=== PATIENT | male | born 1945 | race Caucasian/White ===

== ENCOUNTER 2019-10-21 12:58 | Inpatient (IN) ==
[2019-10-21] MEDS ORDERED: DIPH,PERTUSS(ACELL),TET VAC/PF 0.5 ML SYRINGE IM ONE (13:05)
--- NOTE | 2019-10-21 14:42 | Emergency Department Note ---
HPI General Chief complaint: Fall Stated complaint: R hip pain, Ground level fall Time Seen by Provider: 10/21/19 13:03 Source: patient Mode of arrival: EMS Limitations: no limitations History of Present Illness HPI Narrative: Narrative: Patient presents emergency department for evaluation of right hip and thigh pain after fall. He was standing on a tailgate of a pickup truck tailgate gave way and he slipped and fell to the ground injuring his right hip. He sustained abrasions and skin slip to the elbows. He is not certain his last tetanus immunization was. No other complaints. No other injury. Related Data Home Medications Medication Instructions Recorded Confirmed amlodipine 10 mg PO DAILY 03/14/15 10/21/19 carvedilol 12.5 mg PO ONCE 03/14/15 10/21/19 lisinopril 20 mg PO DAILY 03/14/15 10/21/19 Allergies Allergy/AdvReac Type Severity Reaction Status Date / Time No Known Drug Allergies Allergy Verified 09/18/18 10:25 Review of Systems ROS ROS Narrative: Narrative: As above, all other systems reviewed and negative. [facility] Narrative Patient History Narrative: Narrative: Reviewed Medical/Surgical/Family History All Active Problems (Updated 10/21/19 @ 16:12 by Jerald Edge MD) Cervical disc disease (Chronic) Closed fracture of proximal end of femur (Acute) Medical History Cervical disc disease (Chronic) Social History Smoking Status: Current every day smoker Alcohol Intake Frequency: 2+ drinks per day Substance Use: does not use Exam Narrative Narrative: Narrative: Vital signs reviewed, please see nursing documentation. General Limitations: no limitations General appearance: alert Head Head: atraumatic, normocephalic and normal inspection Eye Eye: Present normal appearance, PERRL and EOMI ENT ENT: Present normal exam Neck Neck: Present normal inspection Respiratory Respiratory: Absent respiratory distress Extremities Extremities: Present other (Right lower extremity with tenderness to palpation over the hip.) Neurological Neurological: Present alert, oriented X3 and CN II-XII intact; Absent motor sensory deficit Psychiatric Psychiatric: Present normal affect Skin Skin: Present warm and dry Course Vital Signs Vital signs: Vital Signs Temperature 98.2 F 10/21/19 13:00 Pulse Rate 54 L 10/21/19 13:00 Respiratory Rate 18 10/21/19 13:00 Blood Pressure 124/112 10/21/19 13:00 Pulse Oximetry (%) 99 10/21/19 13:00 Temperature 98.2 F 10/21/19 13:00 Pulse Rate 60 10/21/19 16:03 Respiratory Rate 15 10/21/19 16:03 Blood Pressure 168/97 10/21/19 15:32 Pulse Oximetry (%) 99 10/21/19 16:03 MDM MDM Narrative Medical decision making narrative: Narrative: Patient medicated with morphine. I spoke with Dr. Fong the patient's orthopedic surgeon and Dr. Gregorio on-call orthopedic surgeon. Case reviewed in detail over the phone. Dr. Gregorio requested the hospitalist service admit the patient and requested a CT of the hip. I spoke with Dr. Ndiaye on-call hospitalist. Case reviewed in detail over the phone. Patient will be admitted to the hospitalist service. Lab Data Result diagrams: 10/21/19 15:40 10/21/19 15:40 Discharge Plan Patient/Caregiver Discharge Instructions Pt seen by PROCESS MECHANIC/PA only: No Clinical Impression: Closed fracture of proximal end of femur Patient Disposition: Xfer As Inpt ([facility]) Follow up with: Dillan Jimenez MD [Primary Care Provider] - Prescriptions: No Action carvedilol 12.5 MG tablet 12.5 mg PO ONCE RF: 0 amlodipine 5 MG tablet 10 mg PO DAILY RF: 0 lisinopril 20 MG tablet 20 mg PO DAILY RF: 0
--- NOTE | 2019-10-21 15:04 | XRay Report ---
CLINICAL INFORMATION: pre op COMPARISON: None. FINDINGS: The heart is mildly enlarged. Mediastinum and pulmonary vessels are normal. Few small calcified granulomas in the perihilar regions noted. No infiltrates or effusions. IMPRESSION: Mild cardiomegaly - no acute disease Interpreted and Authenticated by: Kalyan Jacobs 10/21/19
--- NOTE | 2019-10-21 15:07 | XRay Report ---
CLINICAL INFORMATION: s/p fall COMPARISON: None. FINDINGS: Right total hip prostheses in anatomic alignment. There is an oblique minimally displaced fracture through the intertrochanteric region of the proximal right femur. Moderate degenerative change seen in the left hip and both SI joints. Heavy atherosclerotic calcification seen in the iliac and femoral arteries IMPRESSION: Oblique minimally displaced fracture through the intertrochanteric region of the right femur Interpreted and Authenticated by: Kalyan Jacobs 10/21/19
--- NOTE | 2019-10-21 15:08 | XRay Report ---
CLINICAL INFORMATION: s/p fall COMPARISON: None. FINDINGS: An acute oblique minimally displaced fracture through the intertrochanteric right femur extending through the greater trochanteric base. Right total hip prostheses is anatomically aligned. Atherosclerotic plaque present in the femoral arteries. Mild degenerative change seen in the patellofemoral tibiofemoral joints. IMPRESSION: Oblique minimally displaced intertrochanteric fracture Interpreted and Authenticated by: Kalyan Jacobs 10/21/19
[2019-10-21 16:29] LABS: Basophils # (Auto) 0.06 K/mcL (0.00-0.30); Basophils % (Auto) 0.5 % (0.0-2.0); Eosinophils # (Auto) 0.08 K/mcL (0.00-0.70); Eosinophils % (Auto) 0.6 % (0.0-7.0); Hematocrit 41.4 % (40.1-51.0); Lymphocytes % (Auto) 13.5 % (15.5-49.0); Mean Cell Volume 94.3 fL (80.0-100.0); Mean Corpuscular HGB Conc 36.2 g/dL (31.0-36.0); Mean Platelet Volume 9.6 fL (7.4-10.4); Monocytes # (Auto) 0.93 K/mcL (0.10-0.90); Monocytes % (Auto) 7.4 % (1.0-12.0); Platelet Count 187 K/mcL (140-440); RBC 4.39 M/mcL (4.63-6.08); Red Cell Distribution Width 11.5 % (11.5-14.5); WBC 12.6 K/mcL (4.50-11.00)
[2019-10-21 16:38] LABS: Prothrombin Time 13.9 sec (11.9-14.5)
[2019-10-21 16:45] LABS: Blood Urea Nitrogen 7 mg/dl (8-23); Calcium 8.7 mg/dl (8.6-10.4); Carbon Dioxide 21 mmol/L (22-30); Glomerular Filtration Rate 89; Glucose 105 mg/dL (70-105)
[2019-10-21 16:48] LABS: Chloride 93 mmol/L (96-108)
--- NOTE | 2019-10-21 17:06 | Cat Scan Report ---
CLINICAL INFORMATION: Trauma COMPARISON: None. TECHNIQUE: 0.625 mm helical slices were obtained from the mid L4 through the subtrochanteric regions. Following reconstruction, 2.5 mm sagittal, coronal and axial reformations were processed. The exam was reviewed in bone and soft tissue windows. The exam was performed using radiation dose optimization techniques including, but not limited to, automated exposure control, adjustment of mA and/or kV according to patient size and use of iterative reconstruction technique. FINDINGS: Right total hip prostheses is anatomically aligned. An obliquely oriented, mildly comminuted fracture through the lateral subtrochanteric region is appreciated. Fragments are displaced 1 cm anteriorly and laterally. Within fractures region, there is a 7 cm area of bone loss. The possibility of pathologic fracture from infection or, less likely, tumor should be entertained. No other osseous abnormality. Mild degenerative changes noted in the SI and left hip joints. Prostate, seminal vesicles and urinary bladder are normal. Scattered sigmoid diverticuli appreciated, but no evidence of diverticulitis. The remaining visualized large bowel and small bowel are normal. Only the distal abdominal aorta is visualized: there is a dissection and a 3.5 cm diameter infrarenal aneurysm. Bilateral L5-S1 spondylolysis with grade 1 spondylolisthesis results in severe bilateral IV foraminal narrowing and impingement of the the exiting L5 nerve roots IMPRESSION: 1. Mildly comminuted, obliquely oriented fracture through the lateral subtrochanteric region of the right hip. The fracture line extends adjacent to the femoral stem of the hip prostheses. There is moderate bone loss at the fracture site and thus the possibility of a pathologic fracture from infection or less likely tumor should be entertained. 2. Only the distal infrarenal abdominal aorta is visualized. There is an aneurysm 3.5 cm or greater with associated dissection. Suggest abdominal aortic ultrasound. 3. Chronic bilateral L5-S1 spondylolysis with grade 1 spondylolisthesis resulting in severe IV foraminal narrowing and impingement of the exiting L5 nerve roots. 4. Sigmoid diverticulosis but no evidence of diverticulitis. 5. Moderate distention of the urinary bladder. Consider Ballard catheter placement Interpreted and Authenticated by: Kalyan Jacobs 10/21/19
[2019-10-21 17:53] LABS: Appearance,Urine CLEAR; Bacteria,Urine 0 /hpf (0); Bilirubin,Urine NEG (NEG); Color,Urine STRAW; Culture Indicated,Urine NO; Glucose,Urine (UA) NEGATIVE (NEG); Ketones,Urine NEG (NEG); Leukocyte Esterase,Urine NEG /uL (NEG); Nitrate,Urine NEG (NEG); Protein,Urine 30 mg/dL (NEG); Specific Gravity,Urine 1.006 (1.000-1.035); Urine Blood NEG mg/dL (<0.03); Urine RBC 0 /hpf (0-1); Urine Squamous Epithelial Cell < 1 /hpf (0-4); Urine Transitional Epi Cells < 1 /hpf (0-2); Urine WBC 0 /hpf (0-4); Urobilinogen,Urine NEG (NEG)
--- NOTE | 2019-10-21 18:31 | Internal Med History&Physical ---
HPI History of Present Illness Patient information: Note initiated : 10/21/19 at 6:31 pm Service Date, if different from initiated Date: [] Patient: Pedrito Escudero a 74 y/o M admitted on for R hip pain, Ground level fall. Chief Complaint: Fall/hip fracture History of present illness: Mr. Escudero is a 74 year old M with a history of hypertension presents to the ER following a fall on his right hip. Patient was carrying a load on his pickup truck when the tailgate gave way and slammed his arm was in him to slip and fall on the ground. Patient was brought to the ER. Initial work-up was consistent with subtrochanteric right hip fracture. Orthopedics was consulted and recommended follow-up on Friday for operative intervention. However due to significant pain patient request admission. 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 Case was discussed by ER physician with interventional radiology who recommended outpatient follow-up for evaluation and subsequently hospitalist service was consulted for pain management. Patient received his usual dose of medication including amlodipine lisinopril due to elevated blood pressure around 160s. At the time of my evaluation patient is alert and oriented. History as above. Denies lightheaded dizziness chest pain or palpitation or shortness of breath. Denies lower back pain but endorses to significant right hip and groin pain. Review of systems 10 point review system was performed and is negative except for ones discussed above [facility] Medical History Cervical disc disease (Chronic) Social History (Updated 09/18/18 @ 11:36 by Makayla Myles PA-C) smoking status: Current every day smoker alcohol intake frequency: 2+ drinks per day substance use type: does not use MEDS/ALLERGIES Home Medications and Allergies Home Medications Medication Instructions Recorded Confirmed Type amlodipine 10 mg PO DAILY 03/14/15 10/21/19 History carvedilol 12.5 mg PO ONCE 03/14/15 10/21/19 History lisinopril 20 mg PO DAILY 03/14/15 10/21/19 History hydrocodone-acetaminophen [[place]] 1 - 2 tab PO Q6H PRN #20 tab 10/21/19 Rx Allergies Allergy/AdvReac Type Severity Reaction Status Date / Time No Known Drug Allergies Allergy Verified 09/18/18 10:25 EXAM Constitutional Vitals: Temp Pulse Resp BP Pulse Ox 98.2 F 46 L 15 159/83 97 10/21/19 13:00 10/21/19 18:15 10/21/19 17:49 10/21/19 17:47 10/21/19 18:15 Alert oriented but anxious Head normocephalic Oral cavity moist No ear nose discharge Eye movement symmetrical Neck supple no lymphadenopathy S1-S2 regular Nonlabored breathing Nondistended nontender abdomen Right lower extremity no shortening however significant pain to passive motion Skin no suspicious lesion Psych-cooperative no hallucination delusion Neuro normal higher function DATA Data Completed and Pending Labs on day of discharge: Labs from last 24 hours 10/21/19 10/21/19 10/21/19 17:56 17:05 15:40 WBC RBC Hgb Hct MCV MCH MCHC RDW Plt Count MPV Gran % Lymph % (Auto) [place] % (Auto) Eos % (Auto) Baso % (Auto) Gran # Lymph # (Auto) [place] # (Auto) Eos # (Auto) Baso # (Auto) PT INR APTT Sodium 127 L Potassium 4.5 Chloride 93 L Carbon Dioxide 21 L Anion Gap 13.0 BUN 7 L Creatinine 0.8 GFR Calculation 89 Glucose 105 Calcium 8.7 Urine Color Straw Urine Appearance Clear Urine pH 7.0 Ur Specific [place] 1.006 Urine Protein 30 A Urine Glucose (UA) Negative Urine Ketones Neg Urine Occult Blood Neg Urine Nitrate Neg Urine Bilirubin Neg Urine Urobilinogen Neg Ur Leukocyte Esterase Neg Urine RBC 0 Urine WBC 0 Ur Squamous Epith Cells < 1 Ur Transition Epith Cell < 1 Urine Bacteria 0 Ur Culture Indicated? No COVID-19 PCR Pending 10/21/19 10/21/19 15:40 15:40 WBC 12.6 H RBC 4.39 L Hgb 15.0 Hct 41.4 MCV 94.3 MCH 34.2 H MCHC 36.2 H RDW 11.5 Plt Count 187 MPV 9.6 Gran % 78.0 Lymph % (Auto) 13.5 L [place] % (Auto) 7.4 Eos % (Auto) 0.6 Baso % (Auto) 0.5 Gran # 9.80 H Lymph # (Auto) 1.70 [place] # (Auto) 0.93 H Eos # (Auto) 0.08 Baso # (Auto) 0.06 PT 13.9 INR 1.0 APTT 34 Sodium Potassium Chloride Carbon Dioxide Anion Gap BUN Creatinine GFR Calculation Glucose Calcium Urine Color Urine Appearance Urine pH Ur Specific [place] Urine Protein Urine Glucose (UA) Urine Ketones Urine Occult Blood Urine Nitrate Urine Bilirubin Urine Urobilinogen Ur Leukocyte Esterase Urine RBC Urine WBC Ur Squamous Epith Cells Ur Transition Epith Cell Urine Bacteria Ur Culture Indicated? COVID-19 PCR A/P Narrative A/P Narrative: * Right hip fracture-orthopedics recommends surgery on Friday. However we will continue pain management. Admit as observation. * Infrarenal abdominal type B uncomplicated aortic dissection. Target blood pressure control with systolics less than 140. Interventional radiology consulted and recommends outpatient follow-up for evaluation for endograft repair. Size 3.5 cm without evidence of malperfusion. Abdominal ultrasound * history of hypertension continue BRONSON inhibitor/beta-tri/calcium channel tri and as needed hydralazine * Pain management continue opioids * Full code * Prophylaxis heparin Plan * Observation admit * Pain management * Blood pressure control * Orthopedic consult Time Spent With Patient Time: Total time spent is greater than 50% in coordination of care (as documented) at patient's floor/unit and/or counseling patient:
[2019-10-21] MEDS ORDERED: amLODIPine 10 MG TABLET PO ONE (18:52)
[2019-10-21] MEDS ORDERED: LISINOPRIL 20 MG TABLET PO ONE (18:53)
--- NOTE | 2019-10-21 19:53 | Consultation ---
DATE OF CONSULTATION: 10/21/2019 REASON FOR CONSULTATION: Right periprosthetic femur fracture. PHYSICIAN CONSULTING: Dr. Jerald Edge, ER provider, [facility]. HISTORY OF PRESENT ILLNESS: The patient is a 74-year-old male who earlier this afternoon was unloading a truck that was all plywood when he unlashed the tailgate and it fell down on to him resulting in a fall to the ground. He had immediate pain and inability to ambulate, thus he was brought to the emergency department for further evaluation and treatment. On presentation, he was evaluated and found to have fracture of the right proximal femur, which was periprosthetic in nature. Orthopedics was consulted. On presentation, his primary complaint is right hip pain, but also complains of some discomfort in his right shoulder and also the bottom of the feet bilaterally are kind of cold. PAST MEDICAL HISTORY: Significant for cardiac bigeminy, which he does not have any intervention for in the past and has been stable. He has hypertension. Additional medical problem is celiac disease. PAST SURGICAL HISTORY: Right total hip [place]plasty [place] [address] Hguh Fong. ALLERGIES: NO KNOWN DRUG ALLERGIES. MEDICATIONS: Carvedilol 12.5 mg tablets, amlodipine 5 mg, and lisinopril 20 mg. SOCIAL HISTORY: He does use tobacco on a daily basis. He is and lives with his spouse. He is relatively active, gardening and working around the house. REVIEW OF SYSTEMS: Twelve-point review of systems otherwise negative as mentioned in HPI. PHYSICAL EXAMINATION: VITAL SIGNS: He is afebrile. His blood pressure is 150/90, respiratory rate is 15. His heart rates in the 50s, satting in the 90s on room air. GENERAL: He is alert, oriented, in not acute distress. He is appropriate. HEENT: Head appears atraumatic. EXTREMITIES: Bilateral shoulders reveal that he has an abrasion to his right shoulder, although he has full active range of motion, some discomfort, but not significant and no crepitus with motion. Bilateral elbows, he has abrasions with superficial wounds to his skin; however, he has full active range of motion with no pain, no crepitus with motion. He has full supination and pronation of his forearm. He can make composite fist with flat hand. His pelvis is stable to compression. Bilateral lower extremities, the leg lengths are essentially equal. His right leg is slightly shorter, but this is his baseline. No pain with log roll of the left hip. No tenderness about the knee, the foot, or the ankle. No obvious deformity noted. The right lower extremity does have significant pain with any motion of the hip joint itself, was mostly deferred. No significant knee joint effusion. He does have a bit of atrophy of his quads bilaterally. He has no tenderness about the leg, the foot, or the ankle. His foot is warm and well perfused. Gross sensation to light touch is intact includes sensation of the plantar surface of his foot; however, he reports that it is slightly numb secondary to being cold, is what he believes. IMAGING DATA: He has plain films of the right femur and pelvis demonstrate a well-positioned right total hip arthroplasty in place, it is stable when I compared to radiographs from 2013 based on clinical radiographs with some subsidence compared to the initial postoperative radiographs; however, had been stable since then. He does have what appears to be greater trochanteric femur fracture and question whether this extends medially as it appears to be all laterally based. He has a CT scan that does demonstrate a periprosthetic femur fracture; however, there appears to be a small portion of that involves the medial and proximal portion of the calcars or the femoral neck as well. The implant is in reduced position. He does have some significant atherosclerosis of the femoral arteries, which are also apparent on the radiographs. Labs are pending. EKG is pending. ASSESSMENT AND PLAN: This is a 74-year-old male with a right periprosthetic greater trochanteric femur fracture. I discussed the diagnosis with him at length along with treatment options. I do think that the operative treatment will be beneficial for him. The question is whether the stem is loose or fixed. This is a proximally coated implant, which has proximal fixation. Given the nature of the fracture, there is a risk that the stem is loose. I think if planning for surgery, we had to plan for revision of the stem component. In discussing this with him as well as the implant company, the stem is not available today and has to be ordered. I discussed with the patient as well as with Dr. Hugh Fong. Given the circumstances, plan will be for ordering the stem and will do this on an outpatient basis. Plan for operative fixation of the right periprosthetic proximal femur fracture and potential stem revision on Friday. We will fix the greater trochanter with a [employer] plate. The patient does understand this. He will be discharged with pain medications and he has a walker and crutches already. He can be foot flat weightbearing, nonweightbearing as tolerated. ADRIANNE:stacie Job ID: [id number] Doc ID: [id number] Raji Gregorio MD
[2019-10-21] MEDS ORDERED: BISACODYL 10 MG SUPP.RECT PR PRN (20:14)
[2019-10-21] MEDS ORDERED: hydrALAZINE 20 MG/ML VIAL IV PRN ×2 (20:14→21:46)
[2019-10-21] MEDS ORDERED: MAGNESIUM SULFATE 2 GM/50 ML BAG IV PRN (20:14)
[2019-10-21] MEDS ORDERED: ONDANSETRON 4 MG ODT TABLET SL PRN (20:14)
[2019-10-21] MEDS ORDERED: POTASSIUM CHLORIDE 20 MEQ PACKET PO PRN (20:14)
[2019-10-21] MEDS ORDERED: POLYETHYLENE GLYCOL 3350 17 GM PACKET PO PRN (20:14)
[2019-10-21] MEDS ORDERED: ACETAMINOPHEN 325 MG TABLET PO PRN (20:14)
[2019-10-21] MEDS ORDERED: CARVEDILOL 12.5 MG TABLET PO SCH (20:14)
[2019-10-21] MEDS ORDERED: ACETAMINOPHEN 650 MG/65 ML BOTTLE IV PRN (20:14)
[2019-10-21] MEDS: SENNOSIDES/DOCUSATE SODIUM 1 TAB TABLET PO SCH (21:28)
[2019-10-21] MEDS: HYDROcodone/APAP 5/325MG TABLET PO PRN (21:28)
[2019-10-21] MEDS: DOCUSATE SODIUM 100 MG CAPSULE PO SCH (21:28)
[2019-10-21] MEDS: 0.9 % SODIUM CHLORIDE 10 ML SYRINGE IV SCH (22:36)
[2019-10-21] MEDS ORDERED: CARVEDILOL 6.25 MG TABLET ONE (22:37)
--- NOTE | 2019-10-22 02:33 | Ultrasound Report ---
CLINICAL INFORMATION: aortic disscetion COMPARISON: Pelvic CT 10/21/2019 FINDINGS: Fusiform infrarenal abdominal aortic aneurysm with maximal diameter 4 cm in length and 6.8 cm appreciated. Dissection is seen within the infrarenal segment, but this cannot be followed to the proximal termination due to patient body habitus. No periaortic hemorrhage. Both common iliac arteries are normal in diameter - ETT is 1 cm. There is a critical stenosis in the right common iliac artery with minimal blood flow arterial Doppler. Left common iliac artery is patent. IMPRESSION: Fusiform infrarenal abdominal aortic aneurysm 4 cm diameter and 6.8 cm in length. Dissection flap is seen within the aneurysm but cannot be followed more proximally due to patient body habitus. 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 Suggest: CT abdominal aortogram with run off. If the patient cannot tolerate iodinated contrast, then MR abdominal aortogram with runoff would be an adequate substitute exam. Interpreted and Authenticated by: Kalyan Jacobs 10/22/19
[2019-10-22] MEDS ORDERED: hydrALAZINE 20 MG/ML VIAL ONE (02:37)
[2019-10-22] MEDS: HYDROcodone/APAP 5/325MG TABLET PO PRN ×3 (03:09→13:10)
[2019-10-22] MEDS: HYDROmorphone 0.5 MG/0.5 ML SYRINGE IV PRN ×2 (04:03→19:26)
[2019-10-22] MEDS: 0.9 % SODIUM CHLORIDE 10 ML SYRINGE IV SCH ×3 (04:04→21:11)
[2019-10-22] MEDS: ONDANSETRON 4 MG/2 ML VIAL IV PRN ×3 (04:47→16:11)
[2019-10-22 07:10] LABS: Hematocrit 39.9 % (40.1-51.0); Hemoglobin 13.6 g/dL (13.7-17.5); Mean Corpuscular HGB Conc 34.1 g/dL (31.0-36.0); Mean Platelet Volume 9.4 fL (7.4-10.4); Platelet Count 180 K/mcL (140-440); RBC 4.07 M/mcL (4.63-6.08); Red Cell Distribution Width 11.8 % (11.5-14.5); WBC 11.3 K/mcL (4.50-11.00)
[2019-10-22 07:38] LABS: Chloride 97 mmol/L (96-108)
[2019-10-22 07:39] LABS: ALT/SGPT 13 U/l (0-40); AST/SGOT 21 U/l (0-37); Albumin 3.6 gm/dL (3.2-5.2); Albumin/Globulin Ratio 1.6 (1.0-2.3); Alkaline Phosphatase 45 U/L (39-117); Bilirubin,Direct 0.3 mg/dL (0.0-0.3); Bilirubin,Total 1.1 mg/dL (0.0-1.0); Blood Urea Nitrogen 10 mg/dl (8-23); Calcium 8.5 mg/dl (8.6-10.4); Carbon Dioxide 17 mmol/L (22-30); Globulin 2.2 gm/dL (2.2-3.7); Glomerular Filtration Rate 89; Glucose 116 mg/dL (70-105); Lactate Dehydrogenase 182 U/L (94-250); Triglycerides 123 mg/dl (<150); Uric Acid 6.7 mg/dL (2.5-8.0)
[2019-10-22] MEDS: DOCUSATE SODIUM 100 MG CAPSULE PO SCH ×2 (08:55→21:10)
[2019-10-22] MEDS: CARVEDILOL 12.5 MG TABLET PO SCH (08:56)
[2019-10-22] MEDS: LISINOPRIL 20 MG TABLET PO SCH (08:56)
[2019-10-22 09:00] LABS: Eosinophils % (Manual) 1 % (0-7); Lymphocytes % 10 % (15-49); Monocytes % (Manual) 11 % (1-12); Platelet Estimate NORMAL (NORMAL); RBC Morphology NORMAL (NORMAL); Segmented Neutrophils % 78 % (38-78)
[2019-10-22] MEDS ORDERED: amLODIPine 5 MG TABLET PO SCH (09:00)
--- NOTE | 2019-10-22 10:07 | Internal Med Progress Note ---
SUBJECTIVE Subjective Patient information: Note initiated : 10/22/19 at 10:04 am Service Date, if different from initiated Date: [] Patient: Pedrito Escudero a 74 y/o M admitted on 10/21/19 for R hip pain, Ground level fall. Chief Complaint: [] History of present illness: Mr. Escudero is a 74 year old M with a history of hypertension presents to the ER following a fall on his right hip. Patient was carrying a load on his pickup truck when the tailgate gave way and slammed his arm was in him to slip and fall on the ground. Patient was brought to the ER. Initial work-up was consistent with subtroc hanteric right hip fracture. Orthopedics was consulted and recommended follow- up on Friday for operative intervention. However due to significant pain patient request admission. 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 Case was discussed by ER physician with interventional radiology who recommended outpatient follow-up for evaluation and subsequently hospitalist service was consulted for pain management. Patient received his usual dose of medication including amlodipine lisinopril due to elevated blood pressure around 160s. At the time of my evaluation patient is alert and oriented. History as above. Denies lightheaded dizziness chest pain or palpitation or shortness of breath. Denies lower back pain but endorses to significant right hip and groin pain. 10/21-patient doing a lot better. However overnight remains in pain. On antihypertensives. Blood pressure around 150 this morning. Per Ortho recommendations patient can be weightbearing as tolerated. Physical therapy ongoing. White count 11.3. Constitutional Vitals: Vital Signs Temp Pulse Resp BP Pulse Ox 98.4 F 48 L 16 128/68 98 10/22/19 07:23 10/22/19 07:23 10/22/19 07:23 10/22/19 07:23 10/22/19 07:23 Period Temp Pulse Resp BP Sys/Castro Pulse Ox Last 24 Hr 97.2 F-99.5 F 30-60 10-20 124-195/68-164 96-100 Intake and Output 10/21/19 10/22/19 10/22/19 21:59 05:59 13:59 Intake Total 700 240 Output Total 500 600 Balance -500 100 240 Weight 85.899 kg Alert oriented nonlabored breathing Anxious due to pain Resting in bed Intake & Output: Intake & Output 10/21/19 10/22/19 10/22/19 21:59 05:59 13:59 Intake Total 700 240 Output Total 500 600 Balance -500 100 240 Weight 85.899 kg Intake: Oral 700 240 Output: Void Amount 500 600 Other: Meal Breakfast Percent of Meal Consumed 75% Feeding Ability Independent Urine Appearance Clear OBJ DATA Labs CBC & Chem 7: 10/22/19 05:40 10/22/19 05:40 Labs: Abnormal Lab Results 10/22/19 10/22/19 10/21/19 05:40 05:40 17:05 WBC 11.3 H RBC 4.07 L Hgb 13.6 L Hct 39.9 L MCH MCHC Lymph % (Auto) Gran # [place] # (Auto) Lymphocytes % 10 L Sodium 128 L Chloride Carbon Dioxide 17 L BUN Glucose 116 H Calcium 8.5 L Total Bilirubin 1.1 H GGT 65 H Total Protein 5.8 L Urine Protein 30 A 10/21/19 10/21/19 15:40 15:40 WBC 12.6 H RBC 4.39 L Hgb Hct MCH 34.2 H MCHC 36.2 H Lymph % (Auto) 13.5 L Gran # 9.80 H [place] # (Auto) 0.93 H Lymphocytes % Sodium 127 L Chloride 93 L Carbon Dioxide 21 L BUN 7 L Glucose Calcium Total Bilirubin GGT Total Protein Urine Protein Meds: Medications Acetaminophen (Tylenol) 650 mg PO Q4-6HP PRN; Protocol PRN Reason: Per Pain Protocol/Fever > 101 Hydrocodone Bitart/Acetaminophen ([place] 5/325mg) 0 tab PO Q4HP PRN; Protocol PRN Reason: Per Pain Protocol Last Admin: 10/22/19 08:54 Dose: 2 tab Documented by: Amlodipine Besylate (Norvasc) 10 mg PO [facility] Bisacodyl (Dulcolax) 10 mg [place] Q2-3DAYS PRN PRN Reason: Constipation [facility]il[facility] ([facility]) [facility] Last Admin: 10/22/19 08:56 Dose: Not Given Documented by: Docusate Sodium (Colace) 100 mg PO BID [facility] Last Admin: 10/22/19 08:55 Dose: 100 mg Documented by: Heparin Sodium (Porcine) (Heparin) 5,000 unit SQ Q12 [facility] Hydralazine HCl (Apresoline) 20 mg IV Q4-6HP PRN PRN Reason: hypertension over 150 Hydromorphone HCl (Dilaudid) 0 mg IV Q4HP PRN; Protocol PRN Reason: Per Pain Protocol Last Admin: 10/22/19 04:03 Dose: 0.5 mg Documented by: Acetaminophen (Ofirmev) 650 mg in 65 mls @ 130 mls/hr IV Q6HP PRN; Protocol PRN Reason: Per Pain Protocol/Fever > 101 Magnesium Sulfate (Magnesium Sulfate) 2 gm in 50 mls @ 50 mls/hr IV UD PRN PRN Reason: MG = or < 1.7 Lisinopril (Zestril) 20 mg PO DAILY [facility] Last Admin: 10/22/19 08:56 Dose: 20 mg Documented by: Melatonin (Melatonin 3mg Tablet) 3 mg PO HSP PRN PRN Reason: Insomnia Nicotine (Nicoderm) 21 mg TOPICAL DAILY@1000 SELMA Ondansetron HCl (Zofran Odt) 4 mg SL Q4-6HP PRN; Protocol PRN Reason: Nausea And Vomiting Ondansetron HCl (Zofran) 4 mg IV Q4-6HP PRN; Protocol PRN Reason: Nausea And Vomiting Last Admin: 10/22/19 04:47 Dose: 4 mg Documented by: Polyethylene Glycol (Miralax) 17 gm PO DAILYP PRN PRN Reason: Constipation Potassium Chloride (Klor-Con) 40 meq PO DAILYP PRN PRN Reason: K+ < 3.5 Senna/Docusate Sodium (Senna Plus Tablet) 1 tab PO HS [facility] Last Admin: 10/21/19 21:28 Dose: 1 tab Documented by: Sodium Chloride (Saline Flush) 10 ml IV Q8 [facility] Last Admin: 10/22/19 04:04 Dose: 10 ml Documented by: A/P Narrative A/P Narrative: * Right hip fracture-orthopedics recommends surgery on Friday. However pain inadequately controlled. Patient will transition to inpatient status * Infrarenal abdominal type B uncomplicated aortic dissection. Target blood pressure control with systolics less than 140. Interventional radiology consulted and recommends outpatient follow-up for evaluation for endograft repair. Size 3.5 cm without evidence of malperfusion. CT abdomen with contrast * history of hypertension continue BRONSON inhibitor/beta-tri/calcium channel tri and as needed hydralazine. Target systolics less than 150 * Pain management continue opioids * Full code * Prophylaxis heparin Plan * Continue pain management * Likely Friday * DVT prophylaxis * CT angiogram chest * Blood pressure control Time Spent With Patient Time: Total time spent is greater than 50% in coordination of care (as documented) at patient's floor/unit and/or counseling patient: QUALITY VTE Deep Vein Thrombosis/Pulmonary Embolism Present on Admission: No
[2019-10-22] MEDS: NICOTINE 21 MG PATCH TOPICAL SCH (10:46)
[2019-10-22] MEDS: HEPARIN 5,000 UNIT/ML VIAL SQ SCH ×2 (10:47→21:10)
[2019-10-22] MEDS: METHOCARBAMOL 750 MG TABLET PO PRN (12:00)
[2019-10-22] MEDS: PROMETHAZINE 25 MG/ML VIAL IV PRN (20:50)
[2019-10-22] MEDS: amLODIPine 10 MG TABLET PO SCH (21:10)
[2019-10-22] MEDS: SENNOSIDES/DOCUSATE SODIUM 1 TAB TABLET PO SCH (21:10)
[2019-10-22] MEDS: LORazepam 2 MG/ML VIAL IV PRN ×2 (21:11→22:26)
[2019-10-23] MEDS: HYDROmorphone 0.5 MG/0.5 ML SYRINGE IV PRN ×2 (01:21→16:04)
[2019-10-23] MEDS: LORazepam 2 MG/ML VIAL IV PRN ×3 (01:22→18:04)
[2019-10-23] MEDS: 0.9 % SODIUM CHLORIDE 10 ML SYRINGE IV SCH ×3 (06:06→20:33)
[2019-10-23] MEDS: HYDROcodone/APAP 5/325MG TABLET PO PRN ×4 (06:06→22:09)
[2019-10-23] MEDS ORDERED: 0.9 % SODIUM CHLORIDE 1,000 ML IV ONE (06:22)
[2019-10-23] MEDS ORDERED: cloNIDine TTS 2 1 PATCH PATCH TD ONE (06:23)
[2019-10-23] MEDS ORDERED: GABAPENTIN 300 MG CAPSULE PO ONE (06:26)
[2019-10-23] MEDS: HEPARIN 5,000 UNIT/ML VIAL SQ SCH ×2 (07:58→20:33)
[2019-10-23] MEDS: LISINOPRIL 20 MG TABLET PO SCH (07:59)
[2019-10-23] MEDS: DOCUSATE SODIUM 100 MG CAPSULE PO SCH ×2 (07:59→20:33)
[2019-10-23] MEDS: CARVEDILOL 12.5 MG TABLET PO SCH (08:00)
[2019-10-23] MEDS: 0.9 % SODIUM CHLORIDE 1,000 ML IV SCH ×5 (08:54→22:18)
[2019-10-23 09:16] LABS: Hematocrit 31.5 % (40.1-51.0); Hemoglobin 11.3 g/dL (13.7-17.5); Mean Cell Volume 95.2 fL (80.0-100.0); Mean Corpuscular HGB Conc 35.9 g/dL (31.0-36.0); Mean Platelet Volume 9.9 fL (7.4-10.4); Platelet Count 160 K/mcL (140-440); RBC 3.31 M/mcL (4.63-6.08); Red Cell Distribution Width 11.5 % (11.5-14.5); WBC 9.8 K/mcL (4.50-11.00)
[2019-10-23] MEDS: NICOTINE 21 MG PATCH TOPICAL SCH (10:04)
--- NOTE | 2019-10-23 10:10 | Cat Scan Report ---
CLINICAL INFORMATION: Abdominal aortic dissection COMPARISON: None. TECHNIQUE: 120 cc of Isovue-370 were injected intravenously and, using SmartPrep to maximize arterial opacification, 0.625 mm helical slices were obtained from the diaphragm through the feet following reconstruction, 2.5 mm sagittal, coronal and axial reformatted images were processed and reviewed at bone and soft tissue windows. 3-D volume rendered and selective CPR images were constructed on an independent workstation.The exam was performed using radiation dose optimization techniques including, but not limited to, automated exposure control, adjustment of the mA and/or kV according to patient size and use of iterative reconstruction technique. FINDINGS: A short segment dissection of the infrarenal abdominal aorta spans 4.5 cm in length and 3.4 cm diameter . The false lumen is completely thrombosed. The suprarenal abdominal aorta is normal diameter 2 cm. Celiac artery is widely patent. The SMA is occluded proximally with collateral reconstitution 2 cm from the origin. There is stenosis greater than 50% in both renal artery orifices. The SIDNEY is patent. Right leg runoff: Complete occlusion of the right common/ external iliac, common femoral and superficial femoral arteries with collateral reconstitution of the proximal popliteal artery. Three vessel trifurcation runoff is patent to ankle level. Left leg runoff: The common iliac is widely patent. There are 2-3 50% stenoses in the external iliac artery. Common femoral and superficial femoral arteries are occluded with collateral reconstitution of the mid popliteal artery. There is faint three-vessel trifurcation runoff to the ankle. Axial images show moderate dilatation of the common bile duct 10 mm due to a 3 cm periampullary diverticulum extrinsically compressing the intrapancreatic common bile duct. 2.4 cm well-circumscribed slightly dense lesion in the superior pole the right kidney likely hyperdense cyst, but suggest ultrasound to confirm. Moderate-sized left scrotal hydrocele noted.. Chronic bilateral L5-S1 spondylolysis with grade 1 spondylolisthesis appreciated IMPRESSION: 1. Short segment dissection of the infrarenal abdominal aorta: 4.5 cm in length and 3.4 cm diameter. The false lumen is completely thrombosed. 2. Proximal SMA occlusion with collateral reconstitution. The celiac and SIDNEY arteries are widely patent. 3. Greater than 50% stenosis of both renal artery origins. 4. Right leg runoff: Complete occlusion of the right iliac, external iliac, common femoral and superficial femoral arteries with collateral reconstitution of the proximal popliteal artery. Three vessel trifurcation runoff is patent to the ankle level. 5.Left leg runoff: The common iliac is widely patent. There are 50% stenoses in the external iliac artery. Common femoral and superficial femoral arteries are occluded with collateral reconstitution of the mid popliteal artery. There is faint three-vessel trifurcation runoff to the ankle. 6. 2.4 cm dense lesion in the superior pole the right kidney. This is likely a hyperdense cyst. Suggest renal ultrasound confirmed. 7. 3 cm periampullary diverticulum extrinsically compressing the intrapancreatic common bile duct resulting in moderate common bile duct dilatation: 10 mm 8. Moderate left scrotal hydrocele Suggest: referral to interventional radiology for standard contrast abdominal aortogram and runoff to confirm the findings of this exam. The patient will likely eventually require surgical bypass grafts in the lower extremity arterial vasculature Interpreted and Authenticated by: Kalyan Jacobs 10/23/19
[2019-10-23 10:44] LABS: ALT/SGPT 11 U/l (0-40); AST/SGOT 18 U/l (0-37); Albumin 3.3 gm/dL (3.2-5.2); Albumin/Globulin Ratio 1.5 (1.0-2.3); Alkaline Phosphatase 45 U/L (39-117); Bilirubin,Direct 0.3 mg/dL (0.0-0.3); Blood Urea Nitrogen 12 mg/dl (8-23); Calcium 8.5 mg/dl (8.6-10.4); Globulin 2.2 gm/dL (2.2-3.7); Glomerular Filtration Rate 89; Glucose 94 mg/dL (70-105); Lactate Dehydrogenase 171 U/L (94-250); Phosphorous 3.3 mg/dL (2.7-4.5); Triglycerides 111 mg/dl (<150)
[2019-10-23 10:45] LABS: Carbon Dioxide 22 mmol/L (22-30); Chloride 89 mmol/L (96-108)
[2019-10-23 11:05] LABS: Band Neutrophils % 3 % (0-10); Eosinophils % (Manual) 1 % (0-7); Lymphocytes % 12 % (15-49); Monocytes % (Manual) 8 % (1-12); Platelet Estimate NORMAL (NORMAL); RBC Morphology NORMAL (NORMAL); Reactive Lymphocytes 1 % (0-2); Segmented Neutrophils % 75 % (38-78)
--- NOTE | 2019-10-23 11:46 | Discharge Summary ---
Discharge Provider Provider Patient information: Note initiated : 10/23/19 at 11:40 am Service Date, if different from initiated Date: [] Patient: Pedrito Escudero a 74 y/o M admitted on 10/21/19 for R hip pain, Ground level fall. Chief Complaint: Discharge diagnosis * Right hip fracture-orthopedics recommends surgery on Friday. Pain adequately controlled. Requesting discharge. Patient will return for operative intervention today * Infrarenal abdominal type B uncomplicated aortic dissection. Systolics at goal around 130s. Interventional radiology consulted and recommends outpatient follow-up for evaluation for endograft repair. Size 3.5 cm without evidence of malperfusion. ( CT abdomen with contrast reveals 4.5 cm x 3.5 cm diameter infrarenal abdominal aortic dissection with complete thrombosis of false lumen. Suggested referral for interventional radiology for standard contrast abdominal aortogram and runoff to confirm the findings. Patient will likely eventually require surgical bypass graft in the lower extremity arterial vasculature) * history of hypertension well-controlled on BRONSON inhibitor/beta-tri/calcium channel tri and as needed hydralazine. Target systolics less than 150 * Pain management well controlled on opioids Brief hospital course istory of present illness: Mr. Escudero is a 74 year old M with a history of hypertension presents to the ER following a fall on his right hip. Patient was carrying a load on his pickup truck when the tailgate gave way and slammed his arm was in him to slip and fall on the ground. Patient was brought to the ER. Initial work-up was consistent with subtrochanteric right hip fracture. Orthopedics was consulted and recommended follow-up on Friday for operative intervention. However due to significant pain patient request admission. 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 Case was discussed by ER physician with interventional radiology who recommended outpatient follow-up for evaluation and subsequently hospitalist service was consulted for pain management. Patient received his usual dose of medication including amlodipine lisinopril due to elevated blood pressure around 160s. At the time of my evaluation patient is alert and oriented. History as above. Denies lightheaded dizziness chest pain or palpitation or shortness of breath. Denies lower back pain but endorses to significant right hip and groin pain. 10/21-patient doing a lot better. However overnight remains in pain. On antihypertensives. Blood pressure around 150 this morning. Per Ortho recommendations patient can be weightbearing as tolerated. Physical therapy ongoing. White count 11.3. 8/8-patient doing a lot better. Feels at baseline. Requesting discharge. Will return for operative intervention on Friday. Will be weightbearing as tolerated as per Ortho with recommendations and use of walker. Date of admission: 10/21/19 19:15 Primary care physician: Dillan Jimenez Consults: 10/21/19 Consult to Physician [CONS] Stat Comment: Consulting Provider: Anatoliy Gaitan Reason For Exam: Physician to Consult Consult to Physician [CONS] Stat Comment: Consulting Provider: Raji Gregorio Reason For Exam: Physician to Consult Discharge Meds Discharge Medications Home Medications amlodipine 10 mg PO DAILY 03/14/15 [History Confirmed 10/21/19 Last Taken 10/21/19] carvedilol 12.5 mg PO DAILY 03/14/15 [History Confirmed 10/21/19 Last Taken 10/21/19 07:00] lisinopril 20 mg PO DAILY 03/14/15 [History Confirmed 10/21/19 Last Taken 10/21/19] hydrocodone-acetaminophen 1 tab PO Q4HP PRN #14 tab 10/23/19 [Rx Last Taken Unknown] methocarbamol 750 mg PO BIDP PRN #10 tab 10/23/19 [Rx Last Taken Unknown] COURSE Time Spent with Patient Time attestation: Total time spent providing and/or coordinating discharge services: EXAM Constitutional Vitals: Temp Pulse Resp BP Pulse Ox 97.7 F 55 L 18 134/69 97 10/23/19 09:00 10/23/19 09:00 10/23/19 09:00 10/23/19 09:00 10/23/19 09:00 Discharge Data Data Completed and Pending Labs on day of discharge: Labs from last 24 hours 10/23/19 10/23/19 07:12 07:12 WBC 9.8 RBC 3.31 L Hgb 11.3 L Hct 31.5 L MCV 95.2 MCH 34.1 H MCHC 35.9 RDW 11.5 Plt Count 160 MPV 9.9 Total Counted 100 Seg Neutrophils % 75 Band Neutrophils % 3 Lymphocytes % 12 L Monocytes % (Manual) 8 Eosinophils % (Manual) 1 Reactive Lymphocytes 1 Platelet Estimate Normal RBC Morphology Normal Sodium 122 L Potassium 4.3 Chloride 89 L Carbon Dioxide 22 Anion Gap 11.0 BUN 12 Creatinine 0.8 GFR Calculation 89 Glucose 94 Uric Acid 6.0 Calcium 8.5 L Phosphorus 3.3 Magnesium 1.8 Total Bilirubin 1.0 Direct Bilirubin 0.3 GGT 52 AST 18 ALT 11 Alkaline Phosphatase 45 Lactate Dehydrogenase 171 Total Protein 5.5 L Albumin 3.3 Globulin 2.2 Albumin/Globulin Ratio 1.5 Triglycerides 111 Discharge Plan Patient/Caregiver Discharge Instructions Activity: ambulate only with your walker Diet: Regular Diet Instructions: Leg Fracture (ED) Activity Restrictions/Additional Instructions: Follow up with orthopedic surgery as instructed. [place] rx: no alcohol, driving, or tylenol with this med. Prescriptions: New hydrocodone-acetaminophen 5-325 mg Tablet 1 tab PO Q4HP PRN (Reason: Per Pain Protocol) Qty: 14 RF: 0 methocarbamol 750 mg Tablet 750 mg PO BIDP PRN (Reason: Muscle Spasm) Qty: 10 RF: 0 Continued carvedilol 12.5 MG tablet 12.5 mg PO DAILY RF: 0 amlodipine 5 MG tablet 10 mg PO DAILY RF: 0 lisinopril 20 MG tablet 20 mg PO DAILY RF: 0 Follow Up Plan Follow up with: Dillan Jimenez MD [Primary Care Provider] - Patient Disposition: Home, Self-Care Prognosis: Fair Rehab Potential: Good I certify that the patient requires SNF services: No Overall status at discharge: patient is progressing back to baseline Interventions Interventions: IV at Discharge Last Done: 10/21/19 19:24 QUALITY VTE Deep Vein Thrombosis/Pulmonary Embolism Present on Admission: No
[2019-10-23] MEDS: METHOCARBAMOL 750 MG TABLET PO PRN (14:31)
--- NOTE | 2019-10-23 15:01 | Internal Med Progress Note ---
SUBJECTIVE Subjective Patient information: Note initiated : 10/23/19 at 2:55 pm Service Date, if different from initiated Date: [] Patient: Pedrito Escudero a 74 y/o M admitted on 10/21/19 for R hip pain, Ground level fall. Chief Complaint: History of present illness: Mr. Escudero is a 74 year old M with a history of hypertension presents to the ER following a fall on his right hip. Patient was carrying a load on his pickup truck when the tailgate gave way and slammed his arm was in him to slip and fall on the ground. Patient was brought to the ER. Initial work-up was consistent with subtrocha nteric right hip fracture. Orthopedics was consulted and recommended follow-up on Friday for operative intervention. However due to significant pain patient request admission. 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 Case was discussed by ER physician with interventional radiology who recommended outpatient follow-up for evaluation and subsequently hospitalist service was consulted for pain management. Patient received his usual dose of medication including amlodipine lisinopril due to elevated blood pressure around 160s. At the time of my evaluation patient is alert and oriented. History as above. Denies lightheaded dizziness chest pain or palpitation or shortness of breath. Denies lower back pain but endorses to significant right hip and groin pain. 10/21-patient doing a lot better. However overnight remains in pain. On antihypertensives. Blood pressure around 150 this morning. Per Ortho recommendations patient can be weightbearing as tolerated. Physical therapy ongoing. White count 11.3. 10/22-patient continues to experience pain in very concerned about gait instability. Spouse at bedside. We will continue pain management/PT OT until patient undergoes surgery. Tolerating diet. No signs of alcohol withdrawal this morning. Lucid alert. On twice a day oral alcohol. Blood pressures at goal. No abdominal pain Constitutional Vitals: Vital Signs Temp Pulse Resp BP Pulse Ox 99.4 F H 53 L 18 109/63 93 10/23/19 13:00 10/23/19 13:00 10/23/19 13:00 10/23/19 13:00 10/23/19 13:00 Period Temp Pulse Resp BP Sys/Castro Pulse Ox Last 24 Hr 97.5 F-99.4 F 43-66 16-20 81-157/61-87 92-98 Intake and Output 10/23/19 10/23/19 10/23/19 05:59 13:59 21:59 Intake Total 300 1927 Output Total 250 350 Balance 50 1577 Weight 86.183 kg Patient Weight 10/24/19 05:59 W eight 86.183 kg alert oriented Nonlabored breathing Right lower extremity tenderness hip/passive range of motion No lymphedema Intake & Output: Intake & Output 10/23/19 10/23/19 10/23/19 05:59 13:59 21:59 Intake Total 300 1927 Output Total 250 350 Balance 50 1577 Weight 86.183 kg Intake: IV 887 Sodium Chloride 0.9% 1,000 ml @ 887 100 mls/hr IV .Q10H [facility] Rx#: [id number] Oral 300 1040 Output: Void Amount 250 350 Other: Meal Lunch Percent of Meal Consumed 100% Urine Appearance Clear Urine Color Dark Yellow OBJ DATA Labs CBC & Chem 7: 10/23/19 07:12 10/23/19 07:12 Labs: Abnormal Lab Results 10/23/19 10/23/19 10/22/19 07:12 07:12 05:40 WBC RBC 3.31 L Hgb 11.3 L Hct 31.5 L MCH 34.1 H MCHC Lymph % (Auto) Gran # [place] # (Auto) Lymphocytes % 12 L Sodium 122 L 128 L Chloride 89 L Carbon Dioxide 17 L BUN Glucose 116 H Calcium 8.5 L 8.5 L Total Bilirubin 1.1 H GGT 65 H Total Protein 5.5 L 5.8 L Urine Protein 10/22/19 10/21/19 10/21/19 05:40 17:05 15:40 WBC 11.3 H RBC 4.07 L Hgb 13.6 L Hct 39.9 L MCH MCHC Lymph % (Auto) Gran # [place] # (Auto) Lymphocytes % 10 L Sodium 127 L Chloride 93 L Carbon Dioxide 21 L BUN 7 L Glucose Calcium Total Bilirubin GGT Total Protein Urine Protein 30 A 10/21/19 15:40 WBC 12.6 H RBC 4.39 L Hgb Hct MCH 34.2 H MCHC 36.2 H Lymph % (Auto) 13.5 L Gran # 9.80 H [place] # (Auto) 0.93 H Lymphocytes % Sodium Chloride Carbon Dioxide BUN Glucose Calcium Total Bilirubin GGT Total Protein Urine Protein Meds: Medications Acetaminophen (Tylenol) 650 mg PO Q4-6HP PRN; Protocol PRN Reason: Per Pain Protocol/Fever > 101 Hydrocodone Bitart/Acetaminophen ([place] 5/325mg) 0 tab PO Q4HP PRN; Protocol PRN Reason: Per Pain Protocol Last Admin: 10/23/19 13:34 Dose: 2 tab Documented by: Amlodipine Besylate (Norvasc) 10 mg PO HS [facility] Last Admin: 10/22/19 21:10 Dose: 10 mg Documented by: Bisacodyl (Dulcolax) 10 mg [place] Q2-3DAYS PRN PRN Reason: Constipation [facility] ([facility]) [facility] Last Admin: 10/23/19 08:00 Dose: 12.5 mg Documented by: Docusate Sodium (Colace) 100 mg PO BID [facility] Last Admin: 10/23/19 07:59 Dose: 100 mg Documented by: Heparin Sodium (Porcine) (Heparin) 5,000 unit SQ Q12 [facility] Last Admin: 10/23/19 07:58 Dose: 5,000 unit Documented by: Hydralazine HCl (Apresoline) 20 mg IV Q4-6HP PRN PRN Reason: hypertension over 150 Hydromorphone HCl (Dilaudid) 0 mg IV Q4HP PRN; Protocol PRN Reason: Per Pain Protocol Last Admin: 10/23/19 01:21 Dose: 0.5 mg Documented by: Acetaminophen (Ofirmev) 650 mg in 65 mls @ 130 mls/hr IV Q6HP PRN; Protocol PRN Reason: Per Pain Protocol/Fever > 101 Magnesium Sulfate (Magnesium Sulfate) 2 gm in 50 mls @ 50 mls/hr IV UD PRN PRN Reason: MG = or < 1.7 Sodium Chloride (Sodium Chloride 0.9%) 1,000 mls @ 100 mls/hr IV .Q10H [facility] Last Admin: 10/23/19 12:48 Dose: 100 mls/hr Documented by: Lisinopril (Zestril) 20 mg PO DAILY [facility] Last Admin: 10/23/19 07:59 Dose: 20 mg Documented by: Lorazepam (Ativan) 1 mg IV Q2HP PRN; Protocol PRN Reason: Alcohol Withdrawal Last Admin: 10/23/19 01:41 Dose: 1 mg Documented by: Melatonin (Melatonin 3mg Tablet) 3 mg PO HSP PRN PRN Reason: Insomnia Methocarbamol (Robaxin) 750 mg PO TIDP PRN PRN Reason: Muscle Spasm Last Admin: 10/23/19 14:31 Dose: 750 mg Documented by: Nicotine (Nicoderm) 21 mg TOPICAL DAILY@1000 SELMA Last Admin: 10/23/19 10:04 Dose: 21 mg Documented by: Ondansetron HCl (Zofran Odt) 4 mg SL Q4-6HP PRN; Protocol PRN Reason: Nausea And Vomiting Ondansetron HCl (Zofran) 4 mg IV Q4-6HP PRN; Protocol PRN Reason: Nausea And Vomiting Last Admin: 10/22/19 16:11 Dose: 4 mg Documented by: Polyethylene Glycol (Miralax) 17 gm PO DAILYP PRN PRN Reason: Constipation Potassium Chloride (Klor-Con) 40 meq PO DAILYP PRN PRN Reason: K+ < 3.5 Promethazine HCl (Phenergan) 6.25 mg IV Q4HP PRN PRN Reason: Nausea And Vomiting Last Admin: 10/22/19 20:50 Dose: 6.25 mg Documented by: Senna/Docusate Sodium (Senna Plus Tablet) 1 tab PO HS [facility] Last Admin: 10/22/19 21:10 Dose: 1 tab Documented by: Sodium Chloride (Saline Flush) 10 ml IV Q8 [facility] Last Admin: 10/23/19 13:54 Dose: Not Given Documented by: A/P Narrative A/P Narrative: * Right hip fracture-managed by orthopedics. Continue pain management. Await operative intervention likely on Friday * Infrarenal abdominal type B uncomplicated aortic dissection. Interventional radiology consulted and recommends outpatient follow-up for evaluation for endograft repair. Size 3.5 cm without evidence of malperfusion. ( CT abdomen with contrast reveals 4.5 cm x 3.5 cm diameter infrarenal abdominal aortic dissection with complete thrombosis of false lumen. Suggested referral for interventional radiology for standard contrast abdominal aortogram and runoff to confirm the findings. Patient will likely eventually require surgical bypass graft in the lower extremity arterial vasculature) * history of hypertension well-controlled on BRONSON inhibitor/beta-tri/calcium channel tri and as needed hydralazine. Target systolics less than 150 * Pain management well controlled on opioids CT abdomen with contrast * Full code * Prophylaxis heparin Plan * Continue pain management * Await further orthopedic intervention * Continue DVT prophylaxis * Blood pressure control Time Spent With Patient Time: Total time spent is greater than 50% in coordination of care (as documented) at patient's floor/unit and/or counseling patient: QUALITY VTE Deep Vein Thrombosis/Pulmonary Embolism Present on Admission: No
[2019-10-23] MEDS ORDERED: IOPAMIDOL 150 ML BOTTLE IV ONE (17:34)
[2019-10-23] MEDS: MELATONIN 3 MG TABLET PO PRN (20:33)
[2019-10-23] MEDS: SENNOSIDES/DOCUSATE SODIUM 1 TAB TABLET PO SCH (20:33)
[2019-10-23] MEDS: amLODIPine 10 MG TABLET PO SCH (20:33)
[2019-10-24] MEDS: PROMETHAZINE 25 MG/ML VIAL IV PRN (01:19)
[2019-10-24] MEDS: HYDROcodone/APAP 5/325MG TABLET PO PRN ×5 (02:07→21:17)
[2019-10-24] MEDS: 0.9 % SODIUM CHLORIDE 1,000 ML IV SCH ×2 (03:41→09:08)
[2019-10-24] MEDS: 0.9 % SODIUM CHLORIDE 10 ML SYRINGE IV SCH ×3 (06:06→22:05)
[2019-10-24 08:34] LABS: Hematocrit 30.6 % (40.1-51.0); Hemoglobin 10.6 g/dL (13.7-17.5); Mean Cell Volume 97.8 fL (80.0-100.0); Mean Corpuscular HGB Conc 34.6 g/dL (31.0-36.0); Platelet Count 164 K/mcL (140-440); RBC 3.13 M/mcL (4.63-6.08); Red Cell Distribution Width 11.8 % (11.5-14.5); WBC 10.4 K/mcL (4.50-11.00)
[2019-10-24] MEDS: HEPARIN 5,000 UNIT/ML VIAL SQ SCH ×2 (08:43→21:16)
[2019-10-24] MEDS: DOCUSATE SODIUM 100 MG CAPSULE PO SCH ×2 (08:43→21:16)
[2019-10-24] MEDS: CARVEDILOL 12.5 MG TABLET PO SCH (08:44)
[2019-10-24] MEDS: LISINOPRIL 20 MG TABLET PO SCH (08:44)
[2019-10-24 09:14] LABS: ALT/SGPT 11 U/l (0-40); AST/SGOT 22 U/l (0-37); Albumin 3.3 gm/dL (3.2-5.2); Albumin/Globulin Ratio 1.4 (1.0-2.3); Alkaline Phosphatase 41 U/L (39-117); Bilirubin,Direct 0.3 mg/dL (0.0-0.3); Blood Urea Nitrogen 8 mg/dl (8-23); Calcium 8.1 mg/dl (8.6-10.4); Carbon Dioxide 20 mmol/L (22-30); Chloride 87 mmol/L (96-108); Globulin 2.3 gm/dL (2.2-3.7); Glomerular Filtration Rate 100; Glucose 85 mg/dL (70-105); Lactate Dehydrogenase 201 U/L (94-250); Phosphorous 2.9 mg/dL (2.7-4.5); Triglycerides 107 mg/dl (<150); Uric Acid 4.6 mg/dL (2.5-8.0)
[2019-10-24] MEDS ORDERED: TAMSULOSIN 0.4 MG CAPSULE PO ONE (09:21)
[2019-10-24] MEDS: NICOTINE 21 MG PATCH TOPICAL SCH (09:26)
[2019-10-24 09:49] LABS: Basophils % (Manual) 1 % (0-2); Eosinophils % (Manual) 1 % (0-7); Lymphocytes % 18 % (15-49); Monocytes % (Manual) 7 % (1-12); Platelet Estimate NORMAL (NORMAL); RBC Morphology NORMAL (NORMAL); Segmented Neutrophils % 73 % (38-78)
--- NOTE | 2019-10-24 11:06 | Internal Med Progress Note ---
SUBJECTIVE Subjective Patient information: Note initiated : 10/24/19 at 11:04 am Service Date, if different from initiated Date: [] Patient: Pedrito Escudero a 74 y/o M admitted on 10/21/19 for R hip pain, Ground level fall. Chief Complaint: [] History of present illness: Mr. Escudero is a 74 year old M with a history of hypertension presents to the ER following a fall on his right hip. Patient was carrying a load on his pickup truck when the tailgate gave way and slammed his arm was in him to slip and fall on the ground. Patient was brought to the ER. Initial work-up was consistent with subtroc hanteric right hip fracture. Orthopedics was consulted and recommended follow- up on Friday for operative intervention. However due to significant pain patient request admission. 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 Case was discussed by ER physician with interventional radiology who recommended outpatient follow-up for evaluation and subsequently hospitalist service was consulted for pain management. Patient received his usual dose of medication including amlodipine lisinopril due to elevated blood pressure around 160s. At the time of my evaluation patient is alert and oriented. History as above. Denies lightheaded dizziness chest pain or palpitation or shortness of breath. Denies lower back pain but endorses to significant right hip and groin pain. 10/21-patient doing a lot better. However overnight remains in pain. On antihypertensives. Blood pressure around 150 this morning. Per Ortho recommendations patient can be weightbearing as tolerated. Physical therapy ongoing. White count 11.3. 10/22-patient continues to experience pain in very concerned about gait instability. Spouse at bedside. We will continue pain management/PT OT until patient undergoes surgery. Tolerating diet. No signs of alcohol withdrawal this morning. Lucid alert. On twice a day oral alcohol. Blood pressures at goal. No abdominal pain 10/23-patient doing well. Pain well controlled. Continuing home medications. Stable labs and hemodynamics. Sodium down to 120. Check urine and serum osmolarity. Continue salt tabs/free water restriction. 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 Every 4 sodium checks. Constitutional Vitals: Vital Signs Temp Pulse Resp BP Pulse Ox 98.4 F 91 H 18 105/72 97 10/24/19 03:15 10/24/19 08:00 10/24/19 08:00 10/24/19 08:00 10/24/19 08:00 Period Temp Pulse Resp BP Sys/Castro Pulse Ox Last 24 Hr 98.3 F-99.4 F 53-91 16-20 105-162/63-77 91-97 Intake and Output 10/23/19 10/24/19 10/24/19 21:59 05:59 13:59 Intake Total 800 1650 1200 Output Total 675 626 750 Balance 125 1024 450 Weight 82.735 kg Intake & Output: Intake & Output 10/23/19 10/24/19 10/24/19 21:59 05:59 13:59 Intake Total 800 1650 1200 Output Total 675 626 750 Balance 125 1024 450 Weight 82.735 kg Intake: IV 950 1000 Sodium Chloride 0.9% 1,000 ml @ 950 1000 100 mls/hr IV .Q10H [facility] Rx#: [id number] Oral 800 700 200 Output: Void Amount 675 625 750 # of times incontinent of urine 1 Other: Meal Breakfast Percent of Meal Consumed 50% Feeding Ability Independent Urine Appearance Clear Clear Clear Urine Color Bright Yellow Bright Yellow Dark Yellow Urine Odor Strong OBJ DATA Labs CBC & Chem 7: 10/24/19 05:35 10/24/19 05:35 Labs: Abnormal Lab Results 10/24/19 10/24/19 10/23/19 05:35 05:35 07:12 WBC RBC 3.13 L Hgb 10.6 L Hct 30.6 L MCH MCHC Lymph % (Auto) Gran # Dixon # (Auto) Lymphocytes % Sodium 120 L 122 L Chloride 87 L 89 L Carbon Dioxide 20 L BUN Creatinine 0.6 L Glucose Calcium 8.1 L 8.5 L Total Bilirubin GGT Total Protein 5.6 L 5.5 L Urine Protein 10/23/19 10/22/19 10/22/19 07:12 05:40 05:40 WBC 11.3 H RBC 3.31 L 4.07 L Hgb 11.3 L 13.6 L Hct 31.5 L 39.9 L MCH 34.1 H MCHC Lymph % (Auto) Gran # Dixon # (Auto) Lymphocytes % 12 L 10 L Sodium 128 L Chloride Carbon Dioxide 17 L BUN Creatinine Glucose 116 H Calcium 8.5 L Total Bilirubin 1.1 H GGT 65 H Total Protein 5.8 L Urine Protein 0810/21/19 10/21/19 17:05 15:40 15:40 WBC 12.6 H RBC 4.39 L Hgb Hct MCH 34.2 H MCHC 36.2 H Lymph % (Auto) 13.5 L Gran # 9.80 H Dixon # (Auto) 0.93 H Lymphocytes % Sodium 127 L Chloride 93 L Carbon Dioxide 21 L BUN 7 L Creatinine Glucose Calcium Total Bilirubin GGT Total Protein Urine Protein 30 A Meds: Medications Acetaminophen (Tylenol) 650 mg PO Q4-6HP PRN; Protocol PRN Reason: Per Pain Protocol/Fever > 101 Hydrocodone Bitart/Acetaminophen ([place] 5/325mg) 0 tab PO Q4HP PRN; Protocol PRN Reason: Per Pain Protocol Last Admin: 10/24/19 10:43 Dose: 2 tab Documented by: Amlodipine Besylate (Norvasc) 10 mg PO [facility] Last Admin: 10/23/19 20:33 Dose: 10 mg Documented by: Bisacodyl (Dulcolax) 10 mg [place] Q2-3DAYS PRN PRN Reason: Constipation Carvedilol (Coreg) 12.5 mg PO [facility] Last Admin: 10/24/19 08:44 Dose: 12.5 mg Documented by: Docusate Sodium (Colace) 100 mg PO BID [facility] Last Admin: 10/24/19 08:43 Dose: 100 mg Documented by: Heparin Sodium (Porcine) (Heparin) 5,000 unit SQ Q12 [facility] Last Admin: 10/24/19 08:43 Dose: 5,000 unit Documented by: Hydralazine HCl (Apresoline) 20 mg IV Q4-6HP PRN PRN Reason: hypertension over 150 Hydromorphone HCl (Dilaudid) 0 mg IV Q4HP PRN; Protocol PRN Reason: Per Pain Protocol Last Admin: 10/23/19 16:04 Dose: 0.25 mg Documented by: Acetaminophen (Ofirmev) 650 mg in 65 mls @ 130 mls/hr IV Q6HP PRN; Protocol PRN Reason: Per Pain Protocol/Fever > 101 Magnesium Sulfate (Magnesium Sulfate) 2 gm in 50 mls @ 50 mls/hr IV UD PRN PRN Reason: MG = or < 1.7 Sodium Chloride (Sodium Chloride 0.9%) 1,000 mls @ 50 mls/hr IV .Q20H [facility] Stop: 10/26/19 08:00 Last Admin: 10/24/19 09:08 Dose: 50 mls/hr Documented by: Lisinopril (Zestril) 20 mg PO DAILY [facility] Last Admin: 10/24/19 08:44 Dose: 20 mg Documented by: Lorazepam (Ativan) 1 mg IV Q2HP PRN; Protocol PRN Reason: Alcohol Withdrawal Last Admin: 10/23/19 18:04 Dose: 1 mg Documented by: Melatonin (Melatonin 3mg Tablet) 3 mg PO HSP PRN PRN Reason: Insomnia Last Admin: 10/23/19 20:33 Dose: 3 mg Documented by: Methocarbamol (Robaxin) 750 mg PO TIDP PRN PRN Reason: Muscle Spasm Last Admin: 10/23/19 14:31 Dose: 750 mg Documented by: Nicotine (Nicoderm) 21 mg TOPICAL DAILY@1000 [facility] Last Admin: 10/24/19 09:26 Dose: 21 mg Documented by: Ondansetron HCl (Zofran Odt) 4 mg SL Q4-6HP PRN; Protocol PRN Reason: Nausea And Vomiting Ondansetron HCl (Zofran) 4 mg IV Q4-6HP PRN; Protocol PRN Reason: Nausea And Vomiting Last Admin: 10/22/19 16:11 Dose: 4 mg Documented by: Polyethylene Glycol (Miralax) 17 gm PO DAILYP PRN PRN Reason: Constipation Potassium Chloride (Klor-Con) 40 meq PO DAILYP PRN PRN Reason: K+ < 3.5 Promethazine HCl (Phenergan) 6.25 mg IV Q4HP PRN PRN Reason: Nausea And Vomiting Last Admin: 10/24/19 01:19 Dose: 6.25 mg Documented by: Senna/Docusate Sodium (Senna Plus Tablet) 1 tab PO HS [facility] Last Admin: 10/23/19 20:33 Dose: 1 tab Documented by: Sodium Chloride (Saline Flush) 10 ml IV Q8 [facility] Last Admin: 10/24/19 06:06 Dose: Not Given Documented by: Tamsulosin HCl (Flomax) 0.4 mg PO [facility] A/P Narrative A/P Narrative: * Right hip fracture-managed by orthopedics. Continue pain management. Await operative intervention likely on Friday * Infrarenal abdominal type B uncomplicated aortic dissection. Interventional radiology consulted and recommends outpatient follow-up for evaluation for endograft repair. Size 3.5 cm without evidence of malperfusion. ( CT abdomen with contrast reveals 4.5 cm x 3.5 cm diameter infrarenal abdominal aortic dissection with complete thrombosis of false lumen. Suggested referral for interventional radiology for standard contrast abdominal aortogram and runoff to confirm the findings. Patient will likely eventually require surgical bypass graft in the lower extremity arterial vasculature) * Euvolemic hyponatremia-sodium 120. Check urine and serum osmolality. 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 Free water restriction/salt tabs * history of hypertension well-controlled on BRONSON inhibitor/beta-tri/calcium channel tri and as needed hydralazine. Target systolics less than 150 * Pain management well controlled on opioids * Full code * Prophylaxis heparin Plan * Continue pain management * Urine serum osmolarity, * Salt tabs/free water restriction * Likely surgical intervention in 24 hours * Continue DVT prophylaxis * Blood pressure control Time Spent With Patient Time: Total time spent is greater than 50% in coordination of care (as documented) at patient's floor/unit and/or counseling patient: QUALITY VTE Deep Vein Thrombosis/Pulmonary Embolism Present on Admission: No
[2019-10-24] MEDS: METHOCARBAMOL 750 MG TABLET PO PRN ×2 (13:39→21:21)
[2019-10-24] MEDS: SODIUM CHLORIDE 1 GM TABLET PO SCH ×2 (15:41→21:16)
[2019-10-24] MEDS: SENNOSIDES/DOCUSATE SODIUM 1 TAB TABLET PO SCH (21:16)
[2019-10-24] MEDS: amLODIPine 10 MG TABLET PO SCH (21:16)
[2019-10-24] MEDS: TAMSULOSIN 0.4 MG CAPSULE PO SCH (21:17)
[2019-10-24] MEDS: MELATONIN 3 MG TABLET PO PRN (21:21)
[2019-10-24] MEDS ORDERED: FUROSEMIDE 20 MG/2 ML VIAL IV ONE ×2 (21:49→22:06)
[2019-10-25] MEDS: HYDROcodone/APAP 5/325MG TABLET PO PRN (02:14)
[2019-10-25] MEDS: 0.9 % SODIUM CHLORIDE 10 ML SYRINGE IV SCH ×3 (04:25→22:05)
[2019-10-25 05:17] LABS: ALT/SGPT 11 U/l (0-40); AST/SGOT 21 U/l (0-37); Albumin/Globulin Ratio 1.4 (1.0-2.3); Alkaline Phosphatase 38 U/L (39-117); Bilirubin,Direct 0.3 mg/dL (0.0-0.3); Blood Urea Nitrogen 7 mg/dl (8-23); Calcium 7.8 mg/dl (8.6-10.4); Carbon Dioxide 19 mmol/L (22-30); Globulin 2.1 gm/dL (2.2-3.7); Glomerular Filtration Rate 100; Glucose 93 mg/dL (70-105); Hematocrit 27.6 % (40.1-51.0); Hemoglobin 9.9 g/dL (13.7-17.5); Lactate Dehydrogenase 175 U/L (94-250); Mean Cell Volume 96.5 fL (80.0-100.0); Mean Corpuscular HGB Conc 35.9 g/dL (31.0-36.0); Mean Platelet Volume 9.9 fL (7.4-10.4); Phosphorous 2.9 mg/dL (2.7-4.5); Platelet Count 144 K/mcL (140-440); RBC 2.86 M/mcL (4.63-6.08); Red Cell Distribution Width 11.5 % (11.5-14.5); Triglycerides 85 mg/dl (<150); Uric Acid 4.5 mg/dL (2.5-8.0); WBC 7.9 K/mcL (4.50-11.00)
[2019-10-25 05:18] LABS: Chloride 92 mmol/L (96-108)
[2019-10-25] MEDS: 0.9 % SODIUM CHLORIDE 1,000 ML IV SCH ×2 (05:55→21:49)
[2019-10-25 06:25] LABS: Eosinophils % (Manual) 1 % (0-7); Lymphocytes % 19 % (15-49); Monocytes % (Manual) 11 % (1-12); Platelet Estimate NORMAL (NORMAL); RBC Morphology NORMAL (NORMAL); Segmented Neutrophils % 69 % (38-78)
[2019-10-25] MEDS: HEPARIN 5,000 UNIT/ML VIAL SQ SCH (09:06)
[2019-10-25] MEDS: LISINOPRIL 20 MG TABLET PO SCH (09:06)
[2019-10-25] MEDS: CARVEDILOL 12.5 MG TABLET PO SCH (09:07)
[2019-10-25] MEDS: DOCUSATE SODIUM 100 MG CAPSULE PO SCH ×2 (09:07→21:53)
[2019-10-25] MEDS: SODIUM CHLORIDE 1 GM TABLET PO SCH ×3 (09:07→21:53)
--- NOTE | 2019-10-25 10:18 | Internal Med Progress Note ---
SUBJECTIVE Subjective Patient information: Note initiated : 10/25/19 at 10:13 am Service Date, if different from initiated Date: [] Patient: Pedrito Escudero a 74 y/o M admitted on 10/21/19 for R hip pain, Ground level fall. Chief Complaint: History of present illness: Mr. Escudero is a 74 year old M with a history of hypertension presents to the ER following a fall on his right hip. Patient was carrying a load on his pickup truck when the tailgate gave way and slammed his arm was in him to slip and fall on the ground. Patient was brought to the ER. Initial work-up was consistent with subtrocha nteric right hip fracture. Orthopedics was consulted and recommended follow-up on Friday for operative intervention. However due to significant pain patient request admission. 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 Case was discussed by ER physician with interventional radiology who recommended outpatient follow-up for evaluation and subsequently hospitalist service was consulted for pain management. Patient received his usual dose of medication including amlodipine lisinopril due to elevated blood pressure around 160s. At the time of my evaluation patient is alert and oriented. History as above. Denies lightheaded dizziness chest pain or palpitation or shortness of breath. Denies lower back pain but endorses to significant right hip and groin pain. 10/21-patient doing a lot better. However overnight remains in pain. On antihypertensives. Blood pressure around 150 this morning. Per Ortho recommendations patient can be weightbearing as tolerated. Physical therapy ongoing. White count 11.3. 10/22-patient continues to experience pain in very concerned about gait instability. Spouse at bedside. We will continue pain management/PT OT until patient undergoes surgery. Tolerating diet. No signs of alcohol withdrawal this morning. Lucid alert. On twice a day oral alcohol. Blood pressures at goal. No abdominal pain 10/23-patient doing well. Pain well controlled. Continuing home medications. Stable labs and hemodynamics. Sodium down to 120. Check urine and serum osmolarity. Continue salt tabs/free water restriction. 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 Every 4 sodium checks. 10/24-patient will undergo right hip surgical repair this afternoon. Sodium improved to 126 from a low of 117. Secondary to pain induced ADH release consis tent with a urine osmolality 349. Continue free water restriction/salt tabs. Will review postoperatively. Pain in good control. Constitutional Vitals: Vital Signs Temp Pulse Resp BP Pulse Ox 98.3 F 62 20 125/75 96 10/25/19 08:00 10/25/19 08:00 10/25/19 08:00 10/25/19 08:00 10/25/19 08:00 Period Temp Pulse Resp BP Sys/Castro Pulse Ox Last 24 Hr 98.2 F-98.8 F 50-86 18-20 88-142/58-75 90-97 Intake and Output 10/24/19 10/25/19 10/25/19 21:59 05:59 13:59 Intake Total 100 1300 Output Total 400 1150 125 Balance -300 150 -125 Weight 84.776 kg alert and oriented tenderness right hip on passive motion No anxiety Intake & Output: Intake & Output 10/24/19 10/25/19 10/25/19 21:59 05:59 13:59 Intake Total 100 1300 Output Total 400 1150 125 Balance -300 150 -125 Weight 84.776 kg Intake: IV 50 1000 Sodium Chloride 0.9% 1,000 ml @ 1000 50 mls/hr IV .Q20H [facility] Rx#: [id number] Oral 50 300 Output: Void Amount 400 1150 125 Other: Feeding Ability Independent Urine Appearance Clear Urine Color Dark Yellow Dark Yellow Urine Odor Normal Normal OBJ DATA Labs CBC & Chem 7: 10/25/19 04:15 10/25/19 08:09 Labs: Abnormal Lab Results 10/25/19 10/25/19 10/25/19 08:09 04:15 04:15 RBC 2.86 L Hgb 9.9 L Hct 27.6 L MCH 34.6 H Lymphocytes % Sodium 126 L 123 L Chloride 92 L Carbon Dioxide 19 L BUN 7 L Creatinine 0.6 L Osmolality Calcium 7.8 L Alkaline Phosphatase 38 L Total Protein 5.1 L Albumin 3.0 L Globulin 2.1 L 10/25/19 10/24/19 10/24/19 00:05 20:15 16:50 RBC Hgb Hct MCH Lymphocytes % Sodium 120 L 117 L* 122 L Chloride Carbon Dioxide BUN Creatinine Osmolality Calcium Alkaline Phosphatase Total Protein Albumin Globulin 10/24/19 10/24/19 10/24/19 12:00 12:00 05:35 RBC Hgb Hct MCH Lymphocytes % Sodium 120 L 120 L Chloride 87 L Carbon Dioxide 20 L BUN Creatinine 0.6 L Osmolality 253 L Calcium 8.1 L Alkaline Phosphatase Total Protein 5.6 L Albumin Globulin 10/24/19 10/23/19 10/23/19 05:35 07:12 07:12 RBC 3.13 L 3.31 L Hgb 10.6 L 11.3 L Hct 30.6 L 31.5 L MCH 34.1 H Lymphocytes % 12 L Sodium 122 L Chloride 89 L Carbon Dioxide BUN Creatinine Osmolality Calcium 8.5 L Alkaline Phosphatase Total Protein 5.5 L Albumin Globulin Meds: Medications Acetaminophen (Tylenol) 650 mg PO Q4-6HP PRN; Protocol PRN Reason: Per Pain Protocol/Fever > 101 Hydrocodone Bitart/Acetaminophen ([place] 5/325mg) 0 tab PO Q4HP PRN; Protocol PRN Reason: Per Pain Protocol Last Admin: 10/25/19 02:14 Dose: 2 tab Documented by: Amlodipine Besylate (Norvasc) 10 mg PO [facility] Last Admin: 10/24/19 21:16 Dose: 10 mg Documented by: Bisacodyl (Dulcolax) 10 mg [place] Q2-3DAYS PRN PRN Reason: Constipation Carvedilol (Coreg) 12.5 mg PO [facility] Last Admin: 10/25/19 09:07 Dose: 12.5 mg Documented by: Docusate Sodium (Colace) 100 mg PO BID [facility] Last Admin: 10/25/19 09:07 Dose: Not Given Documented by: Heparin Sodium (Porcine) (Heparin) 5,000 unit SQ Q12 [facility] Last Admin: 10/25/19 09:06 Dose: Not Given Documented by: Hydralazine HCl (Apresoline) 20 mg IV Q4-6HP PRN PRN Reason: hypertension over 150 Hydromorphone HCl (Dilaudid) 0 mg IV Q4HP PRN; Protocol PRN Reason: Per Pain Protocol Last Admin: 10/23/19 16:04 Dose: 0.25 mg Documented by: Acetaminophen (Ofirmev) 650 mg in 65 mls @ 130 mls/hr IV Q6HP PRN; Protocol PRN Reason: Per Pain Protocol/Fever > 101 Magnesium Sulfate (Magnesium Sulfate) 2 gm in 50 mls @ 50 mls/hr IV UD PRN PRN Reason: MG = or < 1.7 Last Infusion: 10/24/19 15:20 Dose: Infused Documented by: Lisinopril (Zestril) 20 mg PO DAILY [facility] Last Admin: 10/25/19 09:06 Dose: 20 mg Documented by: Lorazepam (Ativan) 1 mg IV Q2HP PRN; Protocol PRN Reason: Alcohol Withdrawal Last Admin: 10/23/19 18:04 Dose: 1 mg Documented by: Melatonin (Melatonin 3mg Tablet) 3 mg PO HSP PRN PRN Reason: Insomnia Last Admin: 10/24/19 21:21 Dose: 3 mg Documented by: Methocarbamol (Robaxin) 750 mg PO TIDP PRN PRN Reason: Muscle Spasm Last Admin: 10/24/19 21:21 Dose: 750 mg Documented by: Nicotine (Nicoderm) 21 mg TOPICAL DAILY@1000 [facility] Last Admin: 10/24/19 09:26 Dose: 21 mg Documented by: Ondansetron HCl (Zofran Odt) 4 mg SL Q4-6HP PRN; Protocol PRN Reason: Nausea And Vomiting Last Admin: 10/24/19 16:35 Dose: 4 mg Documented by: Ondansetron HCl (Zofran) 4 mg IV Q4-6HP PRN; Protocol PRN Reason: Nausea And Vomiting Last Admin: 10/22/19 16:11 Dose: 4 mg Documented by: Polyethylene Glycol (Miralax) 17 gm PO DAILYP PRN PRN Reason: Constipation Potassium Chloride (Klor-Con) 40 meq PO DAILYP PRN PRN Reason: K+ < 3.5 Promethazine HCl (Phenergan) 6.25 mg IV Q4HP PRN PRN Reason: Nausea And Vomiting Last Admin: 10/24/19 01:19 Dose: 6.25 mg Documented by: Senna/Docusate Sodium (Senna Plus Tablet) 1 tab PO [facility] Last Admin: 10/24/19 21:16 Dose: 1 tab Documented by: Sodium Chloride (Saline Flush) 10 ml IV Q8 [facility] Last Admin: 10/25/19 04:25 Dose: Not Given Documented by: Sodium Chloride (Sodium Chloride) 2 gm PO TID [facility] Last Admin: 10/25/19 09:07 Dose: 2 gm Documented by: Tamsulosin HCl (Flomax) 0.4 mg PO [facility] Last Admin: 10/24/19 21:17 Dose: 0.4 mg Documented by: A/P Narrative A/P Narrative: * Right hip fracture-will undergo operative intervention today. Review postop. * Preoperative risk evaluation-based on [employer] risk stratification patient is a high risk overall candidate for immediate postoperative and intraoperative morbidity/mortality/ACS/CVA based on surgery specific risk. Patient is aware of the risks of going to surgery. However surgery and anesthesia specific risks will be discussed by individual care provider. No modifiable risk factors at this time * Infrarenal abdominal type B uncomplicated aortic dissection. Interventional radiology consulted and recommends outpatient follow-up for evaluation for endograft repair. Size 3.5 cm without evidence of malperfusion. ( CT abdomen with contrast reveals 4.5 cm x 3.5 cm diameter infrarenal abdominal aortic dissection with complete thrombosis of false lumen. Suggested referral for interventional radiology for standard contrast abdominal aortogram and runoff to confirm the findings. Patient will likely eventually require surgical bypass graft in the lower extremity arterial vasculature) * Euvolemic hyponatremia-sodium 120. Check urine and serum osmolality. 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 Free water restriction/salt tabs * history of hypertension well-controlled on BRONSON inhibitor/beta-tri/calcium channel tri and as needed hydralazine. Target systolics less than 150 * Pain management well controlled on opioids * Full code * Prophylaxis heparin(held for surgery_ Plan * Review postop * Continue free water restriction/salt tabs * Sodium checks * Pain management * Outpatient interventional radiology follow-up referral for aortic dissection * Blood pressure management * Continue DVT prophylaxis postoperatively. Time Spent With Patient Time: Total time spent is greater than 50% in coordination of care (as documented) at patient's floor/unit and/or counseling patient: QUALITY VTE Deep Vein Thrombosis/Pulmonary Embolism Present on Admission: No
--- NOTE | 2019-10-25 13:58 | Internal Med Progress Note ---
SUBJECTIVE Subjective Patient information: Note initiated : 10/25/19 at 1:50 pm Service Date, if different from initiated Date: [] Patient: Pedrito Escudero a 74 y/o M admitted on 10/21/19 for R hip pain, Ground level fall. Chief Complaint: [] Interval history: History of present illness: Mr. Escudero is a 74 year old M with a history of hypertension presents to the ER following a fall on his right hip. Patient was carrying a load on his pickup truck when the tailgate gave way and slammed his arm was in him to slip and fall on the ground. Patient was brought to the ER. Initial work-up was consistent with subtrochanteric right hip fracture. Orthopedics was consulted and recommended follow-up on Friday for operative intervention. However due to significant pain patient request admission. 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 Case was discussed by ER physician with interventional radiology who recommended outpatient follow-up for evaluation and subsequently hospitalist service was consulted for pain management. Patient received his usual dose of medication including amlodipine lisinopril due to elevated blood pressure around 160s. At the time of my evaluation patient is alert and oriented. History as above. Denies lightheaded dizziness chest pain or palpitation or shortness of breath. Denies lower back pain but endorses to significant right hip and groin pain. 10/21-patient doing a lot better. However overnight remains in pain. On antihypertensives. Blood pressure around 150 this morning. Per Ortho recommendations patient can be weightbearing as tolerated. Physical therapy ongoing. White count 11.3. 10/22-patient continues to experience pain in very concerned about gait instabilit y. Spouse at bedside. We will continue pain management/PT OT until patient undergoes surgery. Tolerating diet. No signs of alcohol withdrawal this morning. Lucid alert. On twice a day oral alcohol. Blood pressures at goal. No abdominal pain 10/23-patient doing well. Pain well controlled. Continuing home medications. Stable labs and hemodynamics. Sodium down to 120. Check urine and serum osmolarity. Continue salt tabs/free water restriction. 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 Every 4 sodium checks. 10/24-patient will undergo right hip surgical repair this afternoon. Sodium improved to 126 from a low of 117. Secondary to pain induced ADH release consistent with a urine osmolality 349. Continue free water restriction/salt tabs. Will review postoperatively. Pain in good control. 10/25 Constitutional Vitals: Vital Signs Temp Pulse Resp BP Pulse Ox 99.4 F H 47 L 20 131/70 96 10/25/19 12:00 10/25/19 12:00 10/25/19 12:00 10/25/19 12:00 10/25/19 12:00 Period Temp Pulse Resp BP Sys/Castro Pulse Ox Last 24 Hr 98.2 F-99.4 F 47-86 - 88-142/58-75 90-97 Intake and Output 10/24/19 10/25/19 10/25/19 21:59 05:59 13:59 Intake Total 100 1300 Output Total 400 1150 125 Balance -300 150 -125 Weight 84.776 kg Intake & Output: Intake & Output 10/24/19 10/25/19 10/25/19 21:59 05:59 13:59 Intake Total 100 1300 Output Total 400 1150 125 Balance -300 150 -125 Weight 84.776 kg Intake: IV 50 1000 Sodium Chloride 0.9% 1,000 ml @ 1000 50 mls/hr IV .Q20H [facility] Rx#: [id number] Oral 50 300 Output: Void Amount 400 1150 125 Other: Feeding Ability Independent Urine Appearance Clear Urine Color Dark Yellow Dark Yellow Urine Odor Normal Normal Exam: General: Alert, Awake, No acute Distress Eyes/N/T: EOMI, Head/Neck: neck supple, CV: RRR, No murmurs, Pulm: Clear b/l, no wheezing/rhonchi/rales Abd: soft, nontender, +BS x4 Ext: no clubbing/cyanosis/edema, right hip in dressings Neuro: Alert, no focal deficits, moves all extremities, Skin: warm/dry OBJ DATA Labs CBC & Chem 7: 10/25/19 04:15 10/25/19 08:09 Labs: Abnormal Lab Results 10/25/19 10/25/19 10/25/19 08:09 04:15 04:15 RBC 2.86 L Hgb 9.9 L Hct 27.6 L MCH 34.6 H Lymphocytes % Sodium 126 L 123 L Chloride 92 L Carbon Dioxide 19 L BUN 7 L Creatinine 0.6 L Osmolality Calcium 7.8 L Alkaline Phosphatase 38 L Total Protein 5.1 L Albumin 3.0 L Globulin 2.1 L 10/25/19 10/24/19 10/24/19 00:05 20:15 16:50 RBC Hgb Hct MCH Lymphocytes % Sodium 120 L 117 L* 122 L Chloride Carbon Dioxide BUN Creatinine Osmolality Calcium Alkaline Phosphatase Total Protein Albumin Globulin 10/24/19 10/24/19 10/24/19 12:00 12:00 05:35 RBC Hgb Hct MCH Lymphocytes % Sodium 120 L 120 L Chloride 87 L Carbon Dioxide 20 L BUN Creatinine 0.6 L Osmolality 253 L Calcium 8.1 L Alkaline Phosphatase Total Protein 5.6 L Albumin Globulin 10/24/19 10/23/19 10/23/19 05:35 07:12 07:12 RBC 3.13 L 3.31 L Hgb 10.6 L 11.3 L Hct 30.6 L 31.5 L MCH 34.1 H Lymphocytes % 12 L Sodium 122 L Chloride 89 L Carbon Dioxide BUN Creatinine Osmolality Calcium 8.5 L Alkaline Phosphatase Total Protein 5.5 L Albumin Globulin Meds: Medications Acetaminophen (Tylenol) 650 mg PO Q4-6HP PRN; Protocol PRN Reason: Per Pain Protocol/Fever > 101 Hydrocodone Bitart/Acetaminophen ([place]co 5/325mg) 0 tab PO Q4HP PRN; Protocol PRN Reason: Per Pain Protocol Last Admin: 10/25/19 02:14 Dose: 2 tab Documented by: Amlodipine Besylate (Norvasc) [address] [facility] Last Admin: 10/24/19 21:16 Dose: 10 mg Documented by: Bisacodyl (Dulcolax) 10 mg [place] Q2-3DAYS PRN PRN Reason: Constipation [facility] ([facility]) [facility] Last Admin: 10/25/19 09:07 Dose: 12.5 mg Documented by: Docusate Sodium (Colace) 100 mg PO BID [facility] Last Admin: 10/25/19 09:07 Dose: Not Given Documented by: Heparin Sodium (Porcine) (Heparin) 5,000 unit SQ Q12 [facility] Last Admin: 10/25/19 09:06 Dose: Not Given Documented by: Hydralazine HCl (Apresoline) 20 mg IV Q4-6HP PRN PRN Reason: hypertension over 150 Hydromorphone HCl (Dilaudid) 0 mg IV Q4HP PRN; Protocol PRN Reason: Per Pain Protocol Last Admin: 10/23/19 16:04 Dose: 0.25 mg Documented by: Acetaminophen (Ofirmev) 650 mg in 65 mls @ 130 mls/hr IV Q6HP PRN; Protocol PRN Reason: Per Pain Protocol/Fever > 101 Magnesium Sulfate (Magnesium Sulfate) 2 gm in 50 mls @ 50 mls/hr IV UD PRN PRN Reason: MG = or < 1.7 Last Infusion: 10/24/19 15:20 Dose: Infused Documented by: Lisinopril (Zestril) 20 mg PO DAILY [facility] Last Admin: 10/25/19 09:06 Dose: 20 mg Documented by: Lorazepam (Ativan) 1 mg IV Q2HP PRN; Protocol PRN Reason: Alcohol Withdrawal Last Admin: 10/23/19 18:04 Dose: 1 mg Documented by: Melatonin (Melatonin 3mg Tablet) 3 mg PO HSP PRN PRN Reason: Insomnia Last Admin: 10/24/19 21:21 Dose: 3 mg Documented by: Methocarbamol (Robaxin) 750 mg PO TIDP PRN PRN Reason: Muscle Spasm Last Admin: 10/24/19 21:21 Dose: 750 mg Documented by: Nicotine (Nicoderm) 21 mg TOPICAL DAILY@1000 [facility] Last Admin: 10/24/19 09:26 Dose: 21 mg Documented by: Ondansetron HCl (Zofran Odt) 4 mg SL Q4-6HP PRN; Protocol PRN Reason: Nausea And Vomiting Last Admin: 10/24/19 16:35 Dose: 4 mg Documented by: Ondansetron HCl (Zofran) 4 mg IV Q4-6HP PRN; Protocol PRN Reason: Nausea And Vomiting Last Admin: 10/22/19 16:11 Dose: 4 mg Documented by: Polyethylene Glycol (Miralax) 17 gm PO DAILYP PRN PRN Reason: Constipation Potassium Chloride (Klor-Con) 40 meq PO DAILYP PRN PRN Reason: K+ < 3.5 Promethazine HCl (Phenergan) 6.25 mg IV Q4HP PRN PRN Reason: Nausea And Vomiting Last Admin: 10/24/19 01:19 Dose: 6.25 mg Documented by: Senna/Docusate Sodium (Senna Plus Tablet) 1 tab PO HS [facility] Last Admin: 10/24/19 21:16 Dose: 1 tab Documented by: Sodium Chloride (Saline Flush) 10 ml IV Q8 [facility] Last Admin: 10/25/19 04:25 Dose: Not Given Documented by: Sodium Chloride (Sodium Chloride) 2 gm PO TID [facility] Last Admin: 10/25/19 09:07 Dose: 2 gm Documented by: Tamsulosin HCl (Flomax) 0.4 mg PO HS [facility] Last Admin: 10/24/19 21:17 Dose: 0.4 mg Documented by: A/P Narrative A/P Narrative: A: *Right hip fracture: s/p ORIF (10/24) -Preoperative risk evaluation-based on RCRI [place] [employer] risk stratification patient is a high risk overall candidate for immediate postoperative and intraoperative morbidity/mortality/ACS/CVA based on surgery specific risk. -Patient is aware of the risks of going to surgery. However surgery and anesthesia specific risks will be discussed by individual care provider. No modifiable risk factors at this time *Infrarenal abdominal type B uncomplicated aortic dissection: IR consulted and recommends outpt f/u for evaluation for endograft repair. Size 3.5 cm without evidence of malperfusion. -CT abdomen with contrast reveals 4.5 cm x 3.5 cm diameter infrarenal abdominal aortic dissection with complete thrombosis of false lumen. 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 *HTN: cont home ACEI/BB/CCB as needed hydralazine. Target systolics less than 150 Plan: -Hip per Ortho -Continue free water restriction/salt tabs -Sodium checks -Pain management -Outpatient interventional radiology follow-up referral for aortic dissection -cont bp meds --ppx: heparin full code Time Spent With Patient Time: Total time spent is greater than 50% in coordination of care (as documented) at patient's floor/unit and/or counseling patient: QUALITY VTE Deep Vein Thrombosis/Pulmonary Embolism Present on Admission: No
[2019-10-25] MEDS ORDERED: 0.9 % SODIUM CHLORIDE 250 ML IV SCH ×2 (15:45→21:10)
[2019-10-25] MEDS ORDERED: ceFAZolin 2 GM in DEXTROSE 5% IN WATER 50 ML IV SCH ×2 (15:45→19:30)
[2019-10-25] MEDS ORDERED: KETAMINE 100 MG/ML ML IV ONE (16:33)
[2019-10-25] MEDS ORDERED: HETASTARCH 6% 500 ML BAG IV ONE (16:33)
[2019-10-25] MEDS ORDERED: ONDANSETRON 4 MG/2 ML VIAL IV ONE (16:33)
[2019-10-25] MEDS ORDERED: ePHEDrine 50 MG/ML AMPUL IV ONE (16:33)
[2019-10-25] MEDS ORDERED: PROPOFOL 200 MG/20 ML VIAL IV ONE (16:33)
[2019-10-25] MEDS ORDERED: LIDOCAINE HCL/PF 100 MG/5 ML SYRINGE IV ONE (16:33)
[2019-10-25] MEDS ORDERED: PHENYLEPHRINE 10 MG/ML VIAL IV ONE (16:33)
[2019-10-25] MEDS ORDERED: fentaNYL 250 MCG/5 ML VIAL IV ONE (16:33)
[2019-10-25] MEDS ORDERED: TRANEXAMIC ACID 1,000 MG/10 ML VIAL IV ONE (16:33)
[2019-10-25] MEDS ORDERED: HYDROmorphone 1 MG/ML SYRINGE IV ONE (16:33)
[2019-10-25] MEDS ORDERED: FUROSEMIDE 20 MG/2 ML VIAL IV ONE (16:33)
[2019-10-25] MEDS ORDERED: VANCOMYCIN 1 GM VIAL TOPICAL SCH (18:15)
[2019-10-25] MEDS ORDERED: diphenhydrAMINE 50 MG/ML VIAL IV PRN (18:53)
[2019-10-25] MEDS ORDERED: MEPERIDINE 25 MG/ML SYRINGE IV PRN (18:53)
[2019-10-25] MEDS ORDERED: NALOXONE HCL 0.4 MG/ML VIAL IV PRN (18:53)
[2019-10-25] MEDS ORDERED: ACETAMINOPHEN 1,000 MG/100 ML BOTTLE IV ONE ×2 (18:53→21:10)
[2019-10-25] MEDS ORDERED: ONDANSETRON 4 MG/2 ML VIAL IV PRN ×2 (18:53→21:10)
[2019-10-25] MEDS ORDERED: IPRATROPIUM/ALBUTEROL 3 ML AMPUL.NEB NEB PRN ×2 (18:53→20:48)
[2019-10-25] MEDS ORDERED: PROMETHAZINE 25 MG/ML VIAL IV PRN ×2 (18:53→21:10)
[2019-10-25] MEDS ORDERED: fentaNYL 100 MCG/2 ML VIAL IV PRN (18:53)
[2019-10-25] MEDS: NICOTINE 21 MG PATCH TOPICAL SCH (18:54)
--- NOTE | 2019-10-25 19:13 | Brief Operative Note ---
Brief Operative Note Date of procedure: 10/25/19 Pre-op diagnosis: right greater trochanteric periprosthesis fracture Post-op diagnosis: same Procedure: ORIF greater trochanteric perprosthetic fracture Grafts/Implants: Yes Anesthesia: GETA Findings: stable stem Complications: none Surgeon: Raji Gregorio Director Public Policy: Kalyan Fong Estimated blood loss (cc): 150 Tourniquet Time (Minutes): 0 Specimens Removed/Pathology: none sent Condition: stable Disposition: PACU
[2019-10-25] MEDS ORDERED: FLEETS ADULT ENEMA PR PRN ×2 (19:14→21:10)
[2019-10-25] MEDS ORDERED: BENZOCAINE/MENTHOL 1 LOZENGE PO PRN ×2 (19:14→21:10)
[2019-10-25] MEDS ORDERED: 0.9 % SODIUM CHLORIDE 1,000 ML IV SCH (19:15)
[2019-10-25] MEDS ORDERED: METHOCARBAMOL 1,000 MG/10 ML VIAL IV PRN (19:19)
[2019-10-25] MEDS ORDERED: oxyCODONE HCL 5 MG TABLET PO PRN (19:19)
[2019-10-25] MEDS ORDERED: fentaNYL 100 MCG/2 ML VIAL IV ONE ×2 (19:54→20:26)
[2019-10-25] MEDS ORDERED: IPRATROPIUM/ALBUTEROL 3 ML AMPUL.NEB NEB ONE (19:57)
[2019-10-25] MEDS ORDERED: SENNOSIDES 1 TABLET PO SCH (21:00)
[2019-10-25] MEDS ORDERED: MELATONIN 3 MG TABLET PO PRN (21:10)
[2019-10-25] MEDS ORDERED: LABETALOL 5 MG/ML ML IV PRN (21:10)
[2019-10-25] MEDS ORDERED: IOPAMIDOL 150 ML BOTTLE IV ONE (21:10)
[2019-10-25] MEDS ORDERED: ACETAMINOPHEN 650 MG/65 ML BOTTLE IV PRN (21:10)
[2019-10-25] MEDS ORDERED: MAGNESIUM SULFATE 2 GM/50 ML BAG IV PRN (21:10)
[2019-10-25] MEDS ORDERED: hydrALAZINE 20 MG/ML VIAL IV PRN (21:10)
[2019-10-25] MEDS ORDERED: POLYETHYLENE GLYCOL 3350 17 GM PACKET PO PRN (21:10)
[2019-10-25] MEDS ORDERED: ONDANSETRON 4 MG ODT TABLET SL PRN (21:10)
[2019-10-25] MEDS ORDERED: BISACODYL 10 MG SUPP.RECT PR PRN (21:10)
[2019-10-25] MEDS: TAMSULOSIN 0.4 MG CAPSULE PO SCH (21:53)
[2019-10-25] MEDS: SENNOSIDES/DOCUSATE SODIUM 1 TAB TABLET PO SCH (21:53)
[2019-10-25] MEDS: amLODIPine 10 MG TABLET PO SCH (21:53)
[2019-10-25] MEDS ORDERED: 0.9 % SODIUM CHLORIDE 10 ML SYRINGE IV SCH (22:00)
[2019-10-25] MEDS ORDERED: ACETAMINOPHEN 325 MG TABLET PO SCH (22:00)
[2019-10-25] MEDS ORDERED: ceFAZolin 1 GM VIAL IV SCH (22:00)
[2019-10-25] MEDS: ACETAMINOPHEN 325 MG TABLET PO SCH (22:04)
[2019-10-25] MEDS: ceFAZolin 1 GM VIAL IV SCH (22:05)
[2019-10-26] MEDS: oxyCODONE HCL 5 MG TABLET PO PRN ×5 (00:40→20:46)
[2019-10-26] MEDS: ACETAMINOPHEN 325 MG TABLET PO SCH (05:23)
[2019-10-26] MEDS: ceFAZolin 1 GM VIAL IV SCH (05:39)
[2019-10-26] MEDS: 0.9 % SODIUM CHLORIDE 10 ML SYRINGE IV SCH ×3 (05:42→22:25)
[2019-10-26 06:45] LABS: Hematocrit 27.4 % (40.1-51.0); Hemoglobin 9.8 g/dL (13.7-17.5); Mean Cell Volume 94.2 fL (80.0-100.0); Mean Corpuscular HGB Conc 35.8 g/dL (31.0-36.0); Mean Platelet Volume 9.9 fL (7.4-10.4); Platelet Count 160 K/mcL (140-440); RBC 2.91 M/mcL (4.63-6.08); Red Cell Distribution Width 12.5 % (11.5-14.5); WBC 9.8 K/mcL (4.50-11.00)
[2019-10-26 07:17] LABS: ALT/SGPT 11 U/l (0-40); AST/SGOT 27 U/l (0-37); Albumin/Globulin Ratio 1.5 (1.0-2.3); Alkaline Phosphatase 46 U/L (39-117); Bilirubin,Total 0.9 mg/dL (0.0-1.0); Blood Urea Nitrogen 8 mg/dl (8-23); Calcium 7.7 mg/dl (8.6-10.4); Carbon Dioxide 18 mmol/L (22-30); Glomerular Filtration Rate 100; Glucose 132 mg/dL (70-105); Lactate Dehydrogenase 205 U/L (94-250); Phosphorous 3.6 mg/dL (2.7-4.5); Triglycerides 55 mg/dl (<150); Uric Acid 5.3 mg/dL (2.5-8.0)
[2019-10-26 07:19] LABS: Bilirubin,Direct 0.4 mg/dL (0.0-0.3); Chloride 92 mmol/L (96-108)
--- NOTE | 2019-10-26 07:20 | Internal Med Progress Note ---
SUBJECTIVE Subjective Patient information: Note initiated : 10/26/19 at 7:15 am Service Date, if different from initiated Date: [] Patient: Pedrito Escudero a 74 y/o M admitted on 10/21/19 for R hip pain, Ground level fall. Chief Complaint: [] Interval history: History of present illness: Mr. Escudero is a 74 year old M with a history of hypertension presents to the ER following a fall on his right hip. Patient was carrying a load on his pickup truck when the tailgate gave way and slammed his arm was in him to slip and fall on the ground. Patient was brought to the ER. Initial work-up was consistent with subtrochanteric right hip fracture. Orthopedics was consulted and recommended follow-up on Friday for operative intervention. However due to significant pain patient request admission. 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 Case was discussed by ER physician with interventional radiology who recommended outpatient follow-up for evaluation and subsequently hospitalist service was consulted for pain management. Patient received his usual dose of medication including amlodipine lisinopril due to elevated blood pressure around 160s. At the time of my evaluation patient is alert and oriented. History as above. Denies lightheaded dizziness chest pain or palpitation or shortness of breath. Denies lower back pain but endorses to significant right hip and groin pain. 10/21-patient doing a lot better. However overnight remains in pain. On antihypertensives. Blood pressure around 150 this morning. Per Ortho recommendations patient can be weightbearing as tolerated. Physical therapy ongoing. White count 11.3. 10/22-patient continues to experience pain in very concerned about gait instabilit y. Spouse at bedside. We will continue pain management/PT OT until patient undergoes surgery. Tolerating diet. No signs of alcohol withdrawal this morning. Lucid alert. On twice a day oral alcohol. Blood pressures at goal. No abdominal pain 10/23-patient doing well. Pain well controlled. Continuing home medications. Stable labs and hemodynamics. Sodium down to 120. Check urine and serum osmolarity. Continue salt tabs/free water restriction. 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 Every 4 sodium checks. 10/24-patient will undergo right hip surgical repair this afternoon. Sodium improved to 126 from a low of 117. Secondary to pain induced ADH release consistent with a urine osmolality 349. Continue free water restriction/salt tabs. Will review postoperatively. Pain in good control. 10/25 Status post ORIF last evening and intraoperatively had episodes of mild hypotension and also was given blood transfusion. Slept well. No new complaints this morning has a little bit of cough she has had for a few days. Oxygenating better. Review of Systems: denies headache/fever/chills/nausea/vomiting/chest or abdominal pain/cough/dyspnea/diarrhea. Otherwise see above. Constitutional Vitals: Vital Signs Temp Pulse Resp BP Pulse Ox 98.5 F 42 L 21 145/68 97 10/26/19 00:04 10/26/19 06:02 10/26/19 07:01 10/26/19 07:01 10/26/19 07:01 Period Temp Pulse Resp BP Sys/Castro Pulse Ox Last 24 Hr 97.9 F-99.4 F 34-86 12-27 79-164/34-114 83-97 Intake and Output 10/25/19 10/26/19 10/26/19 21:59 05:59 13:59 Intake Total 3647 1240 Output Total 700 2900 Balance 2947 -1660 Weight 85.82 kg Intake & Output: Intake & Output 10/25/19 10/26/19 10/26/19 21:59 05:59 13:59 Intake Total 3647 1240 Output Total 700 2900 Balance 2947 -1660 Weight 85.82 kg Intake: IV 147 1000 Sodium Chloride 0.9% 1,000 ml @ 1000 50 mls/hr IV .Q20H [facility] Rx#: [id number] Ancef 2 gm In Dextrose 5% in 50 Water 50 ml @ 100 mls/hr IV PREOP [facility] Rx#:[id number] Oral 240 IV - Manual Only 3500 Output: Urine Catheter Amount 550 2900 Estimated Blood Loss 150 Other: Urine Appearance Clear Uretheral (Ballard) Clear Urine Color Dark Yellow Light Makayla Uretheral ([place]) Dark Yellow Exam: General: Alert, Awake, No acute Distress Eyes/N/T: EOMI, Head/Neck: neck supple, CV: reg with irregularity, No murmurs, Pulm: Clear b/l, no wheezing/rhonchi/rales Abd: soft, nontender, +BS x4 Ext: no clubbing/cyanosis/edema, right hip in dressings Neuro: Alert, no focal deficits, moves all extremities, Skin: warm/dry OBJ DATA Labs CBC & Chem 7: 10/26/19 04:02 10/26/19 04:02 Labs: Abnormal Lab Results 10/26/19 10/25/19 10/25/19 04:02 08:09 04:15 RBC 2.91 L Hgb 9.8 L Hct 27.4 L MCH Lymphocytes % Sodium 126 L 123 L Chloride 92 L Carbon Dioxide 19 L BUN 7 L Creatinine 0.6 L Osmolality Calcium 7.8 L Alkaline Phosphatase 38 L Total Protein 5.1 L Albumin 3.0 L Globulin 2.1 L 10/25/19 10/25/19 10/24/19 04:15 00:05 20:15 RBC 2.86 L Hgb 9.9 L Hct 27.6 L MCH 34.6 H Lymphocytes % Sodium 120 L 117 L* Chloride Carbon Dioxide BUN Creatinine Osmolality Calcium Alkaline Phosphatase Total Protein Albumin Globulin 10/24/19 10/24/19 10/24/19 16:50 12:00 12:00 RBC Hgb Hct MCH Lymphocytes % Sodium 122 L 120 L Chloride Carbon Dioxide BUN Creatinine Osmolality 253 L Calcium Alkaline Phosphatase Total Protein Albumin Globulin 10/24/19 10/24/19 10/23/19 05:35 05:35 07:12 RBC 3.13 L Hgb 10.6 L Hct 30.6 L MCH Lymphocytes % Sodium 120 L 122 L Chloride 87 L 89 L Carbon Dioxide 20 L BUN Creatinine 0.6 L Osmolality Calcium 8.1 L 8.5 L Alkaline Phosphatase Total Protein 5.6 L 5.5 L Albumin Globulin 10/23/19 07:12 RBC 3.31 L Hgb 11.3 L Hct 31.5 L MCH 34.1 H Lymphocytes % 12 L Sodium Chloride Carbon Dioxide BUN Creatinine Osmolality Calcium Alkaline Phosphatase Total Protein Albumin Globulin Meds: Medications Acetaminophen (Tylenol) 1,000 mg PO Q8 [facility]; Protocol Last Admin: 10/26/19 05:23 Dose: Not Given Documented by: Albuterol/Ipratropium (Duoneb) 3 ml NEB Q4HP PRN PRN Reason: Shortness Of Breath Apixaban (Eliquis) 2.5 mg PO BID [facility] Bisacodyl (Dulcolax) 10 mg [place] Q2-3DAYS PRN PRN Reason: Constipation [facility]vedil[facility] ([facility]g) [facility] Cefazolin Sodium (Ancef) 2 gm IV Q8H [facility] Stop: 10/26/19 08:00 Last Admin: 10/26/19 05:39 Dose: 2 gm Documented by: Docusate Sodium (Colace) 100 mg PO BID [facility] Hydralazine HCl (Apresoline) 20 mg IV Q4-6HP PRN PRN Reason: hypertension over 150 Hydromorphone HCl (Dilaudid) 0 mg IV Q4HP PRN; Protocol PRN Reason: Per Pain Protocol Sodium Chloride (Sodium Chloride 0.9%) 1,000 mls @ 75 mls/hr IV .[id number] [facility] Last Admin: 10/25/19 21:49 Dose: 75 mls/hr Documented by: Acetaminophen (Ofirmev) 650 mg in 65 mls @ 130 mls/hr IV Q6HP PRN; Protocol PRN Reason: Per Pain Protocol/Fever > 101 Magnesium Sulfate (Magnesium Sulfate) 2 gm in 50 mls @ 50 mls/hr IV UD PRN PRN Reason: MG = or < 1.7 Labetalol HCl (Trandate) 0 mg IV Q2HP PRN PRN Reason: Hypertension Lisinopril (Zestril) 20 mg PO DAILY [facility] Lorazepam (Ativan) 1 mg IV Q2HP PRN; Protocol PRN Reason: Alcohol Withdrawal Melatonin (Melatonin 3mg Tablet) 3 mg PO HSP PRN PRN Reason: Insomnia Methocarbamol (Robaxin) 750 mg PO TIDP PRN PRN Reason: Muscle Spasm Nicotine (Nicoderm) 21 mg TOPICAL DAILY@1000 [facility] Ondansetron HCl (Zofran Odt) 4 mg SL Q4-6HP PRN; Protocol PRN Reason: Nausea And Vomiting Ondansetron HCl (Zofran) 4 mg IV Q4-6HP PRN; Protocol PRN Reason: Nausea And Vomiting Oxycodone HCl (Roxicodone) 0 mg PO Q4HP PRN; Protocol PRN Reason: Per Pain Protocol Last Admin: 10/26/19 05:41 Dose: 5 mg Documented by: Polyethylene Glycol (Miralax) 17 gm PO DAILYP PRN PRN Reason: Constipation Potassium Chloride (Klor-Con) 40 meq PO DAILYP PRN PRN Reason: K+ < 3.5 Promethazine HCl (Phenergan) 6.25 mg IV Q4HP PRN PRN Reason: Nausea And Vomiting Senna (Senokot) 2 tab PO HS [facility] Sodium Biphosphate/Sodium Phosphate (Fleets Adult) 1 dose [place] Q3-4DAYS PRN PRN Reason: Constipation Sodium Chloride (Saline Flush) 10 ml IV Q8 [facility] Last Admin: 10/26/19 05:42 Dose: 10 ml Documented by: Sodium Chloride (Sodium Chloride) 2 gm PO TID [facility] Tamsulosin HCl (Flomax) 0.4 mg PO HS [facility] Throat Lozenges (Cepacol) 1 lozenge PO PRN PRN PRN Reason: Sore Throat A/P Narrative A/P Narrative: A: *Right hip fracture: s/p ORIF (10/24) -Preoperative risk evaluation-based on RCRI [place] [employer] risk stratification patient is a high risk overall candidate for immediate postoperative and intraoperative morbidity/mortality/ACS/CVA based on surgery specific risk. -Patient is aware of the risks of going to surgery. However surgery and anesthesia specific risks will be discussed by individual care provider. No modifiable risk factors at this time *Infrarenal abdominal type B uncomplicated aortic dissection: IR consulted and recommends outpt f/u for evaluation for endograft repair. Size 3.5 cm without evidence of malperfusion. -CT abdomen with contrast reveals 4.5 cm x 3.5 cm diameter infrarenal ab dominal aortic dissection with complete thrombosis of false lumen. 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 *HTN: cont home ACEI/BB/CCB as needed hydralazine. Target systolics less than 150 *?intraop aspiration vs fluid overload: left infiltrate, pt was left-lateral recumbant intraop -left infiltrate improved, Plan: -Hip per Ortho -Continue free water restriction/salt tabs -Sodium checks -Pain management -IS/Acapella, wean O2 -Outpatient interventional radiology follow-up referral for aortic dissection -cont bp meds -ppx: post-op ortho eliquis full code Time Spent With Patient Time: Total time spent is greater than 50% in coordination of care (as documented) at patient's floor/unit and/or counseling patient: QUALITY VTE Deep Vein Thrombosis/Pulmonary Embolism Present on Admission: No
[2019-10-26 07:36] LABS: Lymphocytes % 2 % (15-49); Monocytes % (Manual) 3 % (1-12); Platelet Estimate NORMAL (NORMAL); RBC Morphology NORMAL (NORMAL); Segmented Neutrophils % 95 % (38-78)
--- NOTE | 2019-10-26 08:02 | Operative Note ---
DATE OF OPERATION: 10/25/2019 PREOPERATIVE DIAGNOSIS: Right periprosthetic greater trochanteric femur fracture. POSTOPERATIVE DIAGNOSIS: Right periprosthetic greater trochanteric femur fracture. PROCEDURE PERFORMED: 1. Open reduction and internal fixation of right periprosthetic greater trochanteric femur fracture. 2. Exchange of the right femoral head. SURGEON: Raji Gregorio MD TELEPHONE LINES REPAIRER: Trang Fong MD. The second physician was needed as there was no qualified PA available to help throughout the case for safe and efficient completion of the case itself. The second physician helped with aid in reduction as well as hardware placement and general flow of the case. ANESTHESIA: General anesthesia. IV FLUIDS: 3 liters Hespan. IV ANTIBIOTICS: 2 grams Ancef. ESTIMATED BLOOD LOSS: 150 mL TOURNIQUET TIME: Not applicable. IMPLANTS: An 8-hole long [employer] periarticular greater trochanter hook plate; a ceramic head ball revision type. PATHOLOGY: None. INTRAOPERATIVE COMPLICATIONS: None. INDICATIONS: The patient is a 74-year-old male who sustained a fall onto his right hip, which resulted in fracture of his right greater trochanter which is surrounding his right hip prosthesis. He was brought to the Emergency Department for further evaluation and treatment. Upon presentation, I reviewed the injury with him along potential for the prosthetic and the femur to be loose with potential need for revision of this. Given the availability of implant as well as the surgeon availability, I elected to proceed with fracture fixation on a more elective basis. I discussed this with him, along with the risks and benefits of the surgery and expectations, and he wished to proceed in this fashion. OPERATIVE FINDINGS: After hip dislocation, the femoral head was removed. The stem was inspected and placed a femoral distractor with capturing.. The femoral stem was stable, thus did not require revision. Otherwise, there was a comminuted fracture of the greater trochanter which was reduced. DESCRIPTION OF PROCEDURE: The patient was taken to the preoperative holding area where site was verified and marked with the patient's input. He was taken back to the operating room where he underwent successful anesthesia. He was placed in the lateral decubitus position with the left side down. His left lower extremity was adequately padded with a gel pad and had a pubic symphysis pad as well as a bolster over the sacrum for positioning. His right lower extremity was then prepped and draped in the usual sterile fashion with ChloraPrep. Surgical timeout was performed to verify patient identity, correct procedure being performed, and correct extremity being operated on, and everybody was in agreement. I created the incision through the prior incision. Skin was sharply incised. Hemostasis was obtained down to the greater trochanter. At the center portion of this, the IT band distally as well as the tensor fascia kirk proximally was incised centrally. Proximally it was incised in line with the muscle fibers distally as with the IT band to expose the vastus lateralis distally. Proximally, the gluteus medius tendon were exposed. At this point, through the posterior approach, we created our capsulotomy to expose the prosthetic implant up to the acetabulum where the cup and ceramic head were visualized. Further exposure down to the lesser trochanter freeing the inferior capsule to allow for further exposure. At this point, the hip was disarticulated. The head ball was removed and the stem was inspected manually as well as with a backslap hammer that was attached to the stem. The stem did not move and was deemed stable. At this point, we placed the trial head back onto the femoral prosthesis. The joint was reduced. I did irrigate several times with IrriSept throughout the case as well. Once this was complete, the level of the fracture was exposed which was easily identified and the edges were sharply demarcated and freed. There was significant comminution laterally as well as posteriorly to the medial calcar region. There was a split posterior proximally that did allow for cortical read as well as anteriorly a large fragment that was able to provide a read for reduction. At this point, utilizing the templated plate sizers, we placed the plate and deemed that an 8 standard bend was the best implant device to fit the fracture. At this point, utilizing [id number] reduction clamps, the fracture was reduced in the best of reduction that we could obtain with the comminuted fragments all in place. The spikes were then impaled into the greater trochanter with making splits and gluteus medius tendon. Once these were impacted along with the handle, we placed three cerclage wires, one at the proximal portion of the greater trochanter, two distal to the fracture and subsequently one just at the base of the fracture around the anterior large spike which allows for read of the reduction. I initially tightened the most proximal one to gain fixation of the proximal fragment and then holding this in the reduced alignment with the [id number] clamps along with the handle attached to the plate tightened the cable around the inferior portion of the fracture itself to bring the anterior cortex down to the main shaft portion of the fracture. Subsequently, this lifted the plate off lateral cortex distally. The two cerclage wires here were then sequentially tightened. We placed one additional cable between the two proximal cables and one at the most distal aspect of the cable for three points of fixation distally and three proximally along with the hooks of the prongs in the greater trochanter. The fractures again appeared to be in good rotational alignment. However, comminution allowed for some defects along the lateral cortex. The wound was then copiously irrigated. The hip was disarticulated again. The trial femoral head was removed. We copiously irrigated the wound again, dried the trunnion of the stem and impacted the revision ceramic head of the same size into place. The joint was then reduced again and taken through a range of motion, was stable in 33 sideline position as well as stable to approximately 80 degrees of hip flexion with internal rotation of 40 degrees. At this point, all cables were again tested and retensioned and cut short. The capsule was closed with 0 Ethibond suture for a total of four, and again was stable. Overall leg length was not changed. We placed 1 gram of vancomycin powder deep in the wound. The IT band and the tensor fascia kirk was closed with Stratafix in running fashion, the subcutaneous tissue with 0 Vicryl, deep fat layer with 2-0 Vicryl, subcutaneous with 3-0 Vicryl and skin closed with oli. We placed a silver dressing along with abduction pillow. The patient awoke from anesthesia and was transferred to PACU in stable condition. POSTOPERATIVE PLAN: The patient will be 50% weightbearing with a walker for the next three to four weeks and then transitioned to full weightbearing as tolerated. He will be admitted back to the floor for postoperative recovery. DLChandrakant:can Job ID: [id number] Doc ID: [id number] Raji JACKSON
[2019-10-26] MEDS: HYDROmorphone 0.5 MG/0.5 ML SYRINGE IV PRN ×2 (08:14→14:30)
--- NOTE | 2019-10-26 09:20 | XRay Report ---
HISTORY: Postop open reduction internal fixation of fractured right greater trochanter FINDINGS: Patient has a well-positioned right total hip prosthesis. There is an obliquely oriented fracture through the bases greater trochanter. This is held in good alignment using a metal plate and cerclage wires secured to the lateral border of the shaft of the femur. No other fracture is present. 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 Severe atherosclerotic disease is present in the pelvis and upper thighs. IMPRESSION: Good alignment following surgical fixation of the fractured right greater trochanter Interpreted and Authenticated by: Wilder Gomes 10/26/19
--- NOTE | 2019-10-26 09:24 | XRay Report ---
HISTORY: Fluid overload, status post preceding right hip surgery. FINDINGS: There are large diffuse alveolar opacities throughout the left lung with milder involvement throughout the right lung. Lung volumes are normal. The heart is moderately enlarged. No pleural effusion is present. No fracture is seen. There are postoperative changes following prior fusion in the lower neck. Comparison with the prior exam done on 10/21/19 shows the alveolar opacities are new and the heart has increased in size. IMPRESSION: Congestive heart failure with asymmetric pulmonary edema Interpreted and Authenticated by: Wilder Gomes 10/26/19
[2019-10-26] MEDS ORDERED: FUROSEMIDE 20 MG/2 ML VIAL IV ONE (09:29)
[2019-10-26] MEDS ORDERED: ALBUMIN HUMAN 12.5 GM/50 ML BAG IV ONE (09:29)
[2019-10-26] MEDS ORDERED: APIXABAN 5 MG TABLET PO SCH (10:00)
[2019-10-26] MEDS: LISINOPRIL 20 MG TABLET PO SCH (11:06)
[2019-10-26] MEDS: CARVEDILOL 12.5 MG TABLET PO SCH (11:07)
[2019-10-26] MEDS: POTASSIUM CHLORIDE 20 MEQ PACKET PO PRN (11:07)
[2019-10-26] MEDS: DOCUSATE SODIUM 100 MG CAPSULE PO SCH ×2 (11:07→20:47)
[2019-10-26] MEDS: APIXABAN 5 MG TABLET PO SCH ×2 (11:08→20:45)
[2019-10-26] MEDS: SODIUM CHLORIDE 1 GM TABLET PO SCH ×3 (11:18→22:25)
[2019-10-26] MEDS: METHOCARBAMOL 750 MG TABLET PO PRN ×2 (12:38→20:45)
[2019-10-26] MEDS: NICOTINE 21 MG PATCH TOPICAL SCH (12:54)
[2019-10-26] MEDS: 0.9 % SODIUM CHLORIDE 1,000 ML IV SCH (13:08)
--- NOTE | 2019-10-26 13:42 | XRay Report ---
HISTORY: Follow-up pulmonary infiltrate which may be atelectasis or aspiration FINDINGS: There are mild generalized infiltrates throughout the left lung and mildly prominent increased interstitial lung markings throughout the right lung. There has been significant improvement, especially in the left side since the prior study done on 10/25/19. The heart remains moderately enlarged. There is no pleural effusion. IMPRESSION: improving bilateral infiltrates. The rapid improvement is more consistent with that of fluid overload rather than aspiration pneumonia. Interpreted and Authenticated by: Wilder Gomes 10/26/19
[2019-10-26 14:20] LABS: POC Blood Urea Nitrogen 9 mg/dl (8-23); POC CO2 19 mmol/L (22-30); POC Calcium, Ionized 1.11 mmol/L (1.16-1.32); POC Chloride 94 mmol/L (96-108); POC Creatinine 0.5 mg/dl (0.7-1.2); POC Glucose, Random 117 mg/dL (70-105); POC Potassium 3.7 mmol/L (3.3-5.1); POC Sodium 127 mmol/L (133-145)
[2019-10-26] MEDS: ACETAMINOPHEN 500 MG TABLET PO SCH ×2 (14:21→22:26)
--- NOTE | 2019-10-26 14:32 | Orthopedic Progress Note ---
SUBJECTIVE Subjective Patient information: Note initiated : 10/26/19 at 2:25 pm Service Date, if different from initiated Date: [] Patient: Pedrito Escudero 74 y/o M admitted on 10/21/19 for R hip pain, Ground level fall. He is POD#1 s/p ORIF right hip fracture. Admits to pain in the right hip though states the pain medications are working and his pain is managed. Admits to SOB, denies difficulty breathing, CP, N/V, abd pain, fevers/chills. Chief Complaint: right hip pain Constitutional Vitals: Vital Signs Temp Pulse Resp BP Pulse Ox 98.4 F 92 H 21 160/78 93 10/26/19 12:05 10/26/19 14:01 10/26/19 14:01 10/26/19 14:01 10/26/19 14:01 Period Temp Pulse Resp BP Sys/Castro Pulse Ox Last 24 Hr 97.6 F-98.5 F 34-92 12-27 79-164/34-114 83-98 Intake and Output 10/26/19 10/26/19 10/26/19 05:59 13:59 21:59 Intake Total 1240 50 50 Output Total 2900 525 Balance -1660 -475 50 Intake & Output: Intake & Output 10/26/19 10/26/19 10/26/19 05:59 13:59 21:59 Intake Total 1240 50 50 Output Total 2900 525 Balance -1660 -475 50 Intake: IV 1000 50 50 Sodium Chloride 0.9% 1,000 ml @ 1000 50 mls/hr IV .Q20H [facility] Rx#: [id number] Oral 240 Output: Urine Catheter Amount 2900 525 Other: Urine Appearance Clear Urine Color Light Makayla Light Makayla Blood Tinged Additional findings Additional findings: General: Alert, oriented, interactive and appropriate. In no acute distress. Right hip: mepolex silver dressing as well as medipore in place. It is clean and dry. ROM: Therapy working with patient on transfer upon exam. Able to lift the right leg and stand from seated position with one assist. Full ROM foot/ankles. Sensation is intact throughout Right lower extremity. Foot warm and well perfuse d. No pain with passive calf stretch bilaterally. OBJ DATA Labs CBC & Chem 7: 10/26/19 04:02 10/26/19 04:02 Labs: Abnormal Lab Results 10/26/19 10/26/19 10/26/19 14:13 04:02 04:02 RBC Hgb Hct POC Hct 28.0 L MCH Seg Neutrophils % Lymphocytes % POC Sodium 127 L Sodium 125 L POC Chloride 94 L Chloride 92 L Carbon Dioxide 18 L POC Total CO2 19 L BUN Creatinine 0.6 L POC Creatinine 0.5 L Glucose 132 H POC Glucose 117 H Osmolality 264 L Calcium 7.7 L POC WB Ioniz Calcium 1.11 L Magnesium 1.5 L Direct Bilirubin 0.4 H Alkaline Phosphatase Total Protein 5.0 L Albumin 3.0 L Globulin 2.0 L 10/26/19 10/25/19 10/25/19 04:02 08:09 04:15 RBC 2.91 L Hgb 9.8 L Hct 27.4 L POC Hct MCH Seg Neutrophils % 95 H Lymphocytes % 2 L POC Sodium Sodium 126 L 123 L POC Chloride Chloride 92 L Carbon Dioxide 19 L POC Total CO2 BUN 7 L Creatinine 0.6 L POC Creatinine Glucose POC Glucose Osmolality Calcium 7.8 L POC WB Ioniz Calcium Magnesium Direct Bilirubin Alkaline Phosphatase 38 L Total Protein 5.1 L Albumin 3.0 L Globulin 2.1 L 10/25/19 10/25/19 10/24/19 04:15 00:05 20:15 RBC 2.86 L Hgb 9.9 L Hct 27.6 L POC Hct MCH 34.6 H Seg Neutrophils % Lymphocytes % POC Sodium Sodium 120 L 117 L* POC Chloride Chloride Carbon Dioxide POC Total CO2 BUN Creatinine POC Creatinine Glucose POC Glucose Osmolality Calcium POC WB Ioniz Calcium Magnesium Direct Bilirubin Alkaline Phosphatase Total Protein Albumin Globulin 10/24/19 10/24/19 10/24/19 16:50 12:00 12:00 RBC Hgb Hct POC Hct MCH Seg Neutrophils % Lymphocytes % POC Sodium Sodium 122 L 120 L POC Chloride Chloride Carbon Dioxide POC Total CO2 BUN Creatinine POC Creatinine Glucose POC Glucose Osmolality 253 L Calcium POC WB Ioniz Calcium Magnesium Direct Bilirubin Alkaline Phosphatase Total Protein Albumin Globulin 10/24/19 10/24/19 05:35 05:35 RBC 3.13 L Hgb 10.6 L Hct 30.6 L POC Hct MCH Seg Neutrophils % Lymphocytes % POC Sodium Sodium 120 L POC Chloride Chloride 87 L Carbon Dioxide 20 L POC Total CO2 BUN Creatinine 0.6 L POC Creatinine Glucose POC Glucose Osmolality Calcium 8.1 L POC WB Ioniz Calcium Magnesium Direct Bilirubin Alkaline Phosphatase Total Protein 5.6 L Albumin Globulin Meds: Medications Acetaminophen (Tylenol) 1,000 mg PO Q8 [facility]; Protocol Last Admin: 10/26/19 14:21 Dose: 1,000 mg Documented by: Albuterol/Ipratropium (Duoneb) 3 ml NEB Q4HP PRN PRN Reason: Shortness Of Breath Apixaban (Eliquis) 2.5 mg PO BID [facility] Last Admin: 10/26/19 11:08 Dose: 2.5 mg Documented by: Bisacodyl (Dulcolax) 10 mg DE Q2-3DAYS PRN PRN Reason: Constipation Carvedilol (Coreg) 12.5 mg PO [facility] Last Admin: 10/26/19 11:07 Dose: 12.5 mg Documented by: Docusate Sodium (Colace) 100 mg PO BID [facility] Last Admin: 10/26/19 11:07 Dose: 100 mg Documented by: Hydralazine HCl (Apresoline) 20 mg IV Q4-6HP PRN PRN Reason: hypertension over 150 Last Admin: 10/26/19 14:20 Dose: 20 mg Documented by: Hydromorphone HCl (Dilaudid) 0 mg IV Q4HP PRN; Protocol PRN Reason: Per Pain Protocol Last Admin: 10/26/19 08:14 Dose: 0.5 mg Documented by: Acetaminophen (Ofirmev) 650 mg in 65 mls @ 130 mls/hr IV Q6HP PRN; Protocol PRN Reason: Per Pain Protocol/Fever > 101 Magnesium Sulfate (Magnesium Sulfate) 2 gm in 50 mls @ 50 mls/hr IV UD PRN PRN Reason: MG = or < 1.7 Last Infusion: 10/26/19 14:10 Dose: Infused Documented by: Labetalol HCl (Trandate) 0 mg IV Q2HP PRN PRN Reason: Hypertension Lisinopril (Zestril) 20 mg PO DAILY [facility] Last Admin: 10/26/19 11:06 Dose: 20 mg Documented by: Lorazepam (Ativan) 1 mg IV Q2HP PRN; Protocol PRN Reason: Alcohol Withdrawal Melatonin (Melatonin 3mg Tablet) 3 mg PO HSP PRN PRN Reason: Insomnia Methocarbamol (Robaxin) 750 mg PO TIDP PRN PRN Reason: Muscle Spasm Last Admin: 10/26/19 12:38 Dose: 750 mg Documented by: Nicotine (Nicoderm) 21 mg TOPICAL DAILY@1000 SELMA Last Admin: 10/26/19 12:54 Dose: Not Given Documented by: Ondansetron HCl (Zofran Odt) 4 mg SL Q4-6HP PRN; Protocol PRN Reason: Nausea And Vomiting Ondansetron HCl (Zofran) 4 mg IV Q4-6HP PRN; Protocol PRN Reason: Nausea And Vomiting Oxycodone HCl (Roxicodone) 0 mg PO Q4HP PRN; Protocol PRN Reason: Per Pain Protocol Last Admin: 10/26/19 11:39 Dose: 10 mg Documented by: Polyethylene Glycol (Miralax) 17 gm PO DAILYP PRN PRN Reason: Constipation Potassium Chloride (Klor-Con) 40 meq PO DAILYP PRN PRN Reason: K+ < 3.5 Last Admin: 10/26/19 11:07 Dose: 40 meq Documented by: Promethazine HCl (Phenergan) 6.25 mg IV Q4HP PRN PRN Reason: Nausea And Vomiting Senna (Senokot) 2 tab PO HS [facility] Sodium Biphosphate/Sodium Phosphate (Fleets Adult) 1 dose DE Q3-4DAYS PRN PRN Reason: Constipation Sodium Chloride (Saline Flush) 10 ml IV Q8 [facility] Last Admin: 10/26/19 14:22 Dose: 10 ml Documented by: Sodium Chloride (Sodium Chloride) 2 gm PO TID [facility] Last Admin: 10/26/19 11:18 Dose: 2 gm Documented by: Tamsulosin HCl (Flomax) 0.4 mg PO HS [facility] Throat Lozenges (Cepacol) 1 lozenge PO PRN PRN PRN Reason: Sore Throat A/P Assessment and plan (1) Closed fracture of proximal end of femur: Assessment and plan: Pt is a 74 yo male POD#1 s/p ORIF of right hip fracture with Dr. Gregorio. Pt was hypotensive received blood transfusion postoperatively. Vitals stable. --PT/OT: 50% WB with Right lower extremity. --continue pain medications --OK to change dressing if >75% saturated. --continue diet --prophy: Eliquis--began this AM, IS, SCDs. --dispo: will likely need skilled rehab. Status: Acute Time Spent With Patient Time: Total time spent is greater than 50% in coordination of care (as documented) at patient's floor/unit and/or counseling patient:
[2019-10-26] MEDS: LORazepam 2 MG/ML VIAL IV PRN ×2 (17:58→22:36)
[2019-10-26 20:23] LABS: Sodium, Urine Random 53 mmol/L
[2019-10-26 20:24] LABS: Osmolality,Urine 421 mOsm/kg (80-1000)
[2019-10-26] MEDS: SENNOSIDES 1 TABLET PO SCH (20:45)
[2019-10-26] MEDS: TAMSULOSIN 0.4 MG CAPSULE PO SCH (20:46)
[2019-10-26] MEDS ORDERED: SENNOSIDES/DOCUSATE SODIUM 1 TAB TABLET PO SCH (21:00)
[2019-10-27] MEDS: LORazepam 2 MG/ML VIAL IV PRN (02:47)
[2019-10-27] MEDS: ACETAMINOPHEN 500 MG TABLET PO SCH ×3 (05:43→22:01)
[2019-10-27] MEDS: 0.9 % SODIUM CHLORIDE 10 ML SYRINGE IV SCH ×3 (05:43→20:18)
[2019-10-27] MEDS ORDERED: OLANZapine 5 MG TABLET PO ONE (07:20)
--- NOTE | 2019-10-27 07:22 | Internal Med Progress Note ---
SUBJECTIVE Subjective Patient information: Note initiated : 10/27/19 at 7:15 am Service Date, if different from initiated Date: [] Patient: Pedrito Escudero a 74 y/o M admitted on 10/21/19 for R hip pain, Ground level fall. Chief Complaint: [] Interval history: History of present illness: Mr. Escudero is a 74 year old M with a history of hypertension presents to the ER following a fall on his right hip. Patient was carrying a load on his pickup truck when the tailgate gave way and slammed his arm was in him to slip and fall on the ground. Patient was brought to the ER. Initial work-up was consistent with subtrochanteric right hip fracture. Orthopedics was consulted and recommended follow-up on Friday for operative intervention. However due to significant pain patient request admission. 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 Case was discussed by ER physician with interventional radiology who recommended outpatient follow-up for evaluation and subsequently hospitalist service was consulted for pain management. Patient received his usual dose of medication including amlodipine lisinopril due to elevated blood pressure around 160s. At the time of my evaluation patient is alert and oriented. History as above. Denies lightheaded dizziness chest pain or palpitation or shortness of breath. Denies lower back pain but endorses to significant right hip and groin pain. 10/21-patient doing a lot better. However overnight remains in pain. On antihypertensives. Blood pressure around 150 this morning. Per Ortho recommendations patient can be weightbearing as tolerated. Physical therapy ongoing. White count 11.3. 10/22-patient continues to experience pain in very concerned about gait instabilit y. Spouse at bedside. We will continue pain management/PT OT until patient undergoes surgery. Tolerating diet. No signs of alcohol withdrawal this morning. Lucid alert. On twice a day oral alcohol. Blood pressures at goal. No abdominal pain 10/23-patient doing well. Pain well controlled. Continuing home medications. Stable labs and hemodynamics. Sodium down to 120. Check urine and serum osmolarity. Continue salt tabs/free water restriction. 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 Every 4 sodium checks. 10/24-patient will undergo right hip surgical repair this afternoon. Sodium improved to 126 from a low of 117. Secondary to pain induced ADH release consistent with a urine osmolality 349. Continue free water restriction/salt tabs. Will review postoperatively. Pain in good control. 10/25 Status post ORIF last evening and intraoperatively had episodes of mild hypotension and also was given blood transfusion. Slept well. No new complaints this morning has a little bit of cough she has had for a few days. Oxygenating better. 10/26 Confusion last night. Increase oxygen need earlier this morning. Chest x-ray pulmonary edema. Lasix ordered. Patient on oxygen mask 10 L, as needed BiPAP. For bedside. Patient able answer questions appropriately. Review of Systems: denies headache/fever/chills/nausea/vomiting/chest or abdominal pain/cough/dyspnea/diarrhea. Otherwise see above. Constitutional Vitals: Vital Signs Temp Pulse Resp BP Pulse Ox 98.4 F 86 19 120/67 86 L 10/27/19 04:00 10/27/19 06:04 10/27/19 06:04 10/27/19 06:03 10/27/19 06:04 Period Temp Pulse Resp BP Sys/Castro Pulse Ox Last 24 Hr 97.5 F-98.7 F 37-92 14-25 102-162/60-124 86-98 Intake and Output 10/26/19 10/27/19 10/27/19 21:59 05:59 13:59 Intake Total 200 Output Total 975 250 Balance -775 -250 Weight 86.273 kg Intake & Output: Intake & Output 10/26/19 10/27/19 10/27/19 21:59 05:59 13:59 Intake Total 200 Output Total 975 250 Balance -775 -250 Weight 86.273 kg Intake: IV 50 Oral 150 Output: Urine Catheter Amount 425 Void Amount 550 250 Other: Urine Appearance Clear Uretheral (Ballard) Hematuria Urine Color Blood Tinged Uretheral (Ballard) Blood Tinged Urine Odor Normal # Voids 1 Exam: General: Alert, Awake, No acute Distress Eyes/N/T: EOMI, Head/Neck: neck supple, CV: reg with irregularity, No murmurs, Pulm: b/l rhonchi and mile rales, no wheezing, mildly tachypneic Abd: soft, nontender, +BS x4 Ext: no clubbing/cyanosis/edema, right hip in dressings Neuro: Alert, no focal deficits, moves all extremities, Skin: warm/dry OBJ DATA Labs CBC & Chem 7: 08/11/20 04:02 10/27/19 04:02 Labs: Abnormal Lab Results 10/26/19 10/26/19 10/26/19 14:13 14:13 04:02 RBC Hgb Hct POC Hct 28.0 L MCH Seg Neutrophils % Lymphocytes % POC Sodium 127 L Sodium POC Chloride 94 L Chloride Carbon Dioxide POC Total CO2 19 L BUN Creatinine POC Creatinine 0.5 L Glucose POC Glucose 117 H Osmolality Calcium POC WB Ioniz Calcium 1.11 L Magnesium Direct Bilirubin Alkaline Phosphatase Total Protein Albumin Globulin TSH 0.25 L Cortisol AM Sample 3.9 L 10/26/19 10/26/19 10/26/19 04:02 04:02 04:02 RBC 2.91 L Hgb 9.8 L Hct 27.4 L POC Hct MCH Seg Neutrophils % 95 H Lymphocytes % 2 L POC Sodium Sodium 125 L POC Chloride Chloride 92 L Carbon Dioxide 18 L POC Total CO2 BUN Creatinine 0.6 L POC Creatinine Glucose 132 H POC Glucose Osmolality 264 L Calcium 7.7 L POC WB Ioniz Calcium Magnesium 1.5 L Direct Bilirubin 0.4 H Alkaline Phosphatase Total Protein 5.0 L Albumin 3.0 L Globulin 2.0 L TSH Cortisol AM Sample 10/25/19 10/25/19 10/25/19 08:09 04:15 04:15 RBC 2.86 L Hgb 9.9 L Hct 27.6 L POC Hct MCH 34.6 H Seg Neutrophils % Lymphocytes % POC Sodium Sodium 126 L 123 L POC Chloride Chloride 92 L Carbon Dioxide 19 L POC Total CO2 BUN 7 L Creatinine 0.6 L POC Creatinine Glucose POC Glucose Osmolality Calcium 7.8 L POC WB Ioniz Calcium Magnesium Direct Bilirubin Alkaline Phosphatase 38 L Total Protein 5.1 L Albumin 3.0 L Globulin 2.1 L TSH Cortisol AM Sample 10/25/19 10/24/19 10/24/19 00:05 20:15 16:50 RBC Hgb Hct POC Hct MCH Seg Neutrophils % Lymphocytes % POC Sodium Sodium 120 L 117 L* 122 L POC Chloride Chloride Carbon Dioxide POC Total CO2 BUN Creatinine POC Creatinine Glucose POC Glucose Osmolality Calcium POC WB Ioniz Calcium Magnesium Direct Bilirubin Alkaline Phosphatase Total Protein Albumin Globulin TSH Cortisol AM Sample 10/24/19 10/24/19 10/24/19 12:00 12:00 05:35 RBC Hgb Hct POC Hct MCH Seg Neutrophils % Lymphocytes % POC Sodium Sodium 120 L 120 L POC Chloride Chloride 87 L Carbon Dioxide 20 L POC Total CO2 BUN Creatinine 0.6 L POC Creatinine Glucose POC Glucose Osmolality 253 L Calcium 8.1 L POC WB Ioniz Calcium Magnesium Direct Bilirubin Alkaline Phosphatase Total Protein 5.6 L Albumin Globulin TSH Cortisol AM Sample 10/24/19 05:35 RBC 3.13 L Hgb 10.6 L Hct 30.6 L POC Hct MCH Seg Neutrophils % Lymphocytes % POC Sodium Sodium POC Chloride Chloride Carbon Dioxide POC Total CO2 BUN Creatinine POC Creatinine Glucose POC Glucose Osmolality Calcium POC WB Ioniz Calcium Magnesium Direct Bilirubin Alkaline Phosphatase Total Protein Albumin Globulin TSH Cortisol AM Sample Meds: Medications Acetaminophen (Tylenol) 1,000 mg PO Q8 [facility]; Protocol Last Admin: 10/27/19 05:43 Dose: Not Given Documented by: Albuterol/Ipratropium (Duoneb) 3 ml NEB Q4HP PRN PRN Reason: Shortness Of Breath Apixaban (Eliquis) 2.5 mg PO BID [facility] Last Admin: 10/26/19 20:45 Dose: 2.5 mg Documented by: Bisacodyl (Dulcolax) 10 mg VA Q2-3DAYS PRN PRN Reason: Constipation Carvedilol (Coreg) 12.5 mg PO [facility] Last Admin: 10/26/19 11:07 Dose: 12.5 mg Documented by: Docusate Sodium (Colace) 100 mg PO BID [facility] Last Admin: 10/26/19 20:47 Dose: 100 mg Documented by: Hydralazine HCl (Apresoline) 20 mg IV Q4-6HP PRN PRN Reason: hypertension over 150 Last Admin: 10/26/19 14:20 Dose: 20 mg Documented by: Hydromorphone HCl (Dilaudid) 0 mg IV Q4HP PRN; Protocol PRN Reason: Per Pain Protocol Last Admin: 10/26/19 14:30 Dose: 0.5 mg Documented by: Acetaminophen (Ofirmev) 650 mg in 65 mls @ 130 mls/hr IV Q6HP PRN; Protocol PRN Reason: Per Pain Protocol/Fever > 101 Magnesium Sulfate (Magnesium Sulfate) 2 gm in 50 mls @ 50 mls/hr IV UD PRN PRN Reason: MG = or < 1.7 Last Infusion: 10/26/19 14:10 Dose: Infused Documented by: Labetalol HCl (Trandate) 0 mg IV Q2HP PRN PRN Reason: Hypertension Lisinopril (Zestril) 20 mg PO DAILY [facility] Last Admin: 10/26/19 11:06 Dose: 20 mg Documented by: Lorazepam (Ativan) 1 mg IV Q2HP PRN; Protocol PRN Reason: Alcohol Withdrawal Last Admin: 10/27/19 02:47 Dose: 1 mg Documented by: Melatonin (Melatonin 3mg Tablet) 3 mg PO HSP PRN PRN Reason: Insomnia Last Admin: 10/26/19 20:45 Dose: 3 mg Documented by: Methocarbamol (Robaxin) 750 mg PO TIDP PRN PRN Reason: Muscle Spasm Last Admin: 10/26/19 20:45 Dose: 750 mg Documented by: Nicotine (Nicoderm) 21 mg TOPICAL DAILY@1000 [facility] Last Admin: 10/26/19 12:54 Dose: Not Given Documented by: Ondansetron HCl (Zofran Odt) 4 mg SL Q4-6HP PRN; Protocol PRN Reason: Nausea And Vomiting Ondansetron HCl (Zofran) 4 mg IV Q4-6HP PRN; Protocol PRN Reason: Nausea And Vomiting Oxycodone HCl (Roxicodone) 0 mg PO Q4HP PRN; Protocol PRN Reason: Per Pain Protocol Last Admin: 10/26/19 20:46 Dose: 10 mg Documented by: Polyethylene Glycol (Miralax) 17 gm PO DAILYP PRN PRN Reason: Constipation Potassium Chloride (Klor-Con) 40 meq PO DAILYP PRN PRN Reason: K+ < 3.5 Last Admin: 10/26/19 11:07 Dose: 40 meq Documented by: Promethazine HCl (Phenergan) 6.25 mg IV Q4HP PRN PRN Reason: Nausea And Vomiting Senna (Senokot) 2 tab PO HS [facility] Last Admin: 10/26/19 20:45 Dose: 2 tab Documented by: Sodium Biphosphate/Sodium Phosphate (Fleets Adult) 1 dose VA Q3-4DAYS PRN PRN Reason: Constipation Sodium Chloride (Saline Flush) 10 ml IV Q8 [facility] Last Admin: 10/27/19 05:43 Dose: 10 ml Documented by: Sodium Chloride (Sodium Chloride) 2 gm PO TID [facility] Last Admin: 10/26/19 22:25 Dose: 2 gm Documented by: Tamsulosin HCl (Flomax) 0.4 mg PO HS [facility] Last Admin: 10/26/19 20:46 Dose: 0.4 mg Documented by: Throat Lozenges (Cepacol) 1 lozenge PO PRN PRN PRN Reason: Sore Throat A/P Narrative A/P Narrative: A: *Right hip fracture: s/p ORIF (10/24) -Preoperative risk evaluation-based on RCRI [place] [employer] risk stratification patient is a high risk overall candidate for immediate postoperative and intraoperative morbidity/mortality/ACS/CVA based on surgery specific risk. -Patient is aware of the risks of going to surgery. However surgery and anesthesia specific risks will be discussed by individual care provider. 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 Size 3.5 cm without evidence of malperfusion. 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 -improved *Likely fluid overload vs ?intraop aspiration or combo(left infiltrate initially, pt was left-lateral recumbant intraop) -left infiltrate improved, *acute Hypoxic Resp failure: 2/2 above - *Delerium o/n: *HTN: cont home ACEI/BB/CCB as needed hydralazine. *AFib(new): -CHADSVASC=2 Plan: -IV lasix, monitor i/o -echo pending -Hip per Ortho -Continue free water restriction/salt tabs/monitor sodium -Pain management -IS/Acapella, wean O2 -Outpatient interventional radiology follow-up referral for aortic dissection -cont bp meds -ppx: post-op ortho eliquis full code Time Spent With Patient Time: Total time spent is greater than 50% in coordination of care (as documented) at patient's floor/unit and/or counseling patient: QUALITY VTE Deep Vein Thrombosis/Pulmonary Embolism Present on Admission: No
[2019-10-27 07:44] LABS: ALT/SGPT 12 U/l (0-40); AST/SGOT 33 U/l (0-37); Albumin/Globulin Ratio 1.4 (1.0-2.3); Alkaline Phosphatase 39 U/L (39-117); Bilirubin,Direct 0.4 mg/dL (0.0-0.3); Bilirubin,Total 1.1 mg/dL (0.0-1.0); Blood Urea Nitrogen 11 mg/dl (8-23); Calcium 8.1 mg/dl (8.6-10.4); Carbon Dioxide 19 mmol/L (22-30); Chloride 97 mmol/L (96-108); Globulin 2.1 gm/dL (2.2-3.7); Glomerular Filtration Rate 94; Glucose 99 mg/dL (70-105); Lactate Dehydrogenase 183 U/L (94-250); Phosphorous 2.8 mg/dL (2.7-4.5); Triglycerides 83 mg/dl (<150); Uric Acid 5.9 mg/dL (2.5-8.0)
[2019-10-27] MEDS: DOCUSATE SODIUM 100 MG CAPSULE PO SCH ×2 (08:21→20:17)
--- NOTE | 2019-10-27 08:24 | XRay Report ---
HISTORY: Respiratory distress, follow-up pulmonary infiltrates FINDINGS: There is diffuse infiltrates throughout both lungs. This is predominantly an inner is distal distribution. Lung volumes are normal. There is no lobar consolidation or pleural effusion. The heart is mildly enlarged. Comparison with the prior exam from 1120 shows the infiltrates have become worse. However, more severe involvement is seen centrally in the left lung the medial postoperative chest x-ray done on 10/25/19. This has not reoccurred. IMPRESSION: increasing interstitial opacities with a few curly B lines. The findings are more likely due to congestive heart failure and interstitial edema rather than widespread bilateral pneumonia or ARDS.. Interpreted and Authenticated by: Wilder Gomes 10/27/19
[2019-10-27] MEDS ORDERED: FUROSEMIDE 40 MG/4 ML VIAL IV ONE ×3 (08:53→16:00)
[2019-10-27] MEDS: APIXABAN 5 MG TABLET PO SCH ×2 (09:13→20:16)
[2019-10-27] MEDS: SODIUM CHLORIDE 1 GM TABLET PO SCH ×3 (09:13→20:17)
[2019-10-27] MEDS: CARVEDILOL 12.5 MG TABLET PO SCH (09:13)
[2019-10-27] MEDS: POTASSIUM CHLORIDE 20 MEQ PACKET PO PRN (09:13)
[2019-10-27] MEDS: LISINOPRIL 20 MG TABLET PO SCH (09:13)
[2019-10-27] MEDS: NICOTINE 21 MG PATCH TOPICAL SCH (11:25)
[2019-10-27] MEDS: METHOCARBAMOL 750 MG TABLET PO PRN ×2 (11:43→22:01)
[2019-10-27] MEDS: oxyCODONE HCL 5 MG TABLET PO PRN ×2 (11:43→20:17)
[2019-10-27] MEDS: IPRATROPIUM/ALBUTEROL 3 ML AMPUL.NEB NEB PRN ×2 (12:30→16:45)
[2019-10-27] MEDS ORDERED: hydrOXYzine 25 MG TABLET PO ONE (12:43)
[2019-10-27] MEDS ORDERED: ALBUMIN HUMAN 12.5 GM/50 ML BAG IV ONE (16:00)
[2019-10-27] MEDS: SENNOSIDES 1 TABLET PO SCH (20:17)
[2019-10-27] MEDS: OLANZapine 5 MG TABLET PO SCH (20:17)
[2019-10-27] MEDS: TAMSULOSIN 0.4 MG CAPSULE PO SCH (20:17)
[2019-10-27] MEDS ORDERED: MELATONIN 3 MG TABLET PO SCH (21:00)
[2019-10-28] MEDS: ACETAMINOPHEN 500 MG TABLET PO SCH ×3 (05:37→21:01)
[2019-10-28] MEDS: 0.9 % SODIUM CHLORIDE 10 ML SYRINGE IV SCH ×3 (05:37→20:54)
--- NOTE | 2019-10-28 07:34 | Orthopedic Progress Note ---
SUBJECTIVE Subjective Patient information: Note initiated : 10/28/19 at 7:27 am Service Date, if different from initiated Date: [] Patient: Pedrito Escudero 74 y/o M admitted on 10/21/19 for R hip pain, Ground level fall. He is POD#3 s/p ORIF right greater troch periprosthetic fracture. Admits to pain in the hip but states it is managed. Admits to GE, denies difficulty breathing, CP, N/V, new onset paresthesias. He has been working with PT on transfers and ambulation. Chief Complaint: right hip pain. Constitutional Vitals: Vital Signs Temp Pulse Resp BP Pulse Ox 97.7 F 73 22 147/81 96 10/28/19 06:23 10/28/19 06:23 10/28/19 06:23 10/28/19 06:23 10/28/19 06:23 Period Temp Pulse Resp BP Sys/Castro Pulse Ox Last 24 Hr 97.7 F-100 F 40-100 13-34 97-173/58-97 90-99 Intake and Output 10/27/19 10/28/19 10/28/19 21:59 05:59 13:59 Intake Total 1040 Output Total 500 200 Balance 540 -200 Weight 191 lb 6.4 oz Intake & Output: Intake & Output 10/27/19 10/28/19 10/28/19 21:59 05:59 13:59 Intake Total 1040 Output Total 500 200 Balance 540 -200 Weight 191 lb 6.4 oz Intake: IV 50 Oral 990 Output: Urine Catheter Amount 500 200 Other: Urine Appearance Clear Large Blood Clots Hematuria Uretheral (Ballard) Hematuria Hematuria Urine Color Light Makayla Dark Makayla Blood Tinged Uretheral (Ballard) Light Makayla Dark Red Extremities Exam Extremities exam: Present normal capillary refill, normal inspection, Foot pink and warm and neurovascular intact; Absent calf tenderness and Mariela's sign Psychiatric Psychiatric exam: Present normal affect and normal mood Additional findings Additional findings: Pt is alert but very somnolent. Dressing over right hip is saturated. Able to flex/extend the knee. Full ROM ankle/foot. OBJ DATA Labs CBC & Chem 7: 10/26/19 04:02 10/27/19 04:02 Labs: Abnormal Lab Results 08/12/20 08/12/20 08/11/20 10:22 04:02 14:13 RBC Hgb Hct POC Hct Seg Neutrophils % Lymphocytes % POC Sodium Sodium 129 L POC Chloride Chloride Carbon Dioxide 19 L POC Total CO2 Creatinine POC Creatinine Glucose POC Glucose Osmolality Calcium 8.1 L POC WB Ioniz Calcium Magnesium Total Bilirubin 1.1 H Direct Bilirubin 0.4 H NT-Pro-B Natriuret Pep 93136.0 H Total Protein 5.1 L Albumin 3.0 L Globulin 2.1 L TSH 0.25 L Cortisol AM Sample 10/26/19 10/26/19 10/26/19 14:13 04:02 04:02 RBC Hgb Hct POC Hct 28.0 L Seg Neutrophils % Lymphocytes % POC Sodium 127 L Sodium POC Chloride 94 L Chloride Carbon Dioxide POC Total CO2 19 L Creatinine POC Creatinine 0.5 L Glucose POC Glucose 117 H Osmolality 264 L Calcium POC WB Ioniz Calcium 1.11 L Magnesium Total Bilirubin Direct Bilirubin NT-Pro-B Natriuret Pep Total Protein Albumin Globulin TSH Cortisol AM Sample 3.9 L 10/26/19 10/26/19 10/25/19 04:02 04:02 08:09 RBC 2.91 L Hgb 9.8 L Hct 27.4 L POC Hct Seg Neutrophils % 95 H Lymphocytes % 2 L POC Sodium Sodium 125 L 126 L POC Chloride Chloride 92 L Carbon Dioxide 18 L POC Total CO2 Creatinine 0.6 L POC Creatinine Glucose 132 H POC Glucose Osmolality Calcium 7.7 L POC WB Ioniz Calcium Magnesium 1.5 L Total Bilirubin Direct Bilirubin 0.4 H NT-Pro-B Natriuret Pep Total Protein 5.0 L Albumin 3.0 L Globulin 2.0 L TSH Cortisol AM Sample Meds: Medications Acetaminophen (Tylenol) 1,000 mg PO Q8 [facility]; Protocol Last Admin: 10/28/19 05:37 Dose: 1,000 mg Documented by: Albuterol/Ipratropium (Duoneb) 3 ml NEB Q4HP PRN PRN Reason: Shortness Of Breath Last Admin: 10/27/19 16:45 Dose: 3 ml Documented by: Apixaban (Eliquis) 2.5 mg PO BID [facility] Last Admin: 10/27/19 20:16 Dose: 2.5 mg Documented by: Bisacodyl (Dulcolax) 10 mg MD Q2-3DAYS PRN PRN Reason: Constipation Carvedilol (Coreg) 12.5 mg PO [facility] Last Admin: 10/27/19 09:13 Dose: 12.5 mg Documented by: Docusate Sodium (Colace) 100 mg PO BID [facility] Last Admin: 10/27/19 20:17 Dose: 100 mg Documented by: Hydralazine HCl (Apresoline) 20 mg IV Q4-6HP PRN PRN Reason: hypertension over 150 Last Admin: 10/26/19 14:20 Dose: 20 mg Documented by: Acetaminophen (Ofirmev) 650 mg in 65 mls @ 130 mls/hr IV Q6HP PRN; Protocol PRN Reason: Per Pain Protocol/Fever > 101 Magnesium Sulfate (Magnesium Sulfate) 2 gm in 50 mls @ 50 mls/hr IV UD PRN PRN Reason: MG = or < 1.7 Last Infusion: 10/26/19 14:10 Dose: Infused Documented by: Labetalol HCl (Trandate) 0 mg IV Q2HP PRN PRN Reason: Hypertension Last Admin: 10/27/19 08:08 Dose: 20 mg Documented by: Lisinopril (Zestril) 20 mg PO DAILY [facility] Last Admin: 10/27/19 09:13 Dose: 20 mg Documented by: Melatonin (Melatonin 3mg Tablet) 3 mg PO [facility] Last Admin: 10/27/19 22:01 Dose: 3 mg Documented by: Methocarbamol (Robaxin) 750 mg PO TIDP PRN PRN Reason: Muscle Spasm Last Admin: 10/27/19 22:01 Dose: 750 mg Documented by: Nicotine (Nicoderm) 21 mg TOPICAL DAILY@1000 [facility] Last Admin: 10/27/19 11:25 Dose: 21 mg Documented by: Olanzapine (Zyprexa) 5 mg PO BID [facility] Last Admin: 10/27/19 20:17 Dose: 5 mg Documented by: Ondansetron HCl (Zofran Odt) 4 mg SL Q4-6HP PRN; Protocol PRN Reason: Nausea And Vomiting Ondansetron HCl (Zofran) 4 mg IV Q4-6HP PRN; Protocol PRN Reason: Nausea And Vomiting Oxycodone HCl (Roxicodone) 0 mg PO Q4HP PRN; Protocol PRN Reason: Per Pain Protocol Last Admin: 10/27/19 20:17 Dose: 10 mg Documented by: Polyethylene Glycol (Miralax) 17 gm PO DAILYP PRN PRN Reason: Constipation Potassium Chloride (Klor-Con) 40 meq PO DAILYP PRN PRN Reason: K+ < 3.5 Last Admin: 10/27/19 09:13 Dose: 40 meq Documented by: Promethazine HCl (Phenergan) 6.25 mg IV Q4HP PRN PRN Reason: Nausea And Vomiting Senna (Senokot) 2 tab PO HS [facility] Last Admin: 10/27/19 20:17 Dose: 2 tab Documented by: Sodium Biphosphate/Sodium Phosphate (Fleets Adult) 1 dose MD Q3-4DAYS PRN PRN Reason: Constipation Sodium Chloride (Saline Flush) 10 ml IV Q8 [facility] Last Admin: 10/28/19 05:37 Dose: 10 ml Documented by: Sodium Chloride (Sodium Chloride) 1 gm PO TID [facility] Last Admin: 10/27/19 20:17 Dose: 1 gm Documented by: Tamsulosin HCl (Flomax) 0.4 mg PO HS [facility] Last Admin: 10/27/19 20:17 Dose: 0.4 mg Documented by: Throat Lozenges (Cepacol) 1 lozenge PO PRN PRN PRN Reason: Sore Throat A/P Assessment and plan (1) Closed fracture of proximal end of femur: Status: Acute Comment: Pt is a 74 yo male POD# 3 s/p ORIF right hip greater troch periprosthetic fracture. Pt has echo pending per hospitalist. -PT/OT: 50% WB with Right lower extremity. --continue pain medications --dressing change today. --continue diet --prophy: DIANE Steward, SCDs. --dispo: likely skilled rehab. Time Spent With Patient Time: Total time spent is greater than 50% in coordination of care (as documented) at patient's floor/unit and/or counseling patient:
--- NOTE | 2019-10-28 07:35 | Internal Med Progress Note ---
SUBJECTIVE Subjective Patient information: Note initiated : 10/28/19 at 7:30 am Service Date, if different from initiated Date: [] Patient: Pedrito Escudero a 74 y/o M admitted on 10/21/19 for R hip pain, Ground level fall. Chief Complaint: [] Interval history: History of present illness: Mr. Escudero is a 74 year old M with a history of hypertension presents to the ER following a fall on his right hip. Patient was carrying a load on his pickup truck when the tailgate gave way and slammed his arm was in him to slip and fall on the ground. Patient was brought to the ER. Initial work-up was consistent with subtrochanteric right hip fracture. Orthopedics was consulted and recommended follow-up on Friday for operative intervention. However due to significant pain patient request admission. 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 Case was discussed by ER physician with interventional radiology who recommended outpatient follow-up for evaluation and subsequently hospitalist service was consulted for pain management. Patient received his usual dose of medication including amlodipine lisinopril due to elevated blood pressure around 160s. At the time of my evaluation patient is alert and oriented. History as above. Denies lightheaded dizziness chest pain or palpitation or shortness of breath. Denies lower back pain but endorses to significant right hip and groin pain. 10/21-patient doing a lot better. However overnight remains in pain. On antihypertensives. Blood pressure around 150 this morning. Per Ortho recommendations patient can be weightbearing as tolerated. Physical therapy ongoing. White count 11.3. 10/22-patient continues to experience pain in very concerned about gait instabilit y. Spouse at bedside. We will continue pain management/PT OT until patient undergoes surgery. Tolerating diet. No signs of alcohol withdrawal this morning. Lucid alert. On twice a day oral alcohol. Blood pressures at goal. No abdominal pain 10/23-patient doing well. Pain well controlled. Continuing home medications. Stable labs and hemodynamics. Sodium down to 120. Check urine and serum osmolarity. Continue salt tabs/free water restriction. 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 Every 4 sodium checks. 10/24-patient will undergo right hip surgical repair this afternoon. Sodium improved to 126 from a low of 117. Secondary to pain induced ADH release consistent with a urine osmolality 349. Continue free water restriction/salt tabs. Will review postoperatively. Pain in good control. 10/25 Status post ORIF last evening and intraoperatively had episodes of mild hypotension and also was given blood transfusion. Slept well. No new complaints this morning has a little bit of cough she has had for a few days. Oxygenating better. 10/26 Confusion last night. Increase oxygen need earlier this morning. Chest x-ray pulmonary edema. Lasix ordered. Patient on oxygen mask 10 L, as needed BiPAP. For bedside. Patient able answer questions appropriately. 10/27 But better and feeling better. On room air this morning. at bedside. Awaiting echo results. Saturated dressing over incision site. Denies shortness of breath or coughing this morning. Review of Systems: denies headache/fever/chills/nausea/vomiting/chest or abdominal pain/cough/dyspnea/diarrhea. Otherwise see above. Constitutional Vitals: Vital Signs Temp Pulse Resp BP Pulse Ox 97.7 F 73 22 147/81 96 10/28/19 06:23 10/28/19 06:23 10/28/19 06:23 10/28/19 06:23 10/28/19 06:23 Period Temp Pulse Resp BP Sys/Castro Pulse Ox Last 24 Hr 97.7 F-100 F 40-100 13-34 97-173/58-97 90-99 Intake and Output 10/27/19 10/28/19 10/28/19 21:59 05:59 13:59 Intake Total 1040 Output Total 500 200 Balance 540 -200 Weight 86.818 kg Intake & Output: Intake & Output 10/27/19 10/28/19 10/28/19 21:59 05:59 13:59 Intake Total 1040 Output Total 500 200 Balance 540 -200 Weight 86.818 kg Intake: IV 50 Oral 990 Output: Urine Catheter Amount 500 200 Other: Urine Appearance Clear Large Blood Clots Hematuria Uretheral (Ballard) Hematuria Hematuria Urine Color Light Makayla Dark Makayla Blood Tinged Uretheral (Ballard) Light Makayla Dark Red Exam: General: Alert, Awake, No acute Distress Eyes/N/T: EOMI, Head/Neck: neck supple, CV: reg with irregularity, No murmurs, Pulm: b/l rhonchi and mile rales - improving, no wheezing, Abd: soft, nontender, +BS x4 Ext: no clubbing/cyanosis/edema, right hip in dressings Neuro: Alert, no focal deficits, moves all extremities, Skin: warm/dry OBJ DATA Labs CBC & Chem 7: 10/26/19 04:02 10/28/19 04:50 Labs: Abnormal Lab Results 10/27/19 10/27/19 10/26/19 10:22 04:02 14:13 RBC Hgb Hct POC Hct Seg Neutrophils % Lymphocytes % POC Sodium Sodium 129 L POC Chloride Chloride Carbon Dioxide 19 L POC Total CO2 Creatinine POC Creatinine Glucose POC Glucose Osmolality Calcium 8.1 L POC WB Ioniz Calcium Magnesium Total Bilirubin 1.1 H Direct Bilirubin 0.4 H NT-Pro-B Natriuret Pep 42794.0 H Total Protein 5.1 L Albumin 3.0 L Globulin 2.1 L TSH 0.25 L Cortisol AM Sample 10/26/19 10/26/19 10/26/19 14:13 04:02 04:02 RBC Hgb Hct POC Hct 28.0 L Seg Neutrophils % Lymphocytes % POC Sodium 127 L Sodium POC Chloride 94 L Chloride Carbon Dioxide POC Total CO2 19 L Creatinine POC Creatinine 0.5 L Glucose POC Glucose 117 H Osmolality 264 L Calcium POC WB Ioniz Calcium 1.11 L Magnesium Total Bilirubin Direct Bilirubin NT-Pro-B Natriuret Pep Total Protein Albumin Globulin TSH Cortisol AM Sample 3.9 L 10/26/19 10/26/19 10/25/19 04:02 04:02 08:09 RBC 2.91 L Hgb 9.8 L Hct 27.4 L POC Hct Seg Neutrophils % 95 H Lymphocytes % 2 L POC Sodium Sodium 125 L 126 L POC Chloride Chloride 92 L Carbon Dioxide 18 L POC Total CO2 Creatinine 0.6 L POC Creatinine Glucose 132 H POC Glucose Osmolality Calcium 7.7 L POC WB Ioniz Calcium Magnesium 1.5 L Total Bilirubin Direct Bilirubin 0.4 H NT-Pro-B Natriuret Pep Total Protein 5.0 L Albumin 3.0 L Globulin 2.0 L TSH Cortisol AM Sample Meds: Medications Acetaminophen (Tylenol) 1,000 mg PO Q8 SELMA; Protocol Last Admin: 10/28/19 05:37 Dose: 1,000 mg Documented by: Albuterol/Ipratropium (Duoneb) 3 ml NEB Q4HP PRN PRN Reason: Shortness Of Breath Last Admin: 10/27/19 16:45 Dose: 3 ml Documented by: Apixaban (Eliquis) 2.5 mg PO BID [facility] Last Admin: 10/27/19 20:16 Dose: 2.5 mg Documented by: Bisacodyl (Dulcolax) 10 mg OR Q2-3DAYS PRN PRN Reason: Constipation Carvedilol (Coreg) 12.5 mg PO [facility] Last Admin: 10/27/19 09:13 Dose: 12.5 mg Documented by: Docusate Sodium (Colace) 100 mg PO BID [facility] Last Admin: 10/27/19 20:17 Dose: 100 mg Documented by: Hydralazine HCl (Apresoline) 20 mg IV Q4-6HP PRN PRN Reason: hypertension over 150 Last Admin: 10/26/19 14:20 Dose: 20 mg Documented by: Acetaminophen (Ofirmev) 650 mg in 65 mls @ 130 mls/hr IV Q6HP PRN; Protocol PRN Reason: Per Pain Protocol/Fever > 101 Magnesium Sulfate (Magnesium Sulfate) 2 gm in 50 mls @ 50 mls/hr IV UD PRN PRN Reason: MG = or < 1.7 Last Infusion: 10/26/19 14:10 Dose: Infused Documented by: Labetalol HCl (Trandate) 0 mg IV Q2HP PRN PRN Reason: Hypertension Last Admin: 10/27/19 08:08 Dose: 20 mg Documented by: Lisinopril (Zestril) 20 mg PO DAILY [facility] Last Admin: 10/27/19 09:13 Dose: 20 mg Documented by: Melatonin (Melatonin 3mg Tablet) 3 mg PO [facility] Last Admin: 10/27/19 22:01 Dose: 3 mg Documented by: Methocarbamol (Robaxin) 750 mg PO TIDP PRN PRN Reason: Muscle Spasm Last Admin: 10/27/19 22:01 Dose: 750 mg Documented by: Nicotine (Nicoderm) 21 mg TOPICAL DAILY@1000 [facility] Last Admin: 10/27/19 11:25 Dose: 21 mg Documented by: Olanzapine (Zyprexa) 5 mg PO BID [facility] Last Admin: 10/27/19 20:17 Dose: 5 mg Documented by: Ondansetron HCl (Zofran Odt) 4 mg SL Q4-6HP PRN; Protocol PRN Reason: Nausea And Vomiting Ondansetron HCl (Zofran) 4 mg IV Q4-6HP PRN; Protocol PRN Reason: Nausea And Vomiting Oxycodone HCl (Roxicodone) 0 mg PO Q4HP PRN; Protocol PRN Reason: Per Pain Protocol Last Admin: 10/27/19 20:17 Dose: 10 mg Documented by: Polyethylene Glycol (Miralax) 17 gm PO DAILYP PRN PRN Reason: Constipation Potassium Chloride (Klor-Con) 40 meq PO DAILYP PRN PRN Reason: K+ < 3.5 Last Admin: 10/27/19 09:13 Dose: 40 meq Documented by: Promethazine HCl (Phenergan) 6.25 mg IV Q4HP PRN PRN Reason: Nausea And Vomiting Senna (Senokot) 2 tab PO [facility] Last Admin: 10/27/19 20:17 Dose: 2 tab Documented by: Sodium Biphosphate/Sodium Phosphate (Fleets Adult) 1 dose OR Q3-4DAYS PRN PRN Reason: Constipation Sodium Chloride (Saline Flush) 10 ml IV Q8 [facility] Last Admin: 10/28/19 05:37 Dose: 10 ml Documented by: Sodium Chloride (Sodium Chloride) 1 gm PO TID [facility] Last Admin: 10/27/19 20:17 Dose: 1 gm Documented by: Tamsulosin HCl (Flomax) 0.4 mg PO [facility] Last Admin: 10/27/19 20:17 Dose: 0.4 mg Documented by: Throat Lozenges (Cepacol) 1 lozenge PO PRN PRN PRN Reason: Sore Throat A/P Narrative A/P Narrative: A: *Right hip fracture: s/p ORIF (10/24) -Preoperative risk evaluation-based on RCRI [place] [employer] risk stratification patient is a high risk overall candidate for immediate postoperative and intraoperative morbidity/mortality/ACS/CVA based on surgery specific risk. -Patient is aware of the risks of going to surgery. However surgery and anesthesia specific risks will be discussed by individual care provider. 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 Size 3.5 cm without evidence of malperfusion. 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 -improved *acute on likely chronic CHF: - *acute Hypoxic Resp failure: 2/2 above -covid neg on 10/23 -now on room air *Delerium: resolved *HTN: cont home ACEI/BB/ needed hydralazine. *AFib(new): -CHADSVASC=2 Plan: -IV lasix, monitor i/o -echo pending -Hip per Ortho -Continue free water restriction/salt tabs/monitor sodium -Pain management -IS/Acapella, wean O2 -cont BB/ACEI -Outpatient interventional radiology follow-up referral for aortic dissection -cont bp meds -ppx: post-op ortho eliquis full code Time Spent With Patient Time: Total time spent is greater than 50% in coordination of care (as documented) at patient's floor/unit and/or counseling patient: QUALITY VTE Deep Vein Thrombosis/Pulmonary Embolism Present on Admission: No
[2019-10-28 07:54] LABS: Chloride 99 mmol/L (96-108)
[2019-10-28 07:56] LABS: ALT/SGPT 12 U/l (0-40); AST/SGOT 29 U/l (0-37); Albumin 2.8 gm/dL (3.2-5.2); Albumin/Globulin Ratio 1.2 (1.0-2.3); Alkaline Phosphatase 40 U/L (39-117); Bilirubin,Direct 0.4 mg/dL (0.0-0.3); Bilirubin,Total 1.2 mg/dL (0.0-1.0); Blood Urea Nitrogen 13 mg/dl (8-23); Calcium 8.2 mg/dl (8.6-10.4); Carbon Dioxide 20 mmol/L (22-30); Globulin 2.3 gm/dL (2.2-3.7); Glomerular Filtration Rate 100; Glucose 111 mg/dL (70-105); Lactate Dehydrogenase 207 U/L (94-250); Triglycerides 80 mg/dl (<150); Uric Acid 6.6 mg/dL (2.5-8.0)
--- NOTE | 2019-10-28 09:10 | XRay Report ---
HISTORY: Follow-up edema FINDINGS: Generalized alveolar opacities are present throughout both lungs. Lung lungs are normal and there is no lobar consolidation. The heart has diminished in size since yesterday. The alveolar opacities have not changed. No pleural effusion is detected. IMPRESSION: Decrease cardiomegaly with persistent infiltrates throughout both lungs. This could be pulmonary edema, pneumonia or ARDS. Interpreted and Authenticated by: Wilder Gomes 10/28/19
[2019-10-28] MEDS: APIXABAN 5 MG TABLET PO SCH ×2 (09:35→20:54)
[2019-10-28] MEDS: SODIUM CHLORIDE 1 GM TABLET PO SCH ×3 (09:35→20:53)
[2019-10-28] MEDS: DOCUSATE SODIUM 100 MG CAPSULE PO SCH ×2 (09:35→20:53)
[2019-10-28] MEDS: CARVEDILOL 12.5 MG TABLET PO SCH (09:35)
[2019-10-28] MEDS: LISINOPRIL 20 MG TABLET PO SCH (09:35)
[2019-10-28] MEDS: OLANZapine 5 MG TABLET PO SCH (09:36)
[2019-10-28] MEDS: NICOTINE 21 MG PATCH TOPICAL SCH (09:36)
[2019-10-28] MEDS ORDERED: OLANZapine 5 MG TABLET PO PRN (09:37)
[2019-10-28] MEDS: oxyCODONE HCL 5 MG TABLET PO PRN ×2 (09:37→21:01)
[2019-10-28] MEDS ORDERED: POTASSIUM CHLORIDE 20 MEQ TABLET PO ONE (09:37)
[2019-10-28] MEDS ORDERED: FUROSEMIDE 40 MG/4 ML VIAL IV ONE (09:59)
[2019-10-28] MEDS ORDERED: ALBUMIN HUMAN 12.5 GM/50 ML BAG IV ONE (09:59)
[2019-10-28] MEDS: POTASSIUM CHLORIDE 20 MEQ PACKET PO PRN ×2 (10:03→10:05)
[2019-10-28] MEDS ORDERED: TRANEXAMIC ACID 1,000 MG/10 ML VIAL IV ONE (10:58)
[2019-10-28] MEDS ORDERED: KETAMINE 100 MG/ML ML IV ONE (10:58)
[2019-10-28] MEDS ORDERED: HETASTARCH 6% 500 ML BAG IV ONE (10:58)
[2019-10-28] MEDS ORDERED: MAGNESIUM SULFATE 2 GM/50 ML BAG IV PRN (10:58)
[2019-10-28] MEDS ORDERED: HYDROmorphone 1 MG/ML SYRINGE IV ONE (10:58)
[2019-10-28] MEDS ORDERED: ONDANSETRON 4 MG/2 ML VIAL IV ONE (10:58)
[2019-10-28] MEDS ORDERED: LABETALOL 5 MG/ML ML IV PRN (10:58)
[2019-10-28] MEDS ORDERED: PROMETHAZINE 25 MG/ML VIAL IV PRN (10:58)
[2019-10-28] MEDS ORDERED: FLEETS ADULT ENEMA PR PRN (10:58)
[2019-10-28] MEDS ORDERED: IPRATROPIUM/ALBUTEROL 3 ML AMPUL.NEB NEB PRN (10:58)
[2019-10-28] MEDS ORDERED: IOPAMIDOL 150 ML BOTTLE IV ONE (10:58)
[2019-10-28] MEDS ORDERED: BISACODYL 10 MG SUPP.RECT PR PRN (10:58)
[2019-10-28] MEDS ORDERED: BENZOCAINE/MENTHOL 1 LOZENGE PO PRN (10:58)
[2019-10-28] MEDS ORDERED: fentaNYL 250 MCG/5 ML VIAL IV ONE (10:58)
[2019-10-28] MEDS ORDERED: LIDOCAINE HCL/PF 100 MG/5 ML SYRINGE IV ONE (10:58)
[2019-10-28] MEDS ORDERED: ePHEDrine 50 MG/ML AMPUL IV ONE (10:58)
[2019-10-28] MEDS ORDERED: PHENYLEPHRINE 10 MG/ML VIAL IV ONE (10:58)
[2019-10-28] MEDS ORDERED: ONDANSETRON 4 MG ODT TABLET SL PRN (10:58)
[2019-10-28] MEDS ORDERED: FUROSEMIDE 20 MG/2 ML VIAL IV ONE (10:58)
[2019-10-28] MEDS ORDERED: POLYETHYLENE GLYCOL 3350 17 GM PACKET PO PRN (10:58)
[2019-10-28] MEDS ORDERED: ACETAMINOPHEN 650 MG/65 ML BOTTLE IV PRN (10:58)
[2019-10-28] MEDS ORDERED: ONDANSETRON 4 MG/2 ML VIAL IV PRN (10:58)
[2019-10-28] MEDS ORDERED: POTASSIUM CHLORIDE 20 MEQ PACKET PO PRN (10:58)
[2019-10-28] MEDS ORDERED: PROPOFOL 200 MG/20 ML VIAL IV ONE (10:58)
[2019-10-28] MEDS ORDERED: IOPAMIDOL 100 ML BOTTLE IV ONE (13:20)
--- NOTE | 2019-10-28 13:43 | Cat Scan Report ---
History: Follow-up abdominal aorta aneurysm or dissection TECHNIQUE: Following injection of intravenous nonionic contrast the patient was scanned during arterial phase from the diaphragm to the proximal femurs. Sagittal, coronal and 3-D volume rendered images were created. The radiation exposure was limited using dose reduction technology. FINDINGS: Small bilateral pleural effusions are present. There is consolidation in the adjacent posterior basal segments of both lower lobes. This is a new finding since the recent CT done on 10/23/19. The heart is mildly enlarged. The liver and spleen are normal in size. There are inhomogeneous on account of the early arterial phase imaging. The gallbladder is contracted and there is a small stone within the lumen. The bile ducts are nondilated. The pancreas and adrenals are normal. No abnormality seen within either kidney. There is a 6 mm cyst in the lower pole the right kidney. Patient has severe atherosclerotic disease throughout the abdomen or pelvis. 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 There are large plaques at the origins of both renal arteries causing greater than 70% stenoses. The distal abdominal aorta there is a small fusiform aneurysm which measures 3.7 x 3.7 cm in diameter. Within the lumen of the aneurysm and there is a subacute to chronic dissection. The dissection is 4.5 cm in length and the false lumen is filled with thrombus. There is been no propagation of the dissection since the prior study done on 10/23/19. No retroperitoneal hemorrhage is present. There is severe atherosclerotic disease with plaque and clot causing complete occlusion of the right common and external iliac arteries. There are high-grade stenoses in the right internal iliac. Severe atherosclerotic disease is present in the left iliac arteries but the arteries are patent with several isolated hemodynamically significant stenoses. There is a Ballard catheter in the bladder. Bowel pattern is normal with a large amount stool in the distal colon. Arthritis is present in the spine and left hip and there is a right hip prosthesis. IMPRESSION: Stable dissection in a 3.5 cm aneurysm in the distal abdominal aorta. 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
[2019-10-28] MEDS: BENZONATATE 100 MG CAPSULE PO PRN (17:34)
[2019-10-28] MEDS: TAMSULOSIN 0.4 MG CAPSULE PO SCH (20:53)
[2019-10-28] MEDS: MELATONIN 3 MG TABLET PO SCH (20:53)
[2019-10-28] MEDS: SENNOSIDES 1 TABLET PO SCH (20:53)
[2019-10-29] MEDS: METHOCARBAMOL 750 MG TABLET PO PRN ×3 (02:44→20:18)
[2019-10-29] MEDS: 0.9 % SODIUM CHLORIDE 10 ML SYRINGE IV SCH ×3 (06:01→23:49)
[2019-10-29] MEDS: ACETAMINOPHEN 500 MG TABLET PO SCH ×3 (06:01→23:49)
[2019-10-29 06:53] LABS: Blood Urea Nitrogen 14 mg/dl (8-23); Calcium 8.7 mg/dl (8.6-10.4); Carbon Dioxide 22 mmol/L (22-30); Chloride 100 mmol/L (96-108); Glomerular Filtration Rate 100; Glucose 115 mg/dL (70-105)
--- NOTE | 2019-10-29 07:22 | Internal Med Progress Note ---
SUBJECTIVE Subjective Patient information: Note initiated : 10/29/19 at 7:19 am Service Date, if different from initiated Date: [] Patient: Pedrito Escudero a 74 y/o M admitted on 10/21/19 for R hip pain, Ground level fall. Chief Complaint: [] Interval history: History of present illness: Mr. Escudero is a 74 year old M with a history of hypertension presents to the ER following a fall on his right hip. Patient was carrying a load on his pickup truck when the tailgate gave way and slammed his arm was in him to slip and fall on the ground. Patient was brought to the ER. Initial work-up was consistent with subtrochanteric right hip fracture. Orthopedics was consulted and recommended follow-up on Friday for operative intervention. However due to significant pain patient request admission. 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 Case was discussed by ER physician with interventional radiology who recommended outpatient follow-up for evaluation and subsequently hospitalist service was consulted for pain management. Patient received his usual dose of medication including amlodipine lisinopril due to elevated blood pressure around 160s. At the time of my evaluation patient is alert and oriented. History as above. Denies lightheaded dizziness chest pain or palpitation or shortness of breath. Denies lower back pain but endorses to significant right hip and groin pain. 10/21-patient doing a lot better. However overnight remains in pain. On antihypertensives. Blood pressure around 150 this morning. Per Ortho recommendations patient can be weightbearing as tolerated. Physical therapy ongoing. White count 11.3. 10/22-patient continues to experience pain in very concerned about gait instabilit y. Spouse at bedside. We will continue pain management/PT OT until patient undergoes surgery. Tolerating diet. No signs of alcohol withdrawal this morning. Lucid alert. On twice a day oral alcohol. Blood pressures at goal. No abdominal pain 10/23-patient doing well. Pain well controlled. Continuing home medications. Stable labs and hemodynamics. Sodium down to 120. Check urine and serum osmolarity. Continue salt tabs/free water restriction. 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 Every 4 sodium checks. 10/24-patient will undergo right hip surgical repair this afternoon. Sodium improved to 126 from a low of 117. Secondary to pain induced ADH release consistent with a urine osmolality 349. Continue free water restriction/salt tabs. Will review postoperatively. Pain in good control. 10/25 Status post ORIF last evening and intraoperatively had episodes of mild hypotension and also was given blood transfusion. Slept well. No new complaints this morning has a little bit of cough she has had for a few days. Oxygenating better. 10/26 Confusion last night. Increase oxygen need earlier this morning. Chest x-ray pulmonary edema. Lasix ordered. Patient on oxygen mask 10 L, as needed BiPAP. For bedside. Patient able answer questions appropriately. 10/27 But better and feeling better. On room air this morning. at bedside. Awaiting echo results. Saturated dressing over incision site. Denies shortness of breath or coughing this morning. 10/28 Patient was put on 1 L of oxygen at night while he was sleeping but then taken off while he was awake this morning with good oxygenation. Patient does feel better. His cough is less frequent and is more dry. Does not feel any shortness of breath at the moment. Today's labs either unremarkable or improved. Review of Systems: denies headache/fever/chills/nausea/vomiting/chest or abdominal pain/diarrhea. Otherwise see above. Constitutional Vitals: Vital Signs Temp Pulse Resp BP Pulse Ox 98.8 F 69 18 156/68 94 10/28/19 20:00 10/28/19 16:01 10/28/19 20:00 10/29/19 04:01 10/29/19 00:32 Period Temp Pulse Resp BP Sys/Castro Pulse Ox Last 24 Hr 97.7 F-99.1 F 50-86 18-23 113-156/55-85 93-100 Intake and Output 10/28/19 10/29/19 10/29/19 21:59 05:59 13:59 Intake Total 180 420 Output Total 550 550 Balance -370 -130 Weight 89.086 kg Intake & Output: Intake & Output 10/28/19 10/29/19 10/29/19 21:59 05:59 13:59 Intake Total 180 420 Output Total 550 550 Balance -370 -130 Weight 89.086 kg Intake: Oral 420 GI Tube Flush 180 Output: Urine Catheter Amount 550 550 Other: Meal Dinner Percent of Meal Consumed 100% Feeding Ability Independent Urine Appearance Small Blood Clots Small Blood Clots Urine Color Tea Colored Dark Red Urine Odor Strong Exam: General: Alert, Awake, No acute Distress Eyes/N/T: EOMI, Head/Neck: neck supple, CV: irreg irreg, No murmurs, Pulm: b/l rhonchi much improved, mild wheezing, peripheral bronchial sounds Abd: soft, nontender, +BS x4 Ext: no clubbing/cyanosis/edema, right hip in dressings Neuro: Alert, no focal deficits, moves all extremities, Skin: warm/dry OBJ DATA Labs CBC & Chem 7: 10/29/19 07:35 10/29/19 04:53 Labs: Abnormal Lab Results 10/29/19 10/28/19 10/27/19 04:53 04:50 10:22 POC Hct Seg Neutrophils % Lymphocytes % POC Sodium Sodium 132 L Potassium 3.0 L POC Chloride Chloride Carbon Dioxide 20 L POC Total CO2 Creatinine 0.6 L 0.6 L POC Creatinine Glucose 115 H 111 H POC Glucose Osmolality Calcium 8.2 L POC WB Ioniz Calcium Total Bilirubin 1.2 H Direct Bilirubin 0.4 H NT-Pro-B Natriuret Pep 51585.0 H Total Protein 5.1 L Albumin 2.8 L Globulin TSH Cortisol AM Sample 10/27/19 10/26/19 10/26/19 04:02 14:13 14:13 POC Hct 28.0 L Seg Neutrophils % Lymphocytes % POC Sodium 127 L Sodium 129 L Potassium POC Chloride 94 L Chloride Carbon Dioxide 19 L POC Total CO2 19 L Creatinine POC Creatinine 0.5 L Glucose POC Glucose 117 H Osmolality Calcium 8.1 L POC WB Ioniz Calcium 1.11 L Total Bilirubin 1.1 H Direct Bilirubin 0.4 H NT-Pro-B Natriuret Pep Total Protein 5.1 L Albumin 3.0 L Globulin 2.1 L TSH 0.25 L Cortisol AM Sample 10/26/19 10/26/19 10/26/19 04:02 04:02 04:02 POC Hct Seg Neutrophils % Lymphocytes % POC Sodium Sodium 125 L Potassium POC Chloride Chloride 92 L Carbon Dioxide POC Total CO2 Creatinine POC Creatinine Glucose POC Glucose Osmolality 264 L Calcium POC WB Ioniz Calcium Total Bilirubin Direct Bilirubin 0.4 H NT-Pro-B Natriuret Pep Total Protein Albumin Globulin TSH Cortisol AM Sample 3.9 L 10/26/19 04:02 POC Hct Seg Neutrophils % 95 H Lymphocytes % 2 L POC Sodium Sodium Potassium POC Chloride Chloride Carbon Dioxide POC Total CO2 Creatinine POC Creatinine Glucose POC Glucose Osmolality Calcium POC WB Ioniz Calcium Total Bilirubin Direct Bilirubin NT-Pro-B Natriuret Pep Total Protein Albumin Globulin TSH Cortisol AM Sample Meds: Medications Acetaminophen (Tylenol) 1,000 mg PO Q8 [facility]; Protocol Last Admin: 10/29/19 06:01 Dose: 1,000 mg Documented by: Albuterol/Ipratropium (Duoneb) 3 ml NEB Q4HP PRN PRN Reason: Shortness Of Breath Apixaban (Eliquis) 2.5 mg PO BID [facility] Last Admin: 10/28/19 20:54 Dose: 2.5 mg Documented by: Benzonatate (Tessalon) 200 mg PO TIDP PRN PRN Reason: Cough Last Admin: 10/28/19 17:34 Dose: 200 mg Documented by: Bisacodyl (Dulcolax) 10 mg UT Q2-3DAYS PRN PRN Reason: Constipation Carvedilol (Coreg) 12.5 mg PO [facility] Docusate Sodium (Colace) 100 mg PO BID [facility] Last Admin: 10/28/19 20:53 Dose: 100 mg Documented by: Hydralazine HCl (Apresoline) 20 mg IV Q4-6HP PRN PRN Reason: hypertension over 150 Acetaminophen (Ofirmev) 650 mg in 65 mls @ 130 mls/hr IV Q6HP PRN; Protocol PRN Reason: Per Pain Protocol/Fever > 101 Magnesium Sulfate (Magnesium Sulfate) 2 gm in 50 mls @ 50 mls/hr IV UD PRN PRN Reason: MG = or < 1.7 Labetalol HCl (Trandate) 0 mg IV Q2HP PRN PRN Reason: Hypertension Melatonin (Melatonin 3mg Tablet) 3 mg PO HS [facility] Last Admin: 10/28/19 20:53 Dose: 3 mg Documented by: Methocarbamol (Robaxin) 750 mg PO TIDP PRN PRN Reason: Muscle Spasm Last Admin: 10/29/19 02:44 Dose: 750 mg Documented by: Nicotine (Nicoderm) 21 mg TOPICAL DAILY@1000 [facility] Olanzapine (Zyprexa) 5 mg PO BID PRN PRN Reason: Agitation Ondansetron HCl (Zofran Odt) 4 mg SL Q4-6HP PRN; Protocol PRN Reason: Nausea And Vomiting Ondansetron HCl (Zofran) 4 mg IV Q4-6HP PRN; Protocol PRN Reason: Nausea And Vomiting Oxycodone HCl (Roxicodone) 0 mg PO Q4HP PRN; Protocol PRN Reason: Per Pain Protocol Last Admin: 10/28/19 21:01 Dose: 10 mg Documented by: Polyethylene Glycol (Miralax) 17 gm PO DAILYP PRN PRN Reason: Constipation Potassium Chloride (Klor-Con) 40 meq PO DAILYP PRN PRN Reason: K+ < 3.5 Promethazine HCl (Phenergan) 6.25 mg IV Q4HP PRN PRN Reason: Nausea And Vomiting Senna (Senokot) 2 tab PO [facility] Last Admin: 10/28/19 20:53 Dose: 2 tab Documented by: Sodium Biphosphate/Sodium Phosphate (Fleets Adult) 1 dose UT Q3-4DAYS PRN PRN Reason: Constipation Sodium Chloride (Saline Flush) 10 ml IV Q8 [facility] Last Admin: 10/29/19 06:01 Dose: 10 ml Documented by: Sodium Chloride (Sodium Chloride) 1 gm PO TID [facility] Last Admin: 10/28/19 20:53 Dose: 1 gm Documented by: Tamsulosin HCl (Flomax) 0.4 mg PO HS [facility] Last Admin: 10/28/19 20:53 Dose: 0.4 mg Documented by: Throat Lozenges (Cepacol) 1 lozenge PO PRN PRN PRN Reason: Sore Throat A/P Assessment and plan (1) Closed fracture of proximal end of femur: Status: Acute Narrative A/P Narrative: A: *Right hip fracture: s/p ORIF (10/24) -Preoperative risk evaluation-based on RCRI [place] Heart Association risk stratification patient is a high risk overall candidate for immediate postoperative and intraoperative morbidity/mortality/ACS/CVA based on surgery specific risk. -Patient is aware of the risks of going to surgery. However surgery and anesthesia specific risks will be discussed by individual care provider. 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 Size 3.5 cm without evidence of malperfusion. 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 -IMproved *Acute on likely chronic Diastolic CHF: -echo EF wnl, severely dilated b/l atria *acute Hypoxic Resp failure: 2/2 above -covid neg on 10/23 -now on room air *Delerium: resolved *HTN: cont home ACEI/BB/ needed hydralazine. *AFib(new): -CHADSVASC=2 *Generalized weakness/deconditioning/debility: Plan: -prn IV lasix, monitor i/o -Hip per Ortho -Continue free water restriction, d/c salt tabs -Pain management -IS/Acapella, supp O2 prn -cont BB/ACEI -Outpatient interventional radiology follow-up referral for aortic dissection -CM for SNF on friday -ppx: post-op ortho eliquis full code Time Spent With Patient Time: Total time spent is greater than 50% in coordination of care (as documented) at patient's floor/unit and/or counseling patient: QUALITY VTE Deep Vein Thrombosis/Pulmonary Embolism Present on Admission: No
[2019-10-29] MEDS: APIXABAN 5 MG TABLET PO SCH ×2 (08:10→20:19)
[2019-10-29] MEDS: OLANZapine 5 MG TABLET PO PRN (08:11)
[2019-10-29] MEDS: DOCUSATE SODIUM 100 MG CAPSULE PO SCH ×2 (08:11→20:17)
[2019-10-29] MEDS: oxyCODONE HCL 5 MG TABLET PO PRN ×2 (08:11→20:17)
[2019-10-29] MEDS: CARVEDILOL 12.5 MG TABLET PO SCH (08:11)
[2019-10-29 08:55] LABS: Basophils # (Auto) 0.05 K/mcL (0.00-0.30); Basophils % (Auto) 0.5 % (0.0-2.0); Eosinophils # (Auto) 0.27 K/mcL (0.00-0.70); Eosinophils % (Auto) 2.9 % (0.0-7.0); Granulocytes % (Auto) 71.6 % (38.0-78.0); Hematocrit 30.9 % (40.1-51.0); Hemoglobin 10.5 g/dL (13.7-17.5); Lymphocytes # (Auto) 1.31 K/mcL (1.50-4.80); Lymphocytes % (Auto) 14.2 % (15.5-49.0); Mean Cell Volume 98.1 fL (80.0-100.0); Mean Platelet Volume 9.6 fL (7.4-10.4); Monocytes % (Auto) 10.8 % (1.0-12.0); Platelet Count 253 K/mcL (140-440); RBC 3.15 M/mcL (4.63-6.08); Red Cell Distribution Width 13.2 % (11.5-14.5); WBC 9.3 K/mcL (4.50-11.00)
[2019-10-29] MEDS ORDERED: LISINOPRIL 20 MG TABLET PO SCH (09:00)
[2019-10-29] MEDS ORDERED: IPRATROPIUM/ALBUTEROL 3 ML AMPUL.NEB NEB ONE (09:37)
--- NOTE | 2019-10-29 10:18 | XRay Report ---
HISTORY: Follow-up pleural effusions, edema and pulmonary infiltrates, recent fall FINDINGS: Lateral view shows small bilateral pleural effusions in the posterior costophrenic sulci. The bilateral alveolar opacities have improved since 10/28/19 with near complete resolution on the right side. There is residual mild involvement in the left lower thorax. The lung volumes are normal. The heart size is borderline enlarged but remains stable. No acute fracture is identified. IMPRESSION: Resolving infiltrates which is probably due to pulmonary edema. Persistent stable small bilateral pleural effusions Interpreted and Authenticated by: Wilder Gomes 10/29/19
[2019-10-29] MEDS ORDERED: FUROSEMIDE 40 MG/4 ML VIAL IV ONE (10:22)
[2019-10-29] MEDS ORDERED: ALBUMIN HUMAN 12.5 GM/50 ML BAG IV ONE (10:22)
[2019-10-29] MEDS: NICOTINE 21 MG PATCH TOPICAL SCH (10:43)
[2019-10-29] MEDS: TAMSULOSIN 0.4 MG CAPSULE PO SCH (20:18)
[2019-10-29] MEDS: SENNOSIDES 1 TABLET PO SCH (20:18)
[2019-10-29] MEDS: MELATONIN 3 MG TABLET PO SCH (20:18)
[2019-10-30] MEDS: 0.9 % SODIUM CHLORIDE 10 ML SYRINGE IV SCH ×3 (06:09→22:04)
[2019-10-30] MEDS: ACETAMINOPHEN 500 MG TABLET PO SCH ×3 (06:09→22:03)
[2019-10-30 06:39] LABS: Blood Urea Nitrogen 13 mg/dl (8-23); Calcium 8.6 mg/dl (8.6-10.4); Carbon Dioxide 21 mmol/L (22-30); Chloride 99 mmol/L (96-108); Glomerular Filtration Rate 100; Glucose 115 mg/dL (70-105)
--- NOTE | 2019-10-30 08:04 | Internal Med Progress Note ---
SUBJECTIVE Subjective Patient information: Note initiated : 10/30/19 at 8:01 am Service Date, if different from initiated Date: [] Patient: Pedrito Escudero a 74 y/o M admitted on 10/21/19 for R hip pain, Ground level fall. Chief Complaint: [] Interval history: History of present illness: Mr. Escudero is a 74 year old M with a history of hypertension presents to the ER following a fall on his right hip. Patient was carrying a load on his pickup truck when the tailgate gave way and slammed his arm was in him to slip and fall on the ground. Patient was brought to the ER. Initial work-up was consistent with subtrochanteric right hip fracture. Orthopedics was consulted and recommended follow-up on Friday for operative intervention. However due to significant pain patient request admission. 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 Case was discussed by ER physician with interventional radiology who recommended outpatient follow-up for evaluation and subsequently hospitalist service was consulted for pain management. Patient received his usual dose of medication including amlodipine lisinopril due to elevated blood pressure around 160s. At the time of my evaluation patient is alert and oriented. History as above. Denies lightheaded dizziness chest pain or palpitation or shortness of breath. Denies lower back pain but endorses to significant right hip and groin pain. 10/21-patient doing a lot better. However overnight remains in pain. On antihypertensives. Blood pressure around 150 this morning. Per Ortho recommendations patient can be weightbearing as tolerated. Physical therapy ongoing. White count 11.3. 10/22-patient continues to experience pain in very concerned about gait instabilit y. Spouse at bedside. We will continue pain management/PT OT until patient undergoes surgery. Tolerating diet. No signs of alcohol withdrawal this morning. Lucid alert. On twice a day oral alcohol. Blood pressures at goal. No abdominal pain 10/23-patient doing well. Pain well controlled. Continuing home medications. Stable labs and hemodynamics. Sodium down to 120. Check urine and serum osmolarity. Continue salt tabs/free water restriction. 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 Every 4 sodium checks. 10/24-patient will undergo right hip surgical repair this afternoon. Sodium improved to 126 from a low of 117. Secondary to pain induced ADH release consistent with a urine osmolality 349. Continue free water restriction/salt tabs. Will review postoperatively. Pain in good control. 10/25 Status post ORIF last evening and intraoperatively had episodes of mild hypotension and also was given blood transfusion. Slept well. No new complaints this morning has a little bit of cough she has had for a few days. Oxygenating better. 10/26 Confusion last night. Increase oxygen need earlier this morning. Chest x-ray pulmonary edema. Lasix ordered. Patient on oxygen mask 10 L, as needed BiPAP. For bedside. Patient able answer questions appropriately. 10/27 But better and feeling better. On room air this morning. at bedside. Awaiting echo results. Saturated dressing over incision site. Denies shortness of breath or coughing this morning. 10/28 Patient was put on 1 L of oxygen at night while he was sleeping but then taken off while he was awake this morning with good oxygenation. Patient does feel better. His cough is less frequent and is more dry. Does not feel any shortness of breath at the moment. Today's labs either unremarkable or improved. 10/29 Slept well and feeling better. Occasional cough with some phlegm. He says his shortness of breath is improving. No new complaints. Is on room air. Likely discharge to have on Friday. Review of Systems: denies headache/fever/chills/nausea/vomiting/chest or abdominal pain/diarrhea. Otherwise see above. Constitutional Vitals: Vital Signs Temp Pulse Resp BP Pulse Ox 98.5 F 84 18 187/91 96 10/30/19 07:59 10/30/19 07:59 10/30/19 07:59 10/30/19 07:59 10/30/19 07:59 Period Temp Pulse Resp BP Sys/Castro Pulse Ox Last 24 Hr 98.4 F-98.9 F 67-95 16-20 101-187/56-91 91-98 Intake and Output 10/29/19 10/30/19 10/30/19 21:59 05:59 13:59 Intake Total 960 660 Output Total 500 225 Balance 460 435 Weight 88.813 kg Intake & Output: Intake & Output 10/29/19 10/30/19 10/30/19 21:59 05:59 13:59 Intake Total 960 660 Output Total 500 225 Balance 460 435 Weight 88.813 kg Intake: Oral 960 660 Output: Void Amount 500 225 Other: Urine Appearance Clear Urine Color Light [place] Dark Yellow Urine Odor Normal Stool Size Copious Stool Color Brown Stool Consistency Normal for Patient Formed Exam: General: Alert, Awake, No acute Distress Eyes/N/T: EOMI, Head/Neck: neck supple, CV: irreg irreg, No murmurs, Pulm: b/l rhonchi much improved, mild wheezing, peripheral bronchial sounds Abd: soft, nontender, +BS x4 Ext: no clubbing/cyanosis/edema, right hip in dressings Neuro: Alert, no focal deficits, moves all extremities, Skin: warm/dry OBJ DATA Labs CBC & Chem 7: 10/29/19 07:35 10/30/19 05:05 Labs: Abnormal Lab Results 10/30/19 10/29/19 10/29/19 05:05 07:35 07:35 RBC 3.15 L Hgb 10.5 L Hct 30.9 L Lymph % (Auto) 14.2 L Lymph # (Auto) 1.31 L [place] # (Auto) 1.00 H Sodium Potassium Carbon Dioxide 21 L Creatinine 0.6 L Glucose 115 H Calcium Total Bilirubin Direct Bilirubin NT-Pro-B Natriuret Pep 8270.0 H Total Protein Albumin 10/29/19 10/28/19 10/27/19 04:53 04:50 10:22 RBC Hgb Hct Lymph % (Auto) Lymph # (Auto) [place] # (Auto) Sodium 132 L Potassium 3.0 L Carbon Dioxide 20 L Creatinine 0.6 L 0.6 L Glucose 115 H 111 H Calcium 8.2 L Total Bilirubin 1.2 H Direct Bilirubin 0.4 H NT-Pro-B Natriuret Pep 10860.0 H Total Protein 5.1 L Albumin 2.8 L Meds: Medications Acetaminophen (Tylenol) 1,000 mg PO Q8 [facility]; Protocol Last Admin: 10/30/19 06:09 Dose: 1,000 mg Documented by: Albuterol/Ipratropium (Duoneb) 3 ml NEB Q4HP PRN PRN Reason: Shortness Of Breath Apixaban (Eliquis) 2.5 mg PO BID [facility] Last Admin: 10/29/19 20:19 Dose: 2.5 mg Documented by: Benzonatate (Tessalon) 200 mg PO TIDP PRN PRN Reason: Cough Last Admin: 10/28/19 17:34 Dose: 200 mg Documented by: Bisacodyl (Dulcolax) 10 mg CO Q2-3DAYS PRN PRN Reason: Constipation [facility] Last Admin: 10/29/19 08:11 Dose: 12.5 mg Documented by: Docusate Sodium (Colace) 100 mg PO BID [facility] Last Admin: 10/29/19 20:17 Dose: 100 mg Documented by: Hydralazine HCl (Apresoline) 20 mg IV Q4-6HP PRN PRN Reason: hypertension over 150 Acetaminophen (Ofirmev) 650 mg in 65 mls @ 130 mls/hr IV Q6HP PRN; Protocol PRN Reason: Per Pain Protocol/Fever > 101 Magnesium Sulfate (Magnesium Sulfate) 2 gm in 50 mls @ 50 mls/hr IV UD PRN PRN Reason: MG = or < 1.7 Labetalol HCl (Trandate) 0 mg IV Q2HP PRN PRN Reason: Hypertension Melatonin (Melatonin 3mg Tablet) 3 mg PO [facility] Last Admin: 10/29/19 20:18 Dose: 3 mg Documented by: Methocarbamol (Robaxin) 750 mg PO TIDP PRN PRN Reason: Muscle Spasm Last Admin: 10/29/19 20:18 Dose: 750 mg Documented by: Nicotine (Nicoderm) 21 mg TOPICAL DAILY@1000 [facility] Last Admin: 10/29/19 10:43 Dose: 21 mg Documented by: Olanzapine (Zyprexa) 5 mg PO BID PRN PRN Reason: Agitation Last Admin: 10/29/19 08:11 Dose: 5 mg Documented by: Ondansetron HCl (Zofran Odt) 4 mg SL Q4-6HP PRN; Protocol PRN Reason: Nausea And Vomiting Ondansetron HCl (Zofran) 4 mg IV Q4-6HP PRN; Protocol PRN Reason: Nausea And Vomiting Oxycodone HCl (Roxicodone) 0 mg PO Q4HP PRN; Protocol PRN Reason: Per Pain Protocol Last Admin: 10/29/19 20:17 Dose: 10 mg Documented by: Polyethylene Glycol (Miralax) 17 gm PO DAILYP PRN PRN Reason: Constipation Potassium Chloride (Klor-Con) 40 meq PO DAILYP PRN PRN Reason: K+ < 3.5 Promethazine HCl (Phenergan) 6.25 mg IV Q4HP PRN PRN Reason: Nausea And Vomiting Senna (Senokot) 2 tab PO [facility] Last Admin: 10/29/19 20:18 Dose: 2 tab Documented by: Sodium Biphosphate/Sodium Phosphate (Fleets Adult) 1 dose CO Q3-4DAYS PRN PRN Reason: Constipation Sodium Chloride (Saline Flush) 10 ml IV Q8 [facility] Last Admin: 10/30/19 06:09 Dose: 10 ml Documented by: Tamsulosin HCl (Flomax) 0.4 mg PO [facility] Last Admin: 10/29/19 20:18 Dose: 0.4 mg Documented by: Throat Lozenges (Cepacol) 1 lozenge PO PRN PRN PRN Reason: Sore Throat A/P Narrative A/P Narrative: A: *Right hip fracture: s/p ORIF (10/24) -Preoperative risk evaluation-based on RCRI [place] [employer] risk stratification patient is a high risk overall candidate for immediate postoperative and intraoperative morbidity/mortality/ACS/CVA based on surgery specific risk. -Patient is aware of the risks of going to surgery. However surgery and anesthesia specific risks will be discussed by individual care provider. 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 Size 3.5 cm without evidence of malperfusion. 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 -IMproved *Acute on likely chronic Diastolic CHF: improved -echo EF wnl, severely dilated b/l atria *acute Hypoxic Resp failure: 2/2 above -covid neg on 10/23 -now on room air *Delerium: resolved *HTN: cont home ACEI/BB/ needed hydralazine. *AFib(new): -CHADSVASC=2 *Generalized weakness/deconditioning/debility: Plan: -prn IV lasix, monitor i/o -Hip per Ortho -Continue free water restriction, -Pain management -IS/Acapella, supp O2 prn -cont BB/ACEI -Outpatient interventional radiology follow-up referral for aortic dissection -f/u with cardio for afib - for SNF on friday -ppx: post-op ortho eliquis and has afib full code Time Spent With Patient Time: Total time spent is greater than 50% in coordination of care (as documented) at patient's floor/unit and/or counseling patient: QUALITY VTE Deep Vein Thrombosis/Pulmonary Embolism Present on Admission: No
--- NOTE | 2019-10-30 09:25 | Orthopedic Progress Note ---
SUBJECTIVE Subjective Patient information: Note initiated : 10/30/19 at 9:22 am Service Date, if different from initiated Date: [] Patient: Pedrito Escudero 74 y/o M admitted on 10/21/19 for R hip pain, Ground level fall. Chief Complaint: [less pain and is alert and gives a good account of events and is planning on snf on friday his extended care is due to etoh withdrawal] Constitutional Vitals: Vital Signs Temp Pulse Resp BP Pulse Ox 98.5 F 84 18 187/91 96 10/30/19 07:59 10/30/19 07:59 10/30/19 07:59 10/30/19 07:59 10/30/19 07:59 Period Temp Pulse Resp BP Sys/Castro Pulse Ox Last 24 Hr 98.4 F-98.9 F 67-95 - 101-187/56-91 91-98 Intake and Output 10/29/19 10/30/19 10/30/19 21:59 05:59 13:59 Intake Total 960 660 640 Output Total 500 225 250 Balance 460 435 390 Weight 195 lb 12.8 oz Intake & Output: Intake & Output 10/29/19 10/30/19 10/30/19 21:59 05:59 13:59 Intake Total 960 660 640 Output Total 500 225 250 Balance 460 435 390 Weight 195 lb 12.8 oz Intake: Oral 960 660 640 Output: Void Amount 500 225 250 Other: Meal Breakfast Percent of Meal Consumed 100% Urine Appearance Clear Urine Color Light Makayla Dark Yellow Urine Odor Normal Stool Size Copious Stool Color Brown Stool Consistency Normal for Patient Formed OBJ DATA Labs CBC & Chem 7: 10/29/19 07:35 10/30/19 05:05 Labs: Abnormal Lab Results 10/30/19 10/29/19 10/29/19 05:05 07:35 07:35 RBC 3.15 L Hgb 10.5 L Hct 30.9 L Lymph % (Auto) 14.2 L Lymph # (Auto) 1.31 L [place] # (Auto) 1.00 H Sodium Potassium Carbon Dioxide 21 L Creatinine 0.6 L Glucose 115 H Calcium Total Bilirubin Direct Bilirubin NT-Pro-B Natriuret Pep 8270.0 H Total Protein Albumin 10/29/19 10/28/19 10/27/19 04:53 04:50 10:22 RBC Hgb Hct Lymph % (Auto) Lymph # (Auto) [place] # (Auto) Sodium 132 L Potassium 3.0 L Carbon Dioxide 20 L Creatinine 0.6 L 0.6 L Glucose 115 H 111 H Calcium 8.2 L Total Bilirubin 1.2 H Direct Bilirubin 0.4 H NT-Pro-B Natriuret Pep 76187.0 H Total Protein 5.1 L Albumin 2.8 L Meds: Medications Acetaminophen (Tylenol) 1,000 mg PO Q8 [facility]; Protocol Last Admin: 10/30/19 06:09 Dose: 1,000 mg Documented by: Albuterol/Ipratropium (Duoneb) 3 ml NEB Q4HP PRN PRN Reason: Shortness Of Breath Apixaban (Eliquis) 2.5 mg PO BID [facility] Last Admin: 10/29/19 20:19 Dose: 2.5 mg Documented by: Benzonatate (Tessalon) 200 mg PO TIDP PRN PRN Reason: Cough Last Admin: 10/28/19 17:34 Dose: 200 mg Documented by: Bisacodyl (Dulcolax) 10 mg [place] Q2-3DAYS PRN PRN Reason: Constipation Carvedilol (Coreg) 12.5 mg PO [facility] Last Admin: 10/29/19 08:11 Dose: 12.5 mg Documented by: Docusate Sodium (Colace) 100 mg PO BID [facility] Last Admin: 10/29/19 20:17 Dose: 100 mg Documented by: Hydralazine HCl (Apresoline) 20 mg IV Q4-6HP PRN PRN Reason: hypertension over 150 Acetaminophen (Ofirmev) 650 mg in 65 mls @ 130 mls/hr IV Q6HP PRN; Protocol PRN Reason: Per Pain Protocol/Fever > 101 Magnesium Sulfate (Magnesium Sulfate) 2 gm in 50 mls @ 50 mls/hr IV UD PRN PRN Reason: MG = or < 1.7 Labetalol HCl (Trandate) 0 mg IV Q2HP PRN PRN Reason: Hypertension Lisinopril (Zestril) 10 mg PO DAILY [facility] Melatonin (Melatonin 3mg Tablet) 3 mg PO [facility] Last Admin: 10/29/19 20:18 Dose: 3 mg Documented by: Methocarbamol (Robaxin) 750 mg PO TIDP PRN PRN Reason: Muscle Spasm Last Admin: 10/29/19 20:18 Dose: 750 mg Documented by: Nicotine (Nicoderm) 21 mg TOPICAL DAILY@1000 [facility] Last Admin: 10/29/19 10:43 Dose: 21 mg Documented by: Olanzapine (Zyprexa) 5 mg PO BID PRN PRN Reason: Agitation Last Admin: 10/29/19 08:11 Dose: 5 mg Documented by: Ondansetron HCl (Zofran Odt) 4 mg SL Q4-6HP PRN; Protocol PRN Reason: Nausea And Vomiting Ondansetron HCl (Zofran) 4 mg IV Q4-6HP PRN; Protocol PRN Reason: Nausea And Vomiting Oxycodone HCl (Roxicodone) 0 mg PO Q4HP PRN; Protocol PRN Reason: Per Pain Protocol Last Admin: 10/29/19 20:17 Dose: 10 mg Documented by: Polyethylene Glycol (Miralax) 17 gm PO DAILYP PRN PRN Reason: Constipation Potassium Chloride (Klor-Con) 40 meq PO DAILYP PRN PRN Reason: K+ < 3.5 Promethazine HCl (Phenergan) 6.25 mg IV Q4HP PRN PRN Reason: Nausea And Vomiting Senna (Senokot) 2 tab PO [facility] Last Admin: 10/29/19 20:18 Dose: 2 tab Documented by: Sodium Biphosphate/Sodium Phosphate (Fleets Adult) 1 dose [place] Q3-4DAYS PRN PRN Reason: Constipation Sodium Chloride (Saline Flush) 10 ml IV Q8 [facility] Last Admin: 10/30/19 06:09 Dose: 10 ml Documented by: Tamsulosin HCl (Flomax) 0.4 mg PO [facility] Last Admin: 10/29/19 20:18 Dose: 0.4 mg Documented by: Throat Lozenges (Cepacol) 1 lozenge PO PRN PRN PRN Reason: Sore Throat A/P Narrative A/P Narrative: dc on friday and doing very well with hip fx and etoh withdrawal Time Spent With Patient Time: Total time spent is greater than 50% in coordination of care (as documented) at patient's floor/unit and/or counseling patient: Total time spent with greater than 50% in coordination of care (as documented) at patient's floor/unit and/or counseling patient:: 15 - 24 minutes
[2019-10-30] MEDS: CARVEDILOL 12.5 MG TABLET PO SCH (09:48)
[2019-10-30] MEDS: APIXABAN 5 MG TABLET PO SCH ×2 (09:49→22:02)
[2019-10-30] MEDS: DOCUSATE SODIUM 100 MG CAPSULE PO SCH ×2 (09:50→22:01)
[2019-10-30] MEDS: NICOTINE 21 MG PATCH TOPICAL SCH (09:50)
[2019-10-30] MEDS: LISINOPRIL 10 MG TABLET PO SCH (09:50)
[2019-10-30] MEDS: oxyCODONE HCL 5 MG TABLET PO PRN ×3 (09:57→19:41)
[2019-10-30] MEDS: OLANZapine 5 MG TABLET PO PRN ×2 (16:34→22:03)
[2019-10-30] MEDS: hydrALAZINE 20 MG/ML VIAL IV PRN (18:05)
[2019-10-30] MEDS: SENNOSIDES 1 TABLET PO SCH (22:01)
[2019-10-30] MEDS: METHOCARBAMOL 750 MG TABLET PO PRN (22:02)
[2019-10-30] MEDS: MELATONIN 3 MG TABLET PO SCH (22:03)
[2019-10-30] MEDS: TAMSULOSIN 0.4 MG CAPSULE PO SCH (22:03)
[2019-10-31] MEDS: oxyCODONE HCL 5 MG TABLET PO PRN ×3 (00:22→21:16)
[2019-10-31] MEDS: 0.9 % SODIUM CHLORIDE 10 ML SYRINGE IV SCH ×3 (06:21→21:15)
[2019-10-31] MEDS: ACETAMINOPHEN 500 MG TABLET PO SCH ×3 (06:22→21:20)
[2019-10-31] MEDS: DOCUSATE SODIUM 100 MG CAPSULE PO SCH ×2 (08:38→21:17)
[2019-10-31] MEDS: NICOTINE 21 MG PATCH TOPICAL SCH (08:38)
[2019-10-31] MEDS: APIXABAN 5 MG TABLET PO SCH ×2 (08:38→21:16)
[2019-10-31] MEDS: LISINOPRIL 10 MG TABLET PO SCH (08:39)
[2019-10-31] MEDS: CARVEDILOL 12.5 MG TABLET PO SCH ×3 (08:39→21:18)
[2019-10-31] MEDS ORDERED: amLODIPine 5 MG TABLET PO SCH (09:00)
[2019-10-31] MEDS ORDERED: amLODIPine 5 MG TABLET PO ONE (15:24)
--- NOTE | 2019-10-31 15:38 | Internal Med Progress Note ---
SUBJECTIVE Subjective Patient information: Note initiated : 10/31/19 at 3:25 pm Service Date, if different from initiated Date: [] Patient: Pedrito Escudero a 74 y/o M admitted on 10/21/19 for R hip pain, Ground level fall. Chief Complaint: [] Interval history: History of present illness: Mr. Escudero is a 74 year old M with a history of hypertension presents to the ER following a fall on his right hip. Patient was carrying a load on his pickup truck when the tailgate gave way and slammed his arm was in him to slip and fall on the ground. Patient was brought to the ER. Initial work-up was consistent with subtrochanteric right hip fracture. Orthopedics was consulted and recommended follow-up on Friday for operative intervention. However due to significant pain patient request admission. 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 Case was discussed by ER physician with interventional radiology who recommended outpatient follow-up for evaluation and subsequently hospitalist service was consulted for pain management. Patient received his usual dose of medication including amlodipine lisinopril due to elevated blood pressure around 160s. At the time of my evaluation patient is alert and oriented. History as above. Denies lightheaded dizziness chest pain or palpitation or shortness of breath. Denies lower back pain but endorses to significant right hip and groin pain. 10/21-patient doing a lot better. However overnight remains in pain. On antihypertensives. Blood pressure around 150 this morning. Per Ortho recomme ndations patient can be weightbearing as tolerated. Physical therapy ongoing. White count 11.3. 10/22-patient continues to experience pain in very concerned about gait instability. Spouse at bedside. We will continue pain management/PT OT until patient undergoes surgery. Tolerating diet. No signs of alcohol withdrawal this morning. Lucid alert. On twice a day oral alcohol. Blood pressures at goal. No abdominal pain 10/23-patient doing well. Pain well controlled. Continuing home medications. Stable labs and hemodynamics. Sodium down to 120. Check urine and serum osmolarity. Continue salt tabs/free water restriction. 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 Every 4 sodium checks. 10/24-patient will undergo right hip surgical repair this afternoon. Sodium improved to 126 from a low of 117. Secondary to pain induced ADH release consistent with a urine osmolality 349. Continue free water restriction/salt tabs. Will review postoperatively. Pain in good control. 10/25 Status post ORIF last evening and intraoperatively had episodes of mild hypotension and also was given blood transfusion. Slept well. No new complaints this morning has a little bit of cough she has had for a few days. Oxygenating better. 10/26 Confusion last night. Increase oxygen need earlier this morning. Chest x-ray pulmonary edema. Lasix ordered. Patient on oxygen mask 10 L, as needed BiPAP. For bedside. Patient able answer questions appropriately. 10/27 But better and feeling better. On room air this morning. at bedside. Awaiting echo results. Saturated dressing over incision site. Denies shortness of breath or coughing this morning. 10/28 Patient was put on 1 L of oxygen at night while he was sleeping but then taken off while he was awake this morning with good oxygenation. Patient does feel better. His cough is less frequent and is more dry. Does not feel any shortness of breath at the moment. Today's labs either unremarkable or improved. 10/29 Slept well and feeling better. Occasional cough with some phlegm. He says his shortness of breath is improving. No new complaints. Is on room air. Likely discharge to have on Friday. 10/30 Pt does not have any new complaints. His blood pressure is not well controlled. I told him that he would possibly be discharged to [facility] tomorrow. He is happy with this. Review of Systems: denies headache/fever/chills/nausea/vomiting/chest or abdominal pain/diarrhea. Otherwise see above. Constitutional Vitals: Vital Signs Temp Pulse Resp BP Pulse Ox 98.6 F 85 18 160/86 95 10/31/19 12:00 10/31/19 12:00 10/31/19 12:00 10/31/19 12:10/31/19 12:00 Period Temp Pulse Resp BP Sys/Castro Pulse Ox Last 24 Hr 97.4 F-99.2 F 74-89 16-18 140-174/77-92 93-98 Intake and Output 10/31/19 10/31/19 10/31/19 05:59 13:59 21:59 Intake Total 600 240 360 Output Total 350 250 Balance 250 -10 360 Intake & Output: Intake & Output 10/31/19 10/31/19 10/31/19 05:59 13:59 21:59 Intake Total 600 240 360 Output Total 350 250 Balance 250 -10 360 Intake: Oral 600 240 360 Output: Void Amount 350 250 Other: Meal Breakfast Lunch Percent of Meal Consumed 75% 100% Feeding Ability Independent Independent Urine Appearance Clear Clear Urine Color Dark Yellow Dark Makayla Urine Odor Normal Additional findings Additional findings: General: Alert, Awake, No acute Distress Eyes/N/T: EOMI, Head/Neck: neck supple, CV: irreg irreg, No murmurs, Pulm: b/l rhonchi much improved, mild wheezing, peripheral bronchial sounds Abd: soft, nontender, +BS x4 Ext: no clubbing/cyanosis/edema, right hip in dressings Neuro: Alert, no focal deficits, moves all extremities, Skin: warm/dry OBJ DATA Labs CBC & Chem 7: 10/29/19 07:35 10/30/19 05:05 Labs: Abnormal Lab Results 10/30/19 10/29/19 10/29/19 05:05 07:35 07:35 RBC 3.15 L Hgb 10.5 L Hct 30.9 L Lymph % (Auto) 14.2 L Lymph # (Auto) 1.31 L [place] # (Auto) 1.00 H Carbon Dioxide 21 L Creatinine 0.6 L Glucose 115 H NT-Pro-B Natriuret Pep 8270.0 H 10/29/19 04:53 RBC Hgb Hct Lymph % (Auto) Lymph # (Auto) [place] # (Auto) Carbon Dioxide Creatinine 0.6 L Glucose 115 H NT-Pro-B Natriuret Pep Meds: Medications Acetaminophen (Tylenol) 1,000 mg PO Q8 [facility]; Protocol Last Admin: 10/31/19 14:32 Dose: 1,000 mg Documented by: Albuterol/Ipratropium (Duoneb) 3 ml NEB Q4HP PRN PRN Reason: Shortness Of Breath Amlodipine Besylate (Norvasc) 10 mg PO DAILY [facility] Amlodipine Besylate (Norvasc) 5 mg PO ONCE ONE Stop: 10/31/19 15:25 Apixaban (Eliquis) 2.5 mg PO BID [facility] Last Admin: 10/31/19 08:38 Dose: 2.5 mg Documented by: Benzonatate (Tessalon) 200 mg PO TIDP PRN PRN Reason: Cough Last Admin: 10/28/19 17:34 Dose: 200 mg Documented by: Bisacodyl (Dulcolax) 10 mg [place] Q2-3DAYS PRN PRN Reason: Constipation Carvedilol (Coreg) 12.5 mg PO BID [facility] Last Admin: 10/31/19 09:06 Dose: Not Given Documented by: Docusate Sodium (Colace) 100 mg PO BID [facility] Last Admin: 10/31/19 08:38 Dose: 100 mg Documented by: Hydralazine HCl (Apresoline) 20 mg IV Q4-6HP PRN PRN Reason: hypertension over 150 Last Admin: 10/30/19 18:05 Dose: 20 mg Documented by: Acetaminophen (Ofirmev) 650 mg in 65 mls @ 130 mls/hr IV Q6HP PRN; Protocol PRN Reason: Per Pain Protocol/Fever > 101 Magnesium Sulfate (Magnesium Sulfate) 2 gm in 50 mls @ 50 mls/hr IV UD PRN PRN Reason: MG = or < 1.7 Labetalol HCl (Trandate) 0 mg IV Q2HP PRN PRN Reason: Hypertension Lisinopril (Zestril) 10 mg PO DAILY [facility] Last Admin: 10/31/19 08:39 Dose: 10 mg Documented by: Melatonin (Melatonin 3mg Tablet) 3 mg PO HS [facility] Last Admin: 10/30/19 22:03 Dose: 3 mg Documented by: Methocarbamol (Robaxin) 750 mg PO TIDP PRN PRN Reason: Muscle Spasm Last Admin: 10/30/19 22:02 Dose: 750 mg Documented by: Nicotine (Nicoderm) 21 mg TOPICAL DAILY@1000 [facility] Last Admin: 10/31/19 08:38 Dose: 21 mg Documented by: Olanzapine (Zyprexa) 5 mg PO BID PRN PRN Reason: Agitation Last Admin: 10/30/19 22:03 Dose: 5 mg Documented by: Ondansetron HCl (Zofran Odt) 4 mg SL Q4-6HP PRN; Protocol PRN Reason: Nausea And Vomiting Ondansetron HCl (Zofran) 4 mg IV Q4-6HP PRN; Protocol PRN Reason: Nausea And Vomiting Oxycodone HCl (Roxicodone) 0 mg PO Q4HP PRN; Protocol PRN Reason: Per Pain Protocol Last Admin: 10/31/19 11:05 Dose: 5 mg Documented by: Polyethylene Glycol (Miralax) 17 gm PO DAILYP PRN PRN Reason: Constipation Potassium Chloride (Klor-Con) 40 meq PO DAILYP PRN PRN Reason: K+ < 3.5 Last Admin: 10/30/19 12:46 Dose: 40 meq Documented by: Promethazine HCl (Phenergan) 6.25 mg IV Q4HP PRN PRN Reason: Nausea And Vomiting Senna (Senokot) 2 tab PO [facility] Last Admin: 10/30/19 22:01 Dose: Not Given Documented by: Sodium Biphosphate/Sodium Phosphate (Fleets Adult) 1 dose [place] Q3-4DAYS PRN PRN Reason: Constipation Sodium Chloride (Saline Flush) 10 ml IV Q8 [facility] Last Admin: 10/31/19 14:33 Dose: 10 ml Documented by: Tamsulosin HCl (Flomax) 0.4 mg PO [facility] Last Admin: 10/30/19 22:03 Dose: 0.4 mg Documented by: Throat Lozenges (Cepacol) 1 lozenge PO PRN PRN PRN Reason: Sore Throat A/P Narrative A/P Narrative: *Right hip fracture: s/p ORIF (10/24) -Preoperative risk evaluation-based on RCRI [employer] [employer] risk stratification patient is a high risk overall candidate for immediate postope rative and intraoperative morbidity/mortality/ACS/CVA based on surgery specific risk. -Patient is aware of the risks of going to surgery. However surgery and anesthesia specific risks will be discussed by individual care provider. 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 Size 3.5 cm without evidence of malperfusion. 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 -IMproved *Acute on likely chronic Diastolic CHF: improved -echo EF wnl, severely dilated b/l atria *acute Hypoxic Resp failure: 2/2 above -covid neg on 10/23 -now on room air *Delerium: resolved *HTN: cont home ACEI/BB/ needed hydralazine. *AFib(new): -CHADSVASC=2 -on Eliquis *Generalized weakness/deconditioning/debility: *HTN Plan: -prn IV lasix, monitor i/o -Hip per Ortho -Continue free water restriction, -Pain management -IS/Acapella, supp O2 prn -cont BB/ACEI -Outpatient interventional radiology follow-up referral -f/u with cardio for afib and CHF -CM for SNF on friday -ppx: post-op ortho eliquis and has afib -increased carvedilol and added amlodipine for poorly controlled BP full code Deposition: SNF, tomorrow? f/u pcp, cardiology for CHF and atrial fib, Dr. Resendiz and orth Dr. Coronel Free water restriction Time Spent With Patient Time: Total time spent is greater than 50% in coordination of care (as documented) at patient's floor/unit and/or counseling patient: QUALITY VTE Deep Vein Thrombosis/Pulmonary Embolism Present on Admission: No
[2019-10-31] MEDS: MELATONIN 3 MG TABLET PO SCH (21:17)
[2019-10-31] MEDS: BENZONATATE 100 MG CAPSULE PO PRN (21:17)
[2019-10-31] MEDS: TAMSULOSIN 0.4 MG CAPSULE PO SCH (21:18)
[2019-10-31] MEDS: SENNOSIDES 1 TABLET PO SCH (21:18)
[2019-11-01] MEDS: hydrALAZINE 20 MG/ML VIAL IV PRN (00:23)
[2019-11-01] MEDS: BENZONATATE 100 MG CAPSULE PO PRN (02:24)
[2019-11-01] MEDS: 0.9 % SODIUM CHLORIDE 10 ML SYRINGE IV SCH ×2 (05:57→13:17)
[2019-11-01] MEDS: ACETAMINOPHEN 500 MG TABLET PO SCH ×2 (05:57→13:16)
[2019-11-01 06:14] LABS: Basophils # (Auto) 0.06 K/mcL (0.00-0.30); Basophils % (Auto) 0.7 % (0.0-2.0); Eosinophils # (Auto) 0.32 K/mcL (0.00-0.70); Eosinophils % (Auto) 3.8 % (0.0-7.0); Hematocrit 31.2 % (40.1-51.0); Hemoglobin 10.4 g/dL (13.7-17.5); Lymphocytes # (Auto) 1.61 K/mcL (1.50-4.80); Lymphocytes % (Auto) 18.9 % (15.5-49.0); Mean Cell Volume 97.5 fL (80.0-100.0); Mean Corpuscular HGB Conc 33.3 g/dL (31.0-36.0); Mean Platelet Volume 9.1 fL (7.4-10.4); Monocytes # (Auto) 0.82 K/mcL (0.10-0.90); Monocytes % (Auto) 9.6 % (1.0-12.0); Platelet Count 340 K/mcL (140-440); Red Cell Distribution Width 12.9 % (11.5-14.5); WBC 8.5 K/mcL (4.50-11.00)
[2019-11-01 06:23] LABS: ALT/SGPT 21 U/l (0-40); AST/SGOT 23 U/l (0-37); Albumin 3.2 gm/dL (3.2-5.2); Albumin/Globulin Ratio 1.2 (1.0-2.3); Alkaline Phosphatase 53 U/L (39-117); Bilirubin,Total 1.3 mg/dL (0.0-1.0); Blood Urea Nitrogen 14 mg/dl (8-23); Calcium 8.5 mg/dl (8.6-10.4); Carbon Dioxide 20 mmol/L (22-30); Chloride 101 mmol/L (96-108); Globulin 2.7 gm/dL (2.2-3.7); Glomerular Filtration Rate 94; Glucose 103 mg/dL (70-105)
[2019-11-01] MEDS: DOCUSATE SODIUM 100 MG CAPSULE PO SCH (07:58)
[2019-11-01] MEDS: LISINOPRIL 10 MG TABLET PO SCH (07:59)
[2019-11-01] MEDS: APIXABAN 5 MG TABLET PO SCH (07:59)
[2019-11-01] MEDS ORDERED: CARVEDILOL 12.5 MG TABLET PO SCH (08:00)
--- NOTE | 2019-11-01 08:03 | Orthopedic Progress Note ---
SUBJECTIVE Subjective Patient information: Note initiated : 11/01/19 at 7:56 am Service Date, if different from initiated Date: [] Patient: Pedrito Escudero 74 y/o M admitted on 10/21/19 for R hip pain, Ground level fall. Chief Complaint: [POD 7 s/p right hip periprosthetic greater trochanteric femur ORIF. Doing ok and continues to improve. Pain is controlled. Tolerating an oral diet. Denies Chest pain.] Constitutional Vitals: Vital Signs Temp Pulse Resp BP Pulse Ox 99.1 F H 70 18 142/80 96 11/01/19 07:24 11/01/19 07:24 11/01/19 07:24 11/01/19 07:24 11/01/19 07:24 Period Temp Pulse Resp BP Sys/Castro Pulse Ox Last 24 Hr 97.4 F-99.1 F 57-85 18-18 106-174/69-88 94-98 Intake and Output 10/31/19 11/01/19 11/01/19 21:59 05:59 13:59 Intake Total 600 560 Output Total 650 200 Balance -50 360 Weight 196 lb 1.6 oz Intake & Output: Intake & Output 10/31/19 11/01/19 11/01/19 21:59 05:59 13:59 Intake Total 600 560 Output Total 650 200 Balance -50 360 Weight 196 lb 1.6 oz Intake: Oral 600 560 Output: Void Amount 650 200 Other: Meal Dinner Percent of Meal Consumed 100% Feeding Ability Independent Urine Appearance Clear Clear Urine Color Dark Yellow Dark Yellow Urine Odor Normal Exam: Right hip: silver dressing in place with 2/3 of it saturated. more inferior portion appears a new. Not concerned for infection but does have swelling over lateral aspect of hip and thigh which is expected given surgery. NVIT distally. OBJ DATA Labs CBC & Chem 7: 11/01/19 05:00 11/01/19 05:00 Labs: Abnormal Lab Results 11/01/19 11/01/19 10/30/19 05:00 05:00 05:05 RBC 3.20 L Hgb 10.4 L Hct 31.2 L Lymph % (Auto) Lymph # (Auto) [place] # (Auto) Carbon Dioxide 20 L 21 L Creatinine 0.6 L Glucose 115 H Calcium 8.5 L Total Bilirubin 1.3 H NT-Pro-B Natriuret Pep 08/14/20 08/14/20 07:35 07:35 RBC 3.15 L Hgb 10.5 L Hct 30.9 L Lymph % (Auto) 14.2 L Lymph # (Auto) 1.31 L [place] # (Auto) 1.00 H Carbon Dioxide Creatinine Glucose Calcium Total Bilirubin NT-Pro-B Natriuret Pep 8270.0 H Meds: Medications Acetaminophen (Tylenol) 1,000 mg PO Q8 [facility]; Protocol Last Admin: 11/01/19 05:57 Dose: 1,000 mg Documented by: Albuterol/Ipratropium (Duoneb) 3 ml NEB Q4HP PRN PRN Reason: Shortness Of Breath Amlodipine Besylate (Norvasc) 10 mg PO DAILY [facility] Apixaban (Eliquis) 2.5 mg PO BID [facility] Last Admin: 10/31/19 21:16 Dose: 2.5 mg Documented by: Benzonatate (Tessalon) 200 mg PO TIDP PRN PRN Reason: Cough Last Admin: 11/01/19 02:24 Dose: 200 mg Documented by: Bisacodyl (Dulcolax) 10 mg [place] Q2-3DAYS PRN PRN Reason: Constipation [facility] Last Admin: 11/01/19 07:41 Dose: 12.5 mg Documented by: Docusate Sodium (Colace) 100 mg PO BID [facility] Last Admin: 10/31/19 21:17 Dose: 100 mg Documented by: Hydralazine HCl (Apresoline) 20 mg IV Q4-6HP PRN PRN Reason: hypertension over 150 Last Admin: 11/01/19 00:23 Dose: 20 mg Documented by: Acetaminophen (Ofirmev) 650 mg in 65 mls @ 130 mls/hr IV Q6HP PRN; Protocol PRN Reason: Per Pain Protocol/Fever > 101 Magnesium Sulfate (Magnesium Sulfate) 2 gm in 50 mls @ 50 mls/hr IV UD PRN PRN Reason: MG = or < 1.7 Labetalol HCl (Trandate) 0 mg IV Q2HP PRN PRN Reason: Hypertension Lisinopril (Zestril) 10 mg PO DAILY [facility] Last Admin: 10/31/19 08:39 Dose: 10 mg Documented by: Melatonin (Melatonin 3mg Tablet) 3 mg PO [facility] Last Admin: 10/31/19 21:17 Dose: 3 mg Documented by: Methocarbamol (Robaxin) 750 mg PO TIDP PRN PRN Reason: Muscle Spasm Last Admin: 10/30/19 22:02 Dose: 750 mg Documented by: Nicotine (Nicoderm) 21 mg TOPICAL DAILY@1000 [facility] Last Admin: 10/31/19 08:38 Dose: 21 mg Documented by: Olanzapine (Zyprexa) 5 mg PO BID PRN PRN Reason: Agitation Last Admin: 10/30/19 22:03 Dose: 5 mg Documented by: Ondansetron HCl (Zofran Odt) 4 mg SL Q4-6HP PRN; Protocol PRN Reason: Nausea And Vomiting Ondansetron HCl (Zofran) 4 mg IV Q4-6HP PRN; Protocol PRN Reason: Nausea And Vomiting Oxycodone HCl (Roxicodone) 0 mg PO Q4HP PRN; Protocol PRN Reason: Per Pain Protocol Last Admin: 10/31/19 21:16 Dose: 10 mg Documented by: Polyethylene Glycol (Miralax) 17 gm PO DAILYP PRN PRN Reason: Constipation Potassium Chloride (Klor-Con) 40 meq PO DAILYP PRN PRN Reason: K+ < 3.5 Last Admin: 10/30/19 12:46 Dose: 40 meq Documented by: Promethazine HCl (Phenergan) 6.25 mg IV Q4HP PRN PRN Reason: Nausea And Vomiting Senna (Senokot) 2 tab PO [facility] Last Admin: 10/31/19 21:18 Dose: 2 tab Documented by: Sodium Biphosphate/Sodium Phosphate (Fleets Adult) 1 dose [place] Q3-4DAYS PRN PRN Reason: Constipation Sodium Chloride (Saline Flush) 10 ml IV Q8 [facility] Last Admin: 11/01/19 05:57 Dose: 10 ml Documented by: Tamsulosin HCl (Flomax) 0.4 mg PO [facility] Last Admin: 10/31/19 21:18 Dose: 0.4 mg Documented by: Throat Lozenges (Cepacol) 1 lozenge PO PRN PRN PRN Reason: Sore Throat A/P Time Spent With Patient Time: POD 1 s/p right hip periprosthetic hip fracture ORIF doing ok. Extended stay secondary of respitory issues with a bit of confusion. Improving overall. - 50% weight bearing - posterior hip precautions x6 weeks - oral pain medis and diet - prophy- IS, ambulation/PT, eliquis, foot pumps - dispo: plan is for d/c to SNF today. will need f/u with orthopedics - Felecia Negron in 1 week.
--- NOTE | 2019-11-01 08:50 | XRay Report ---
INDICATION: febrile TECHNIQUE: AP portable upright chest x-ray COMPARISON: Previous chest x-ray dated 10/29/2019 FINDINGS: Lungs:Mild parenchymal density at the left lung base consistent with volume loss or pneumonia. Lungs are otherwise negative. No other focal pulmonary parenchymal abnormality. Heart, vascular:No significant cardiomegaly. Pulmonary vascularity is normal. No pulmonary edema or pulmonary congestion Mediastinum, bebeto:No mediastinal widening. No hilar mass Pleura:Previous PA and lateral chest x-ray demonstrated pleural fluid posteriorly. This is also demonstrated on previous abdominal and pelvic CT scan dated 10/28/2019. Pleural effusions are not well-visualized on this AP portable chest x-ray Skeletal:No detectable rib fractures. No lytic lesions. IMPRESSION: 1. Mild left basilar atelectasis or infiltrate 2. No other abnormality. Interpreted and Authenticated by: Kalyan Mc 11/01/19
[2019-11-01] MEDS ORDERED: amLODIPine 10 MG TABLET PO SCH (09:00)
[2019-11-01] MEDS: METHOCARBAMOL 750 MG TABLET PO PRN (09:51)
[2019-11-01] MEDS: NICOTINE 21 MG PATCH TOPICAL SCH (10:33)
[2019-11-01] MEDS: oxyCODONE HCL 5 MG TABLET PO PRN (12:39)
--- NOTE | 2019-11-01 13:33 | Discharge Summary ---
Discharge Provider Provider Patient information: Note initiated : 11/01/19 at 1:21 pm Service Date, if different from initiated Date: [] Patient: Pedrito Escudero 74 y/o M admitted on 10/21/19 for R hip pain, Ground level fall. Chief Complaint: [] Date of admission: 10/21/19 19:15 Discharge date: 11/01/19 Primary care physician: Dillan Jimenez Consults: 10/21/19 Consult to Physician [CONS] Stat Comment: Consulting Provider: Anatoliy Gaitan Reason For Exam: Physician to Consult Consult to Physician [CONS] Stat Comment: Consulting Provider: Raji Gregorio Reason For Exam: Physician to Consult Discharge Meds Discharge Medications Home Medications lisinopril 20 mg PO DAILY 03/14/15 [History Confirmed 10/21/19 Last Taken 10/21/19] hydrocodone-acetaminophen 1 tab PO Q4HP PRN #14 tab 10/23/19 [Rx Last Taken Unknown] methocarbamol 750 mg PO BIDP PRN #10 tab 10/23/19 [Rx Last Taken Unknown] amlodipine 10 mg PO DAILY #30 tab 11/01/19 [Rx Last Taken Unknown] apixaban [Eliquis] 2.5 mg PO BID #56 tab 11/01/19 [Rx Last Taken Unknown] carvedilol 12.5 mg PO BIDCC #60 tab 11/01/19 [Rx Last Taken Unknown] docusate sodium 100 mg PO BID #30 cap 11/01/19 [Rx Last Taken Unknown] melatonin 3 mg PO HS #15 tab 11/01/19 [Rx Last Taken Unknown] methocarbamol 750 mg PO TIDP PRN #25 tab 11/01/19 [Rx Last Taken Unknown] tamsulosin 0.4 mg PO HS #30 cap 11/01/19 [Rx Last Taken Unknown] COURSE Hospital Course Hospital course: Right hip fracture: s/p ORIF (10/24) postop management including pain control and dvt prophylaxis by surg team - 50% weight bearing - posterior hip precautions x6 weeks - oral pain medis and diet - prophy- IS, ambulation/PT, eliquis, foot pumps - dispo: plan is for d/c to SNF today. will need f/u with orthopedics - Felecia Negron in 1 week. *Infrarenal abdominal type B uncomplicated aortic dissection: -IR consulted & recommends outpt f/u for evaluation for endograft repair. Size 3.5 cm without evidence of malperfusion. 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 -IMproved -intake and output *Acute on likely chronic Diastolic CHF: improved -echo EF wnl, severely dilated b/l atria - /u with cardio for afib and CHF *acute Hypoxic Resp failure: 2/2 above -covid neg on 10/23 -now on room air *Delerium: resolved *HTN: cont home ACEI/BB/ needed hydralazine. *AFib(new): -CHADSVASC=2 -on Eliquis *Generalized weakness/deconditioning/debility: *HTN -increased carvedilol and added amlodipine for poorly controlled BP Interval history: History of present illness: Mr. Escudero is a 74 year old M with a history of hypertension presents to the ER following a fall on his right hip. Patient was carrying a load on his pickup truck when the tailgate gave way and slammed his arm was in him to slip and fall on the ground. Patient was brought to the ER. Initial work-up was consistent with subtrochanteric right hip fracture. Orthopedics was consulted and recommended follow-up on Friday for operative intervention. However due to significant pain patient request admission. 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 Case was discussed by ER physician with interventional radiology who recommended outpatient follow-up for evaluation and subsequently hospitalist service was consulted for pain management. Patient received his usual dose of medication including amlodipine lisinopril due to elevated blood pressure around 160s. At the time of my evaluation patient is alert and oriented. History as above. Denies lightheaded dizziness chest pain or palpitation or shortness of breath. Denies lower back pain but endorses to significant right hip and groin pain. 10/21-patient doing a lot better. However overnight remains in pain. On antihypertensives. Blood pressure around 150 this morning. Per Ortho recomme ndations patient can be weightbearing as tolerated. Physical therapy ongoing. White count 11.3. 10/22-patient continues to experience pain in very concerned about gait instability. Spouse at bedside. We will continue pain management/PT OT until patient undergoes surgery. Tolerating diet. No signs of alcohol withdrawal this morning. Lucid alert. On twice a day oral alcohol. Blood pressures at goal. No abdominal pain 10/23-patient doing well. Pain well controlled. Continuing home medications. Stable labs and hemodynamics. Sodium down to 120. Check urine and serum osmolarity. Continue salt tabs/free water restriction. 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 Every 4 sodium checks. 10/24-patient will undergo right hip surgical repair this afternoon. Sodium improved to 126 from a low of 117. Secondary to pain induced ADH release consistent with a urine osmolality 349. Continue free water restriction/salt tabs. Will review postoperatively. Pain in good control. 10/25 Status post ORIF last evening and intraoperatively had episodes of mild hypotension and also was given blood transfusion. Slept well. No new complaints this morning has a little bit of cough she has had for a few days. Oxygenating better. 10/26 Confusion last night. Increase oxygen need earlier this morning. Chest x-ray pulmonary edema. Lasix ordered. Patient on oxygen mask 10 L, as needed BiPAP. For bedside. Patient able answer questions appropriately. 10/27 But better and feeling better. On room air this morning. at bedside. Awaiting echo results. Saturated dressing over incision site. Denies shortness of breath or coughing this morning. 10/28 Patient was put on 1 L of oxygen at night while he was sleeping but then taken off while he was awake this morning with good oxygenation. Patient does feel better. His cough is less frequent and is more dry. Does not feel any shortness of breath at the moment. Today's labs either unremarkable or improved. 10/29 Slept well and feeling better. Occasional cough with some phlegm. He says his shortness of breath is improving. No new complaints. Is on room air. Likely discharge to have on Friday. 10/30 Pt does not have any new complaints. His blood pressure is not well controlled. I told him that he would possibly be discharged to intermediate tomorrow. He is happy with this. 10/31 Patient feels fine and does not have any complaints. His temperature 99+. No clinical evidence of infection. But blood culture was drawn and UA and blood culture were sent. Orthopedist cleared to discharge home today. He will be discharged to SNF to follow with PCP, supervisor [employer] (for atrial fibrillation and heart failure), Dr. Felecia Negron in one week and Dr. Resendiz (aortic dissection and occlusion of common external iliac artery). He needs to do more exercise prevent from more thrombotic events. Continue PT OT. Call PCP for medical issues. Discharge diagnosis: Right hip fracture: s/p ORIF Time Spent with Patient Time attestation: Total time spent providing and/or coordinating discharge services: EXAM Constitutional Vitals: Temp Pulse Resp BP Pulse Ox 99.5 F H 84 18 137/70 95 11/01/19 12:53 11/01/19 12:53 11/01/19 12:53 11/01/19 12:53 11/01/19 12:00 Additional findings Additional findings: General: Alert, Awake, No acute Distress Eyes/N/T: EOMI, Head/Neck: neck supple, CV: irreg irreg, No murmurs, Pulm: b/l rhonchi much improved, mild wheezing, peripheral bronchial sounds Abd: soft, nontender, +BS x4 Ext: no clubbing/cyanosis/edema, right hip in dressings Neuro: Alert, no focal deficits, moves all extremities, Skin: warm/dry Discharge Data Data Completed and Pending Labs on day of discharge: Labs from last 24 hours 11/01/19 11/01/19 11/01/19 11:40 05:00 05:00 WBC 8.5 RBC 3.20 L Hgb 10.4 L Hct 31.2 L MCV 97.5 MCH 32.5 MCHC 33.3 RDW 12.9 Plt Count 340 MPV 9.1 Gran % 67.0 Lymph % (Auto) 18.9 [place] % (Auto) 9.6 Eos % (Auto) 3.8 Baso % (Auto) 0.7 Gran # 5.72 Lymph # (Auto) 1.61 [place] # (Auto) 0.82 Eos # (Auto) 0.32 Baso # (Auto) 0.06 Sodium 134 Potassium 3.7 Chloride 101 Carbon Dioxide 20 L Anion Gap 13.0 BUN 14 Creatinine 0.7 GFR Calculation 94 Glucose 103 Calcium 8.5 L Total Bilirubin 1.3 H AST 23 ALT 21 Alkaline Phosphatase 53 Total Protein 5.9 Albumin 3.2 Globulin 2.7 Albumin/Globulin Ratio 1.2 Urine Color Pending Urine Appearance Pending Urine pH Pending Ur Specific [place] Pending Urine Protein Pending Urine Glucose (UA) Pending Urine Ketones Pending Urine Occult Blood Pending Urine Nitrate Pending Urine Bilirubin Pending Urine Urobilinogen Pending Ur Leukocyte Esterase Pending Discharge Plan Patient/Caregiver Discharge Instructions Activity: ambulate only with your walker Diet: Regular Diet Instructions: Leg Fracture (ED) Activity Restrictions/Additional Instructions: Follow up with orthopedic surgery as instructed. [place] rx: no alcohol, driving, or tylenol with this med. Prescriptions: New hydrocodone-acetaminophen 5-325 mg Tablet 1 tab PO Q4HP PRN (Reason: Per Pain Protocol) Qty: 14 RF: 0 methocarbamol 750 mg Tablet 750 mg PO BIDP PRN (Reason: Muscle Spasm) Qty: 10 RF: 0 methocarbamol 750 mg Tablet 750 mg PO TIDP PRN (Reason: Muscle Spasm) Qty: 25 RF: 0 Eliquis 5 mg Tablet 2.5 mg PO BID Qty: 56 RF: 0 carvedilol 12.5 mg Tablet 12.5 mg PO BIDCC Qty: 60 RF: 0 melatonin 3 mg Tablet 3 mg PO HS Qty: 15 RF: 0 tamsulosin 0.4 mg Capsule 0.4 mg PO HS Qty: 30 RF: 0 amlodipine 10 mg Tablet 10 mg PO DAILY Qty: 30 RF: 0 docusate sodium 100 mg Capsule 100 mg PO BID Qty: 30 RF: 0 Continued lisinopril 20 MG tablet 20 mg PO DAILY RF: 0 Discontinued carvedilol 12.5 MG tablet 12.5 mg PO DAILY RF: 0 amlodipine 5 MG tablet 10 mg PO DAILY RF: 0 Other Ambulatory Orders: Complete Blood Count (Routine) Timeframe: 2 Days Facility: [facility] - Location: Laboratory Ordered By: Javier Cleveland OT Discharge Order (Routine) Location: None Selected Ordered By: Javier Cleveland Physical Therapy at Discharge - General (Routine) Location: None Selected Ordered By: Javier Cleveland Follow Up Plan Follow up with: Ramiro Negron PA-C [Physician Nuclear Pharmacist] - 11/08/19 Dillan Jimenez MD [Primary Care Provider] - Unknown [Outside] (PCP in 3 days, Cardiology in one week, Felecia Negron in 1 week. ) Ho,Graciela L, MD [Referring] - (in one week or sooner. ) Patient Disposition: Home, Self-Care Prognosis: Fair Rehab Potential: Good I certify that the patient requires SNF services: Yes Overall status at discharge: patient is progressing back to baseline Discharge Orders: Discharge Order (Routine); Ordered 11/01/19 Ordered By: Javier GRAHAM VTE Deep Vein Thrombosis/Pulmonary Embolism Present on Admission: No
[2019-11-01 13:40] LABS: Appearance,Urine CLEAR; Bacteria,Urine 0 /hpf (0); Bilirubin,Urine NEG (NEG); Color,Urine YELLOW; Culture Indicated,Urine NO; Glucose,Urine (UA) NEGATIVE (NEG); Ketones,Urine 5/TR mg/dL (NEG); Leukocyte Esterase,Urine NEG /uL (NEG); Mucus,Urine FEW /hpf (0); Nitrate,Urine NEG (NEG); Protein,Urine 30 mg/dL (NEG); Specific Gravity,Urine 1.021 (1.000-1.035); Urine Blood NEG mg/dL (<0.03); Urine Hyaline Cast 8 /lpf (0-2); Urine RBC 1 /hpf (0-1); Urine Squamous Epithelial Cell 2 /hpf (0-4); Urine Transitional Epi Cells < 1 /hpf (0-2); Urine WBC 1 /hpf (0-4)
== END 2019-11-01 14:38 | disposition home or self-care (01) | DRG 466 ==
LOC: ED 12:58 → MEDSUR 12:58 → OBSVTOIN 19:15 → MEDSUR 19:19 → ICU 10-25 23:07 → MEDSUR 10-29 18:10
PROVIDERS: ADMIT Internal Medicine; ATTEND Internal Medicine

== ENCOUNTER 2019-11-04 07:27 | Inpatient (IN) ==
[2019-11-04] MEDS ORDERED: IOPAMIDOL 100 ML BOTTLE IV ONE (07:28)
--- NOTE | 2019-11-04 08:13 | Emergency Department Note ---
SOB HPI General Chief Complaint: Shortness of Breath/Dyspnea Stated Complaint: SOB Time Seen by Provider: 11/04/19 07:48 Source: EMS Mode of arrival: EMS Limitations: physical limitation History of Present Illness HPI Narrative: This pleasant 74-year-old male comes from [facility] via ambulance. Somewhere around 6:30 AM he became acutely short of breath. He was given a nebulizer treatment there but remained with difficulties breathing and low saturations around 87% even while being on 5 L of oxygen. He does not normally have oxygen there. He was given a second nebulizer in route. Patient is recovering from a right hip fracture from 1 week ago that did have open reduction and internal fixation with replacement. However, he fell again yesterday causing a less severe fracture of the left hip and was told, according to his Chelo, that it should heal itself and not a weightbearing area or problem. Patient had been discharged from this hospital 3 days ago to go to [facility]. He was placed on Eliquis at that time or shortly before not having previously been on it, this for atrial fibrillation. He currently is taking 2-3 narcotics per day for his surgical pain and has some constipation. Related Data Home Medications Medication Instructions Recorded Confirmed lisinopril 20 mg PO DAILY 03/14/15 11/04/19 Previous Rx's Medication Instructions Recorded hydrocodone-acetaminophen 1 tab PO Q4HP PRN #14 tab 10/23/19 methocarbamol 750 mg PO BIDP PRN #10 tab 10/23/19 amlodipine 10 mg PO DAILY #30 tab 11/01/19 apixaban [Eliquis] 2.5 mg PO BID #56 tab 11/01/19 carvedilol 12.5 mg PO BIDCC #60 tab 11/01/19 docusate sodium 100 mg PO BID #30 cap 11/01/19 melatonin 3 mg PO HS #15 tab 11/01/19 methocarbamol 750 mg PO TIDP PRN #25 tab 11/01/19 tamsulosin 0.4 mg PO HS #30 cap 11/01/19 Allergies Allergy/AdvReac Type Severity Reaction Status Date / Time No Known Drug Allergies Allergy Verified 11/04/19 07:27 Review of Systems ROS ROS Narrative: No fevers chills sweats No chest pain Some wheezing which is unusual for have a history of asthma or COPD but does smoke. No abdominal pain, nausea, vomiting, diarrhea, hematochezia, melena. Does have some constipation now he attributes to the pain medications. No dysuria No back pain that is new No weakness or dizziness. [facility] Narrative Patient History Narrative: Narrative: Denies history of myocardial infarction, asthma, COPD, CVA, TIA. Medical/Surgical/Family History All Active Problems (Updated 11/04/19 @ 08:25 by Darryl Land DO) Acute dyspnea (Acute) Hypoxia (Acute) Chronic anticoagulation (Chronic) Atrial fibrillation, chronic (Acute ~11/01/19) Hypertension, essential (Acute) Cigarette smoker (Acute) Closed fracture of greater trochanter of left femur (Acute) Cervical disc disease (Chronic) Closed fracture of proximal end of femur (Acute) Medical History (Updated 11/04/19 @ 08:25 by Darryl Land DO) Atrial fibrillation, chronic (Acute ~11/01/19) Cervical disc disease (Chronic) Chronic anticoagulation (Chronic) For atrial fibrillation Cigarette smoker (Acute) Hypertension, essential (Acute) Surgical History (Updated 11/04/19 @ 08:18 by Darryl Land DO) History of right hip replacement (Acute) Social History Smoking Status: Current every day smoker (Up until about a week ago when he broke his hip. He now is on patches. He was smoking 1 pack/day.) Alcohol Intake Frequency: 2+ drinks per day Substance Use: does not use Exam Narrative Narrative: Narrative: General Limitations: physical limitation General appearance: alert, in no apparent distress, nontoxic and other (Mostly resting peacefully on his back with his eyes closed.) Head Head: atraumatic and normocephalic Eye Eye: Present normal appearance, PERRL (Pupils only slightly reactive. Are fairly small around 2 to 2-1/2 mm.) and EOMI ENT ENT: Present normal oropharynx and mucous membranes dry Neck Neck: Present trachea midline; Absent lymphadenopathy and thyromegaly Chest Chest: Present symmetric chest wall rise Respiratory Respiratory: Present wheezes (Rare to occasional.); Absent respiratory distress, rales/crackles, stridor, accessory muscle use and prolonged expiratory phase Cardiovascular Cardiovascular: Present irregular rhythm; Absent systolic murmur and diastolic murmur Adbominal Abdominal: Present soft, tenderness (Slight diffuse.) and other (Mildly distended and tympanitic.); Absent distention, guarding, rebound, rigidity, organomegaly and mass Extremities Extremities: Present pretibial edema (1/4 pretibial edema pitting in nature on the right.) and other (Multiple areas of ecchymoses up and down the right lower extremity all the way to the ankle.); Absent pedal edema, calf tenderness and cyanosis Back Back: Neurological Neurological: Present alert and oriented X3 Psychiatric Psychiatric: Present flat affect and poor eye contact; Absent depressed, agitated and anxious Skin Skin: Present warm and dry; Absent cyanosis and pallor Course Vital Signs Vital signs: Vital Signs Temperature 98.0 F 11/04/19 07:27 Pulse Rate 82 11/04/19 07:27 Respiratory Rate 22 11/04/19 07:27 Blood Pressure 180/82 11/04/19 07:27 Pulse Oximetry (%) 91 11/04/19 07:27 Temperature 98.0 F 11/04/19 07:27 Pulse Rate 33 L 11/04/19 08:07 Respiratory Rate 26 H 11/04/19 08:07 Blood Pressure 153/89 11/04/19 08:07 Pulse Oximetry (%) 99 11/04/19 08:07 MDM MDM Narrative Medical decision making narrative: 7:57 AM - interviewed and examined. Acute shortness of breath, unexplained in a patient post surgery, on Eliquis, smoker, 74-year-old male. Cardiac and pulmonary work-up including d-dimer, chest x-ray, EKG etc. Family, patient's Chelo, clarifies that his Eliquis was not started until after near his discharge from this hospital 3 to 4 days ago. His atrial fibrillation has been chronic but he has not previously been started on this. 8:23 AM - patient's oxygen has been now titrated downward to 8 L/min with maintaining saturations still above 93% and will be further titrated. Due to change in shift patient's care will be transferred to Dr. So. Lab Data Result diagrams: 11/04/19 07:58 11/04/19 07:58 Discharge Plan Patient/Caregiver Discharge Instructions Pt seen by [employer]/PA only: No Clinical Impression: Acute dyspnea, Hypoxia Patient Disposition: Still a Patient Follow up with: Dillan Jimenez MD [Primary Care Provider] - Prescriptions: No Action lisinopril 20 MG tablet 20 mg PO DAILY RF: 0 hydrocodone-acetaminophen 5-325 mg Tablet 1 tab PO Q4HP PRN (Reason: Per Pain Protocol) Qty: 14 RF: 0 methocarbamol 750 mg Tablet 750 mg PO BIDP PRN (Reason: Muscle Spasm) Qty: 10 RF: 0 methocarbamol 750 mg Tablet 750 mg PO TIDP PRN (Reason: Muscle Spasm) Qty: 25 RF: 0 Eliquis 5 mg Tablet 2.5 mg PO BID Qty: 56 RF: 0 carvedilol 12.5 mg Tablet 12.5 mg PO BIDCC Qty: 60 RF: 0 melatonin 3 mg Tablet 3 mg PO HS Qty: 15 RF: 0 tamsulosin 0.4 mg Capsule 0.4 mg PO HS Qty: 30 RF: 0 amlodipine 10 mg Tablet 10 mg PO DAILY Qty: 30 RF: 0 docusate sodium 100 mg Capsule 100 mg PO BID Qty: 30 RF: 0
[2019-11-04 08:30] LABS: Basophils # (Auto) 0.04 K/mcL (0.00-0.30); Basophils % (Auto) 0.4 % (0.0-2.0); Eosinophils # (Auto) 0.08 K/mcL (0.00-0.70); Eosinophils % (Auto) 0.7 % (0.0-7.0); Granulocytes % (Auto) 85.7 % (38.0-78.0); Hematocrit 30.2 % (40.1-51.0); Lymphocytes # (Auto) 0.67 K/mcL (1.50-4.80); Mean Corpuscular HGB Conc 33.1 g/dL (31.0-36.0); Mean Platelet Volume 9.6 fL (7.4-10.4); Monocytes % (Auto) 7.2 % (1.0-12.0); Platelet Count 354 K/mcL (140-440); RBC 3.05 M/mcL (4.63-6.08); Red Cell Distribution Width 13.1 % (11.5-14.5); WBC 11.2 K/mcL (4.50-11.00)
--- NOTE | 2019-11-04 08:38 | XRay Report ---
INDICATION: acute dypsnea TECHNIQUE: AP portable semiupright chest x-ray COMPARISON: None FINDINGS: Lungs:Increasing interstitial infiltrates bilaterally. Findings are nonspecific. Findings may be due to interstitial pulmonary edema. Pneumonia including viral pneumonia is possible. Covid pneumonia is not excluded. No discrete pulmonary parenchymal mass Heart, vascular:There is cardiomegaly. This is slightly worse than on 11/03/2019 Mediastinum, bebeto:Distal trachea appears somewhat narrowed. See scan may be helpful to evaluate for mediastinal adenopathy. No definite mediastinal widening. Pleura:No pleural fluid. No pleural-based mass or calcification Skeletal:Negative. IMPRESSION: 1. Increased cardiomegaly 2. Increasing bilateral interstitial infiltrates. Findings may be due to interstitial pulmonary edema but pneumonia including viral pneumonia is possible 3. Possible narrowing of the distal trachea. Follow-up examination or CT scan recommended to evaluate for mediastinal adenopathy Interpreted and Authenticated by: Kalyan Mc 11/04/19
[2019-11-04 08:57] LABS: ALT/SGPT 25 U/l (0-40); AST/SGOT 23 U/l (0-37); Albumin 3.6 gm/dL (3.2-5.2); Albumin/Globulin Ratio 1.2 (1.0-2.3); Alkaline Phosphatase 76 U/L (39-117); Bilirubin,Total 1.6 mg/dL (0.0-1.0); Blood Urea Nitrogen 15 mg/dl (8-23); Calcium 8.5 mg/dl (8.6-10.4); Carbon Dioxide 18 mmol/L (22-30); Chloride 98 mmol/L (96-108); Globulin 2.9 gm/dL (2.2-3.7); Glomerular Filtration Rate 94; Glucose 129 mg/dL (70-105)
--- NOTE | 2019-11-04 09:56 | Emergency Department Note ---
SOB HPI General Chief Complaint: Shortness of Breath/Dyspnea Stated Complaint: SOB Time Seen by Provider: 11/04/19 07:48 Source: EMS Mode of arrival: EMS Limitations: physical limitation History of Present Illness HPI Narrative: Narrative: I took over care of this patient from Dr. Land at 9 AM. Patient has had new onset of shortness of breath and slight chest discomfort starting this morning. Related Data Home Medications Medication Instructions Recorded Confirmed lisinopril 20 mg PO DAILY 03/14/15 11/04/19 Previous Rx's Medication Instructions Recorded hydrocodone-acetaminophen 1 tab PO Q4HP PRN #14 tab 10/23/19 methocarbamol 750 mg PO BIDP PRN #10 tab 10/23/19 amlodipine 10 mg PO DAILY #30 tab 11/01/19 apixaban [Eliquis] 2.5 mg PO BID #56 tab 11/01/19 carvedilol 12.5 mg PO BIDCC #60 tab 11/01/19 docusate sodium 100 mg PO BID #30 cap 11/01/19 melatonin 3 mg PO HS #15 tab 11/01/19 methocarbamol 750 mg PO TIDP PRN #25 tab 11/01/19 tamsulosin 0.4 mg PO HS #30 cap 11/01/19 Allergies Allergy/AdvReac Type Severity Reaction Status Date / Time No Known Drug Allergies Allergy Verified 11/04/19 07:27 Review of Systems ROS ROS Narrative: Narrative: PFSH Narrative Patient History Narrative: Narrative: Medical/Surgical/Family History All Active Problems (Updated 11/04/19 @ 13:32 by Arnaldo So MD) Acute dyspnea (Acute) Hypoxia (Acute) Congestive heart failure (Acute) Chronic anticoagulation (Chronic) Atrial fibrillation, chronic (Acute ~11/01/19) Hypertension, essential (Acute) Cigarette smoker (Acute) Closed fracture of greater trochanter of left femur (Acute) Cervical disc disease (Chronic) Closed fracture of proximal end of femur (Acute) Medical History (Updated 11/04/19 @ 13:32 by Arnaldo So MD) Atrial fibrillation, chronic (Acute ~11/01/19) Cervical disc disease (Chronic) Chronic anticoagulation (Chronic) For atrial fibrillation Cigarette smoker (Acute) Hypertension, essential (Acute) Surgical History (Updated 11/04/19 @ 08:18 by Darryl Land DO) History of right hip replacement (Acute) Social History Smoking Status: Current every day smoker (Up until about a week ago when he broke his hip. He now is on patches. He was smoking 1 pack/day.) Alcohol Intake Frequency: 2+ drinks per day Substance Use: does not use Exam Narrative Narrative: Narrative: General Limitations: physical limitation General appearance: alert, in no apparent distress, nontoxic and other (Mostly resting peacefully on his back with his eyes closed.) Course Vital Signs Vital signs: Vital Signs Temperature 98.0 F 11/04/19 07:27 Pulse Rate 82 11/04/19 07:27 Respiratory Rate 22 11/04/19 07:27 Blood Pressure 180/82 11/04/19 07:27 Pulse Oximetry (%) 91 11/04/19 07:27 Temperature 98.0 F 11/04/19 07:27 Pulse Rate 37 L 11/04/19 12:02 Respiratory Rate 25 H 11/04/19 13:06 Blood Pressure 166/90 11/04/19 13:06 Pulse Oximetry (%) 96 11/04/19 12:02 [facility] MDM Narrative Medical decision making narrative: Narrative: 0956 -patient's d-dimer is come back elevated at 3.76. I have ordered a CT angiogram of the chest. 1330 -patient CT scan was unremarkable for pulmonary embolus but was consistent with congestive heart failure and his BNP was elevated at the 6700 range. I ordered 40 mg of IV Lasix and he began to have a diuresis. I discussed the case with Dr. Robles who will admit the patient to the hospital. Lab Data Lab results reviewed: Yes I reviewed the patient's lab results. Result diagrams: 11/04/19 07:58 11/04/19 07:58 Labs: Lab Results 11/04/19 11/04/19 11/04/19 Range/Units 07:51 07:58 07:58 WBC 11.2 H (4.50-11.00) K/mcL RBC 3.05 L (4.63-6.08) M/mcL Hgb 10.0 L (13.7-17.5) g/dL Hct 30.2 L (40.1-51.0) % MCV 99.0 (80.0-100.0) fL MCH 32.8 (26.0-34.0) pg MCHC 33.1 (31.0-36.0) g/dL RDW 13.1 (11.5-14.5) % Plt Count 354 (140-440) K/mcL MPV 9.6 (7.4-10.4) fL Gran % 85.7 H (38.0-78.0) % Lymph % (Auto) 6.0 L (15.5-49.0) % [place] % (Auto) 7.2 (1.0-12.0) % Eos % (Auto) 0.7 (0.0-7.0) % Baso % (Auto) 0.4 (0.0-2.0) % Gran # 9.59 H (1.80-8.00) K/mcL Lymph # (Auto) 0.67 L (1.50-4.80) K/mcL [place] # (Auto) 0.80 (0.10-0.90) K/mcL Eos # (Auto) 0.08 (0.00-0.70) K/mcL Baso # (Auto) 0.04 (0.00-0.30) K/mcL D-Dimer (0.00-0.40) ug/ml Sodium 131 L (133-145) mmol/L Potassium 4.2 (3.3-5.1) mmol/L Chloride 98 (96-108) mmol/L Carbon Dioxide 18 L (22-30) mmol/L Anion Gap 15.0 (8-16) BUN 15 (8-23) mg/dl Creatinine 0.7 (0.7-1.2) mg/dl GFR Calculation 94 Glucose 129 H (70-105) mg/dL Calcium 8.5 L (8.6-10.4) mg/dl Total Bilirubin 1.6 H (0.0-1.0) mg/dL AST 23 (0-37) U/l ALT 25 (0-40) U/l Alkaline Phosphatase 76 (39-117) U/L Troponin T (0-0.03) ng/ml NT-Pro-B Natriuret Pep 6789.0 H (0-125) pg/ml Total Protein 6.5 (5.9-8.4) gm/dL Albumin 3.6 (3.2-5.2) gm/dL Globulin 2.9 (2.2-3.7) gm/dL Albumin/Globulin Ratio 1.2 (1.0-2.3) 11/04/19 11/04/19 11/04/19 Range/Units 07:58 07:58 11:25 WBC (4.50-11.00) K/mcL RBC (4.63-6.08) M/mcL Hgb (13.7-17.5) g/dL Hct (40.1-51.0) % MCV (80.0-100.0) fL MCH (26.0-34.0) pg MCHC (31.0-36.0) g/dL RDW (11.5-14.5) % Plt Count (140-440) K/mcL MPV (7.4-10.4) fL Gran % (38.0-78.0) % Lymph % (Auto) (15.5-49.0) % [place] % (Auto) (1.0-12.0) % Eos % (Auto) (0.0-7.0) % Baso % (Auto) (0.0-2.0) % Gran # (1.80-8.00) K/mcL Lymph # (Auto) (1.50-4.80) K/mcL [place] # (Auto) (0.10-0.90) K/mcL Eos # (Auto) (0.00-0.70) K/mcL Baso # (Auto) (0.00-0.30) K/mcL D-Dimer 3.76 H (0.00-0.40) ug/ml Sodium (133-145) mmol/L Potassium (3.3-5.1) mmol/L Chloride (96-108) mmol/L Carbon Dioxide (22-30) mmol/L Anion Gap (8-16) BUN (8-23) mg/dl Creatinine (0.7-1.2) mg/dl GFR Calculation Glucose (70-105) mg/dL Calcium (8.6-10.4) mg/dl Total Bilirubin (0.0-1.0) mg/dL AST (0-37) U/l ALT (0-40) U/l Alkaline Phosphatase (39-117) U/L Troponin T < 0.01 < 0.01 (0-0.03) ng/ml NT-Pro-B Natriuret Pep (0-125) pg/ml Total Protein (5.9-8.4) gm/dL Albumin (3.2-5.2) gm/dL Globulin (2.2-3.7) gm/dL Albumin/Globulin Ratio (1.0-2.3) Radiology Data Radiology results reviewed: Yes I reviewed the patient's radiology results. Discharge Plan Patient/Caregiver Discharge Instructions Pt seen by [facility]/PA only: No Clinical Impression: Acute dyspnea, Hypoxia, Congestive heart failure Patient Disposition: Xfer As Inpt ([facility]) Follow up with: Dillan Jimenez MD [Primary Care Provider] - Prescriptions: No Action lisinopril 20 MG tablet 20 mg PO DAILY RF: 0 hydrocodone-acetaminophen 5-325 mg Tablet 1 tab PO Q4HP PRN (Reason: Per Pain Protocol) Qty: 14 RF: 0 methocarbamol 750 mg Tablet 750 mg PO BIDP PRN (Reason: Muscle Spasm) Qty: 10 RF: 0 methocarbamol 750 mg Tablet 750 mg PO TIDP PRN (Reason: Muscle Spasm) Qty: 25 RF: 0 Eliquis 5 mg Tablet 2.5 mg PO BID Qty: 56 RF: 0 carvedilol 12.5 mg Tablet 12.5 mg PO BIDCC Qty: 60 RF: 0 melatonin 3 mg Tablet 3 mg PO HS Qty: 15 RF: 0 tamsulosin 0.4 mg Capsule 0.4 mg PO HS Qty: 30 RF: 0 amlodipine 10 mg Tablet 10 mg PO DAILY Qty: 30 RF: 0 docusate sodium 100 mg Capsule 100 mg PO BID Qty: 30 RF: 0
[2019-11-04] MEDS ORDERED: 0.9 % SODIUM CHLORIDE 1,000 ML IV ONE (10:30)
--- NOTE | 2019-11-04 10:51 | Cat Scan Report ---
INDICATION: R/O PE. Cough. Dyspnea. COMPARISON: Chest x-rays dated 11/04/2019, 11/03/2019, 11/01/2019. TECHNIQUE: Axial images obtained through the chest. 90ml Isovue 370 injected intravenously, and scanning was performed during pulmonary arterial phase. Sagittally and coronally reformatted images were obtained. MIP reformatted images. FINDINGS: Lungs:Lungs are abnormal. There is thickening of the interlobular septa. There are patchy infiltrates in both upper lobes. No dense consolidation. No focal mass. Infiltrates are consistent with pneumonia. Viral pneumonia is possible. There are pleural effusions which are atypical for viral pneumonia but may be related to congestive heart failure. Mediastinum, vascular:Main pulmonary artery, right pulmonary artery, left pulmonary artery are negative. No intraluminal filling defects. No lobar, segmental, or subsegmental emboli. Main pulmonary artery measures 4.0 cm in cross-sectional diameter. This is consistent with pulmonary arterial hypertension. There is no significant reflux of contrast material into the inferior vena cava. No evidence for right heart strain Thoracic aorta is negative. No aneurysmal dilatation No pathologic mediastinal or hilar adenopathy There is very severe calcified atherosclerotic plaque. There is dense calcification of the subclavian arteries bilaterally. Right subclavian artery stenosis is likely. Heart:There is cardiomegaly. There is enlargement of the left ventricle and left atrium. There is severe coronary artery calcification Pleura:Bilateral moderate pleural effusions Axilla, supraclavicular regions, chest wall:No pathologic axillary or supraclavicular adenopathy. Musculoskeletal:Negative thoracic spine. No compression fracture. No lytic lesion. No rib or sternal lesions Upper Abdomen:There is a 2.4 cm right upper pole renal cyst. This is unchanged since abdominal CT scan dated 10/23/2019. Abdominal aorta is densely calcified. There is calcification with in the suprarenal abdominal aorta lumen, unchanged IMPRESSION: 1. Negative pulmonary CTA. Negative examination for pulmonary embolus 2. Severe atherosclerotic disease including severe coronary artery calcification 3. Cardiomegaly with left ventricular and left atrial enlargement. No evidence for right heart strain 4. Bilateral pleural effusions are probably secondary to congestive heart failure 5. Pulmonary parenchymal infiltrates. Interlobular septal thickening is probably related to interstitial edema. Patchy infiltrates may be pulmonary edema or pneumonia. 6. Dilated main pulmonary artery consistent with pulmonary arterial hypertension The exam was performed using radiation dose optimization techniques including, but not limited to, automated exposure control, adjustment of the mA and/or kV according to patient size and use of iterative reconstruction technique. Interpreted and Authenticated by: Kalyan Mc 11/04/19
[2019-11-04] MEDS ORDERED: FUROSEMIDE 40 MG/4 ML VIAL IV ONE (11:16)
[2019-11-04] MEDS ORDERED: LACTULOSE 20 GM/30 ML ORAL.SOL PO PRN (17:11)
[2019-11-04] MEDS ORDERED: METHOCARBAMOL 750 MG TABLET PO PRN (17:11)
[2019-11-04] MEDS ORDERED: SENNOSIDES 1 TABLET PO PRN (17:11)
[2019-11-04] MEDS ORDERED: ONDANSETRON 4 MG/2 ML VIAL IV PRN (17:11)
[2019-11-04] MEDS: CARVEDILOL 12.5 MG TABLET PO SCH (19:38)
[2019-11-04] MEDS ORDERED: hydrALAZINE 20 MG/ML VIAL IV PRN (20:05)
[2019-11-04] MEDS ORDERED: DOCUSATE SODIUM 100 MG CAPSULE PO SCH (21:00)
[2019-11-04] MEDS ORDERED: hydrALAZINE 20 MG/ML VIAL ONE (21:09)
[2019-11-04] MEDS: APIXABAN 5 MG TABLET PO SCH (21:10)
[2019-11-04] MEDS: MELATONIN 3 MG TABLET PO SCH (21:10)
[2019-11-04] MEDS: TAMSULOSIN 0.4 MG CAPSULE PO SCH (21:10)
[2019-11-04] MEDS: DOCUSATE SODIUM 100 MG CAPSULE PO SCH (21:11)
[2019-11-04] MEDS: 0.9 % SODIUM CHLORIDE 10 ML SYRINGE IV SCH (21:12)
[2019-11-04] MEDS: HYDROcodone/APAP 5/325MG TABLET PO PRN (21:26)
[2019-11-04] MEDS ORDERED: OLANZapine 5 MG TABLET PO SCH (21:30)
--- NOTE | 2019-11-04 21:37 | Internal Med History&Physical ---
HPI History of Present Illness Patient information: Note initiated : 11/04/19 at 9:34 pm Service Date, if different from initiated Date: [] Patient: Pedrito Escudero a 74 y/o M admitted on 11/04/19 for SOB . Chief Complaint: [sob] pt unable to tell me where he is or why he is here. [facility] is a [facility] a hospital [facility]. says he here because he wore out his hip running 8 miles a day 9 years ago. History of present illness: Mr. Escudero is a 74 year old M fell on 10/21/2019 with. He had fx around his past R hip prosthesis and was admitted from 10/20-10/30. 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 Also had alcohol deliri um tremens, afib, bilateral atrial dilation, occluded right common external iliac artery. infrarenal aneurysm. and hypertension. ORIF was on 10/26/2019. He fell at [facility] on 11/03/19 with a nondisplaced hip fracture left greater trochanter rec for non surgical management. Pt today came in with sob and w/u for PE found actually he had CHF. admitted for diuresis but was also given maintainence fluid in the EMD. He is however improved. tonight is confused and a horrible historian. Review of Systems ROS unobtainable: due to mental status PFSH PFSH All Active Problems (Updated 11/04/19 @ 21:59 by Carlos Collins MD) Delirium due to another medical condition (Acute) Alcoholism (Acute) Acute dyspnea (Acute) Hypoxia (Acute) Congestive heart failure (Acute) Chronic anticoagulation (Chronic) Atrial fibrillation, chronic (Acute ~11/01/19) Hypertension, essential (Acute) Cigarette smoker (Acute) Closed fracture of greater trochanter of left femur (Acute) Cervical disc disease (Chronic) Closed fracture of proximal end of femur (Acute) Medical History (Updated 11/04/19 @ 21:59 by Carlos Collins MD) Atrial fibrillation, chronic (Acute ~11/01/19) rate control and continue eliquis Cervical disc disease (Chronic) Chronic anticoagulation (Chronic) For atrial fibrillation Cigarette smoker (Acute) Hypertension, essential (Acute) Surgical History (Updated 11/04/19 @ 08:18 by Darryl Land DO) History of right hip replacement (Acute) Social History (Updated 11/04/19 @ 21:53 by Carlos Collins MD) smoking status: Current every day smoker alcohol intake frequency: 2+ drinks per day substance use type: does not use additional history: currently limited to 3 glasses 6 oz wine daily with meals. He tells me drank 5 beers and 5 glasses wined daily. 1 gallon jug wine lasted 7 days. typically. MEDS/ALLERGIES Home Medications and Allergies Home Medications Medication Instructions Recorded Confirmed Type lisinopril 20 mg PO DAILY 03/14/15 11/04/19 History hydrocodone-acetaminophen 1 tab PO Q4HP PRN #14 tab 10/23/19 11/04/19 Rx methocarbamol 750 mg PO BIDP PRN #10 tab 10/23/19 11/04/19 Rx amlodipine 10 mg PO DAILY #30 tab 11/01/19 11/04/19 Rx apixaban [Eliquis] 2.5 mg PO BID #56 tab 11/01/19 11/04/19 Rx carvedilol 12.5 mg PO BIDCC #60 tab 11/01/19 11/04/19 Rx docusate sodium 100 mg PO BID #30 cap 11/01/19 11/04/19 Rx melatonin 3 mg PO HS #15 tab 11/01/19 11/04/19 Rx methocarbamol 750 mg PO TIDP PRN #25 tab 11/01/19 11/04/19 Rx tamsulosin 0.4 mg PO HS #30 cap 11/01/19 11/04/19 Rx Allergies Allergy/AdvReac Type Severity Reaction Status Date / Time No Known Drug Allergies Allergy Verified 11/04/19 07:27 EXAM Constitutional Vitals: Temp Pulse Resp BP Pulse Ox 98.9 F 81 23 H 186/83 94 11/04/19 17:02 11/04/19 17:02 11/04/19 17:37 11/04/19 17:32 11/04/19 17:02 Gen WDWN WM appears stated age alert and oriented to person not date or place CV Irreg rate controlled Lungs basilar crackles mild good air movement upper lung abd soft calves no edema DATA Data Completed and Pending Labs on day of discharge: Labs from last 24 hours 11/04/19 11/04/19 11/04/19 11:25 07:58 07:58 WBC RBC Hgb Hct MCV MCH MCHC RDW Plt Count MPV Gran % Lymph % (Auto) [place] % (Auto) Eos % (Auto) Baso % (Auto) Gran # Lymph # (Auto) [place] # (Auto) Eos # (Auto) Baso # (Auto) D-Dimer 3.76 H Sodium Potassium Chloride Carbon Dioxide Anion Gap BUN Creatinine GFR Calculation Glucose Calcium Total Bilirubin AST ALT Alkaline Phosphatase Troponin T < 0.01 < 0.01 NT-Pro-B Natriuret Pep Total Protein Albumin Globulin Albumin/Globulin Ratio 11/04/19 11/04/19 11/04/19 07:58 07:58 07:51 WBC 11.2 H RBC 3.05 L Hgb 10.0 L Hct 30.2 L MCV 99.0 MCH 32.8 MCHC 33.1 RDW 13.1 Plt Count 354 MPV 9.6 Gran % 85.7 H Lymph % (Auto) 6.0 L [place] % (Auto) 7.2 Eos % (Auto) 0.7 Baso % (Auto) 0.4 Gran # 9.59 H Lymph # (Auto) 0.67 L [place] # (Auto) 0.80 Eos # (Auto) 0.08 Baso # (Auto) 0.04 D-Dimer Sodium 131 L Potassium 4.2 Chloride 98 Carbon Dioxide 18 L Anion Gap 15.0 BUN 15 Creatinine 0.7 GFR Calculation 94 Glucose 129 H Calcium 8.5 L Total Bilirubin 1.6 H AST 23 ALT 25 Alkaline Phosphatase 76 Troponin T NT-Pro-B Natriuret Pep 6789.0 H Total Protein 6.5 Albumin 3.6 Globulin 2.9 Albumin/Globulin Ratio 1.2 A/P Assessment and plan (1) Congestive heart failure: Status: Acute Comment: will diurese with furosemide 40 mg bid and replace mag, k control hr. pt with acute diastolic chf (2) Atrial fibrillation, chronic: Status: Acute Comment: rate control and continue eliquis (3) Alcoholism: Status: Acute Comment: not acutely withdrawing. (4) Delirium due to another medical condition: Status: Acute Comment: recent illness and also alcoholism. will replace thiamine. mild low na of 131 today. hx of siadh much improved. Time Spent With Patient Time: Total time spent is greater than 50% in coordination of care (as documented) at patient's floor/unit and/or counseling patient: 50 QUALITY VTE Deep Vein Thrombosis/Pulmonary Embolism Present on Admission: No
[2019-11-04] MEDS ORDERED: OLANZapine 2.5 MG TABLET PO ONE (22:17)
[2019-11-04] MEDS: FUROSEMIDE 40 MG TABLET PO SCH (22:18)
[2019-11-04] MEDS ORDERED: FUROSEMIDE 40 MG TABLET ONE (22:23)
[2019-11-05] MEDS ORDERED: hydrALAZINE 20 MG/ML VIAL ONE (04:15)
[2019-11-05] MEDS: 0.9 % SODIUM CHLORIDE 10 ML SYRINGE IV SCH ×3 (05:28→20:46)
[2019-11-05] MEDS: HYDROcodone/APAP 5/325MG TABLET PO PRN ×3 (07:13→20:47)
[2019-11-05] MEDS: APIXABAN 5 MG TABLET PO SCH ×2 (08:27→20:47)
[2019-11-05] MEDS: CARVEDILOL 12.5 MG TABLET PO SCH ×2 (08:27→17:54)
[2019-11-05] MEDS: FUROSEMIDE 40 MG TABLET PO SCH ×2 (08:28→17:54)
[2019-11-05] MEDS: DOCUSATE SODIUM 100 MG CAPSULE PO SCH ×2 (08:28→20:48)
[2019-11-05] MEDS: MULTIVIT,THER IRON,CA,FA & MIN 1 TABLET PO SCH (08:28)
[2019-11-05] MEDS: LISINOPRIL 20 MG TABLET PO SCH (08:28)
[2019-11-05] MEDS: THIAMINE 100 MG TABLET PO SCH ×3 (08:28→20:48)
[2019-11-05] MEDS ORDERED: amLODIPine 10 MG TABLET PO SCH (09:00)
[2019-11-05] MEDS: SPIRONOLACTONE 25 MG TABLET PO SCH (10:48)
[2019-11-05] MEDS: METHOCARBAMOL 750 MG TABLET PO PRN ×2 (10:48→22:56)
[2019-11-05] MEDS: cloNIDine HCL 0.1 MG TABLET PO SCH ×2 (10:48→13:56)
--- NOTE | 2019-11-05 12:05 | Internal Med Progress Note ---
SUBJECTIVE Subjective Patient information: Note initiated : 11/05/19 at 11:58 am Service Date, if different from initiated Date: [] Patient: Pedrito Escudero 74 y/o M admitted on 11/04/19 for SOB . Chief Complaint: sob 74 yo WM accompanied by his at bedside. They both say he drinks 3-5 beers and 3-5 wine glasses a day at home prior to his injury. He has been at [facility] but not doing PT well. Was not given wine nor benzos and has been confused. Came in yest with CHF and confusion Today still impulsive and fidgety but not combative. Tells me he doesnt want to quit drinking completely Constitutional Vitals: Vital Signs Temp Pulse Resp BP Pulse Ox 98.6 F 63 24 H 100/65 93 11/05/19 10:36 11/05/19 10:36 11/05/19 10:36 11/05/19 10:36 11/05/19 10:36 Period Temp Pulse Resp BP Sys/Castro Pulse Ox Last 24 Hr 98.0 F-99.8 F 37-95 16-37 100-188/65-128 70-98 Intake and Output 11/04/19 11/05/19 11/05/19 21:59 05:59 13:59 Intake Total 200 150 240 Output Total 700 975 100 Balance -500 -825 140 Weight 87.09 kg Gen WDWN WM eyes closed but answering questions. cooperative CV Irregular but rate controlled. Lungs crackles in bases only Abd soft NT Calves no swelling or asymmetry hands not tremulous Intake & Output: Intake & Output 11/04/19 11/05/19 11/05/19 21:59 05:59 13:59 Intake Total 200 150 240 Output Total 700 975 100 Balance -500 -825 140 Weight 87.09 kg Intake: Oral 200 150 240 Output: Void Amount 700 975 100 Other: Meal Dinner Breakfast Percent of Meal Consumed 75% 100% Feeding Ability Assist with Tray Set Up Urine Appearance Clear Clear Clear Urine Color Straw Straw [place] Stool Size Large Large Stool Color Brown Brown Stool Consistency Soft Soft Formed Formed # Bowel Movements 1 OBJ DATA Labs CBC & Chem 7: 11/04/19 07:58 11/06/19 05:10 Labs: Abnormal Lab Results 11/04/19 11/04/19 11/04/19 07:58 07:58 07:58 WBC 11.2 H RBC 3.05 L Hgb 10.0 L Hct 30.2 L Gran % 85.7 H Lymph % (Auto) 6.0 L Gran # 9.59 H Lymph # (Auto) 0.67 L D-Dimer 3.76 H Sodium 131 L Carbon Dioxide 18 L Glucose 129 H Calcium 8.5 L Total Bilirubin 1.6 H NT-Pro-B Natriuret Pep 11/04/19 07:51 WBC RBC Hgb Hct Gran % Lymph % (Auto) Gran # Lymph # (Auto) D-Dimer Sodium Carbon Dioxide Glucose Calcium Total Bilirubin NT-Pro-B Natriuret Pep 6789.0 H Meds: Medications Hydrocodone Bitart/Acetaminophen ([place] 5/325mg) 1 tab PO Q4HP PRN; Protocol PRN Reason: Per Pain Protocol Last Admin: 11/05/19 07:13 Dose: 1 tab Documented by: Apixaban (Eliquis) 2.5 mg PO BID [facility] Last Admin: 11/05/19 08:27 Dose: 2.5 mg Documented by: [facility] Admin: 11/05/19 08:27 Dose: 12.5 mg Documented by: Chlordiazepoxide HCl (Librium) 10 mg PO Q8HP PRN PRN Reason: Alcohol Withdrawal Stop: 11/07/19 11:56 Clonidine HCl (Catapres) 0.1 mg PO TID [facility] Last Admin: 11/05/19 10:48 Dose: 0.1 mg Documented by: Docusate Sodium (Colace) 100 mg PO BID [facility] Last Admin: 11/05/19 08:28 Dose: 100 mg Documented by: Furosemide (Lasix) 40 mg PO BIDD [facility] Last Admin: 11/05/19 08:28 Dose: 40 mg Documented by: Iron Carb/Multivit/[place]/Folic Acid (Multivitamin W/Minerals) 1 tab PO DAILY [facility] Last Admin: 11/05/19 08:28 Dose: 1 tab Documented by: Lactulose (Cephulac) 10 gm PO DAILYP PRN PRN Reason: Constipation Lisinopril (Zestril) 20 mg PO DAILY [facility] Last Admin: 11/05/19 08:28 Dose: 20 mg Documented by: Melatonin (Melatonin 3mg Tablet) 3 mg PO HS [facility] Last Admin: 11/04/19 21:10 Dose: 3 mg Documented by: Methocarbamol (Robaxin) 750 mg PO BIDP PRN PRN Reason: Muscle Spasm Last Admin: 11/05/19 10:48 Dose: 750 mg Documented by: Olanzapine (Zyprexa) 5 mg PO [facility] Last Admin: 11/04/19 22:15 Dose: Not Given Documented by: Ondansetron HCl (Zofran) 4 mg IV Q4HP PRN; Protocol PRN Reason: Nausea And Vomiting Senna (Senokot) 2 tab PO HSP PRN PRN Reason: Constipation Sodium Chloride (Saline Flush) 10 ml IV Q8 [facility] Last Admin: 11/05/19 05:28 Dose: 10 ml Documented by: Spironolactone (Aldactone) 50 mg PO DAILY [facility] Last Admin: 11/05/19 10:48 Dose: 50 mg Documented by: Tamsulosin HCl (Flomax) 0.4 mg PO [facility] Last Admin: 11/04/19 21:10 Dose: 0.4 mg Documented by: Thiamine HCl (Vitamin B1) 100 mg PO TID [facility] Stop: 11/07/19 21:01 Last Admin: 11/05/19 08:28 Dose: 100 mg Documented by: A/P Assessment and plan (1) Alcohol withdrawal delirium, acute, hyperactive: Status: Acute Comment: pt was not on benzo or alcohol at [facility] and had more withdrawal. Will work towards complete abstinence from alcohol as discussed with today complicated course due to alcohol dependence and withdrawal and more falls and congestive heart failure. pt counseled that he has lost control of his health due to alcohol withdrawal and dependence. (2) Delirium due to another medical condition: Status: Acute Comment: recent illness and also alcoholism. will replace thiamine. mild low na of 131 today. hx of siadh much improved. fluid restrict 2000cc/daily including ensure. change to normal diet. (3) Congestive heart failure: Status: Acute Comment: resolved and is on diuretic. will decrease dose. of note pt was very bradycardic on clonidine. that has been stopped. will decrease metoprolol as well. (4) Closed fracture of proximal end of femur: Status: Acute Comment: 50% wt bearing resume therapy (5) Atrial fibrillation, chronic: Status: Acute Comment: rate control and continue eliquis Time Spent With Patient Time: Total time spent is greater than 50% in coordination of care (as documented) at patient's floor/unit and/or counseling patient: 40 mins QUALITY VTE Deep Vein Thrombosis/Pulmonary Embolism Present on Admission: No
[2019-11-05] MEDS ORDERED: OLANZapine 5 MG TABLET PO PRN (16:15)
[2019-11-05] MEDS: NICOTINE 21 MG PATCH TOPICAL SCH (19:21)
[2019-11-05] MEDS: MELATONIN 3 MG TABLET PO SCH (20:47)
[2019-11-05] MEDS: TAMSULOSIN 0.4 MG CAPSULE PO SCH (20:47)
[2019-11-05] MEDS: chlordiazePOXIDE 5 MG CAPSULE PO PRN (22:39)
[2019-11-06] MEDS: HYDROcodone/APAP 5/325MG TABLET PO PRN ×5 (01:18→20:48)
[2019-11-06] MEDS: METHOCARBAMOL 750 MG TABLET PO PRN (02:09)
[2019-11-06] MEDS: 0.9 % SODIUM CHLORIDE 10 ML SYRINGE IV SCH ×3 (05:36→20:49)
[2019-11-06 07:09] LABS: ALT/SGPT 20 U/l (0-40); AST/SGOT 19 U/l (0-37); Albumin 2.9 gm/dL (3.2-5.2); Albumin/Globulin Ratio 1.2 (1.0-2.3); Alkaline Phosphatase 64 U/L (39-117); Bilirubin,Total 0.9 mg/dL (0.0-1.0); Blood Urea Nitrogen 21 mg/dl (8-23); Calcium 8.4 mg/dl (8.6-10.4); Chloride 97 mmol/L (96-108); Globulin 2.5 gm/dL (2.2-3.7); Glomerular Filtration Rate 89; Glucose 98 mg/dL (70-105); Phosphorous 3.8 mg/dL (2.7-4.5)
[2019-11-06 07:18] LABS: Carbon Dioxide 22 mmol/L (22-30)
[2019-11-06] MEDS ORDERED: POTASSIUM CHLORIDE 20 MEQ TABLET PO ONE (08:59)
[2019-11-06] MEDS: APIXABAN 5 MG TABLET PO SCH ×2 (09:25→20:45)
[2019-11-06] MEDS: MULTIVIT,THER IRON,CA,FA & MIN 1 TABLET PO SCH (09:25)
[2019-11-06] MEDS: CARVEDILOL 6.25 MG TABLET PO SCH ×2 (09:25→16:54)
[2019-11-06] MEDS: THIAMINE 100 MG TABLET PO SCH ×3 (09:25→20:46)
[2019-11-06] MEDS: LISINOPRIL 20 MG TABLET PO SCH (09:25)
[2019-11-06] MEDS: FUROSEMIDE 40 MG TABLET PO SCH ×2 (09:25→09:30)
[2019-11-06] MEDS: DOCUSATE SODIUM 100 MG CAPSULE PO SCH ×2 (09:26→20:46)
[2019-11-06] MEDS: SPIRONOLACTONE 25 MG TABLET PO SCH (09:26)
[2019-11-06] MEDS: CARVEDILOL 12.5 MG TABLET PO SCH (09:30)
[2019-11-06] MEDS: NICOTINE 21 MG PATCH TOPICAL SCH (12:12)
--- NOTE | 2019-11-06 13:38 | Internal Med Progress Note ---
SUBJECTIVE Subjective Patient information: Note initiated : 11/06/19 at 1:27 pm Service Date, if different from initiated Date: [] Patient: Pedrito Escudero 74 y/o M admitted on 11/04/19 for SOB . Chief Complaint: pt feels better and is eating we had a long visit. 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 He was recruited to [employer] and played there but suffered left knee ACL tear and could no longer play football but maintained his scholarship. 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 Pt admits to increased alcohol which he didnt drink at all in highschool due to his desire for health. Today he tells me this is [place] but told me was a sportsmen convention and argued with me that I was at the [employer] and we met night before then kept moving it a day earlier with me convincing him he has been hospitalized over 14 days for right hip fracture complicated by alcohol withdrawal. pt inconsistent on what he will believe. Constitutional Vitals: Vital Signs Temp Pulse Resp BP Pulse Ox 97.8 F 46 L 18 133/96 96 11/06/19 10:29 11/06/19 12:23 11/06/19 12:23 11/06/19 12:03 11/06/19 12:23 Period Temp Pulse Resp BP Sys/Castro Pulse Ox Last 24 Hr 97.4 F-99.5 F 35-77 15-24 90-138/54-96 92-98 Intake and Output 11/05/19 11/06/19 11/06/19 21:59 05:59 13:59 Intake Total 480 480 60 Output Total 200 250 325 Balance 280 230 -265 Weight 85.684 kg GEN WDWN WM in NAD eating breakfast bright eyed. able to give good life history CV irregular but rate controlled Lungs CTA no rales or wheezes ABD soft Calves no edema Skin warm and dry Mentation alert and oriented to person date but intermittent on hospital vs [facility]. able to report fracture right leg and subsequent fall with left leg fracture but unable to give history about the fluid overload admission. Intake & Output: Intake & Output 11/05/19 11/06/1911/05/20 21:59 05:59 13:59 Intake Total 480 480 60 Output Total 200 250 325 Balance 280 230 -265 Weight 85.684 kg Intake: Nourishment/Supplement quantity 240 (ml) Oral 240 480 60 Output: Urine Catheter Amount 125 Void Amount 200 250 200 Other: Meal Dinner Percent of Meal Consumed 100% Nourishment/Supplement name Ensure Enlive Urine Appearance Clear Clear Clear Urine Color Dark Yellow Dark Yellow Light Makayla Dark Makayla Urine Odor Normal OBJ DATA Labs CBC & Chem 7: 11/04/19 07:58 11/06/19 05:10 Labs: Abnormal Lab Results 11/06/19 11/04/19 11/04/19 05:10 07:58 07:58 WBC RBC Hgb Hct Gran % Lymph % (Auto) Gran # Lymph # (Auto) D-Dimer 3.76 H Sodium 131 L 131 L Carbon Dioxide 18 L Glucose 129 H Calcium 8.4 L 8.5 L Total Bilirubin 1.6 H NT-Pro-B Natriuret Pep Total Protein 5.4 L Albumin 2.9 L 11/04/19 11/04/19 07:58 07:51 WBC 11.2 H RBC 3.05 L Hgb 10.0 L Hct 30.2 L Gran % 85.7 H Lymph % (Auto) 6.0 L Gran # 9.59 H Lymph # (Auto) 0.67 L D-Dimer Sodium Carbon Dioxide Glucose Calcium Total Bilirubin NT-Pro-B Natriuret Pep 6789.0 H Total Protein Albumin Meds: Medications Hydrocodone Bitart/Acetaminophen ([place] 5/325mg) 1 tab PO Q4HP PRN; Protocol PRN Reason: Per Pain Protocol Last Admin: 11/06/19 12:51 Dose: 1 tab Documented by: Apixaban (Eliquis) 2.5 mg PO BID [facility] Last Admin: 11/06/19 09:25 Dose: 2.5 mg Documented by: [facility] Last Admin: 11/06/19 09:25 Dose: 6.25 mg Documented by: Chlordiazepoxide HCl (Librium) 10 mg PO Q8HP PRN PRN Reason: Alcohol Withdrawal Last Admin: 11/05/19 22:39 Dose: 10 mg Documented by: Docusate Sodium (Colace) 100 mg PO BID [facility] Last Admin: 11/06/19 09:26 Dose: 100 mg Documented by: Furosemide (Lasix) 40 mg PO DAILY [facility] Last Admin: 11/06/19 09:25 Dose: 40 mg Documented by: Iron Carb/Multivit/Exercise Teacher/Folic Acid (Multivitamin W/Minerals) 1 tab PO DAILY [facility] Last Admin: 11/06/19 09:25 Dose: 1 tab Documented by: Lactulose (Cephulac) 10 gm PO DAILYP PRN PRN Reason: Constipation Lisinopril (Zestril) 20 mg PO DAILY [facility] Last Admin: 11/06/19 09:25 Dose: 20 mg Documented by: Melatonin (Melatonin 3mg Tablet) 3 mg PO [facility] Last Admin: 11/05/19 20:47 Dose: 3 mg Documented by: Methocarbamol (Robaxin) 750 mg PO BIDP PRN PRN Reason: Muscle Spasm Last Admin: 11/06/19 02:09 Dose: 750 mg Documented by: Nicotine (Nicoderm) 21 mg TOPICAL DAILY@1000 [facility] Last Admin: 11/06/19 12:12 Dose: 21 mg Documented by: Olanzapine (Zyprexa) 5 mg PO HSP PRN PRN Reason: Anxiety Ondansetron HCl (Zofran) 4 mg IV Q4HP PRN; Protocol PRN Reason: Nausea And Vomiting Senna (Senokot) 2 tab PO HSP PRN PRN Reason: Constipation Sodium Chloride (Saline Flush) 10 ml IV Q8 [facility] Last Admin: 11/06/19 05:36 Dose: 10 ml Documented by: Spironolactone (Aldactone) 50 mg PO DAILY [facility] Last Admin: 11/06/19 09:26 Dose: 50 mg Documented by: Tamsulosin HCl (Flomax) 0.4 mg PO [facility] Last Admin: 11/05/19 20:47 Dose: 0.4 mg Documented by: Thiamine HCl (Vitamin B1) 100 mg PO TID [facility] Stop: 11/07/19 21:01 Last Admin: 11/06/19 09:25 Dose: 100 mg Documented by: A/P Assessment and plan (1) Alcohol withdrawal delirium, acute, hyperactive: Status: Acute Comment: pt was not on benzo or alcohol at [facility] and had more withdrawal. Will work towards complete abstinence from alcohol as discussed with today complicated course due to alcohol dependence and withdrawal and more falls and congestive heart failure. pt counseled that he has lost control of his health due to alcohol withdrawal and dependence. (2) Delirium due to another medical condition: Status: Acute Comment: recent illness and also alcoholism. will replace thiamine. mild low na of 131 today. hx of siadh much improved. fluid restrict 2000cc/daily including ensure. change to normal diet. (3) Atrial fibrillation, chronic: Status: Acute Comment: rate control and continue eliquis (4) Congestive heart failure: Status: Acute Comment: will diurese with furosemide 40 mg bid and replace mag, k control HR pt with acute diastolic chf Time Spent With Patient Time: Total time spent is greater than 50% in coordination of care (as documented) at patient's floor/unit and/or counseling patient: 45 QUALITY VTE Deep Vein Thrombosis/Pulmonary Embolism Present on Admission: No
[2019-11-06] MEDS: MELATONIN 3 MG TABLET PO SCH (20:47)
[2019-11-06] MEDS: TAMSULOSIN 0.4 MG CAPSULE PO SCH (20:47)
[2019-11-06] MEDS: chlordiazePOXIDE 5 MG CAPSULE PO PRN (22:00)
[2019-11-06] MEDS ORDERED: LORazepam 2 MG/ML VIAL ONE (23:18)
[2019-11-07] MEDS ORDERED: LORazepam 2 MG/ML VIAL ONE (04:07)
[2019-11-07] MEDS ORDERED: hydrALAZINE 20 MG/ML VIAL ONE (04:37)
[2019-11-07] MEDS: 0.9 % SODIUM CHLORIDE 10 ML SYRINGE IV SCH ×3 (05:09→21:50)
[2019-11-07] MEDS: APIXABAN 5 MG TABLET PO SCH ×2 (10:12→19:41)
[2019-11-07] MEDS: SPIRONOLACTONE 25 MG TABLET PO SCH (10:12)
[2019-11-07] MEDS: THIAMINE 100 MG TABLET PO SCH ×3 (10:12→19:41)
[2019-11-07] MEDS: DOCUSATE SODIUM 100 MG CAPSULE PO SCH ×2 (10:12→19:42)
[2019-11-07] MEDS: MULTIVIT,THER IRON,CA,FA & MIN 1 TABLET PO SCH (10:12)
[2019-11-07] MEDS: LISINOPRIL 20 MG TABLET PO SCH (10:12)
[2019-11-07] MEDS: CARVEDILOL 6.25 MG TABLET PO SCH (10:12)
[2019-11-07] MEDS: FUROSEMIDE 40 MG TABLET PO SCH (10:13)
[2019-11-07] MEDS: METHOCARBAMOL 750 MG TABLET PO PRN (10:13)
[2019-11-07] MEDS: HYDROcodone/APAP 5/325MG TABLET PO PRN ×2 (10:13→18:23)
[2019-11-07] MEDS: NICOTINE 21 MG PATCH TOPICAL SCH (10:13)
[2019-11-07] MEDS: chlordiazePOXIDE 5 MG CAPSULE PO PRN ×2 (10:18→15:25)
--- NOTE | 2019-11-07 16:40 | Internal Med Progress Note ---
SUBJECTIVE Subjective Patient information: Note initiated : 11/07/19 at 4:34 pm Service Date, if different from initiated Date: [] Patient: Pedrito Escudero 74 y/o M admitted on 11/04/19 for SOB . Chief Complaint: still clear where he is had to come in last night so we could treat with lorazepam 2 mg IV after pt refused librium and zyprexa. slept well thereafter. Still wants to go home intermittently but disoriented counseled today. Pt needs to stop alcohol then will be ok. Principal diagnosis: alcohol withdrawal Constitutional Vitals: Vital Signs Temp Pulse Resp BP Pulse Ox 98.2 F 61 20 93/59 92 11/07/19 10:54 11/07/19 12:01 11/07/19 06:01 11/07/19 12:01 11/07/19 12:01 Period Temp Pulse Resp BP Sys/Castro Pulse Ox Last 24 Hr 97.3 F-98.4 F 58-86 14-22 68-168/50-122 88-97 Intake and Output 11/07/19 11/07/19 11/07/19 05:59 13:59 21:59 Output Total 225 600 Balance -225 -600 GEN WDWN WM in NAD CV RRR Lungs CTA sleeping arouseable disoriented to place and date. Psyche mood and affect pleasant Intake & Output: Intake & Output 11/07/19 11/07/19 11/07/19 05:59 13:59 21:59 Output Total 225 600 Balance -225 -600 Output: Urine Catheter Amount 400 Void Amount 225 200 Other: Meal Breakfast Percent of Meal Consumed 100% Urine Appearance Clear Clear Urine Color Dark Yellow Light Makayla OBJ DATA Labs CBC & Chem 7: 11/04/19 07:58 11/06/19 05:10 Labs: Abnormal Lab Results 11/06/19 05:10 Sodium 131 L Calcium 8.4 L Total Protein 5.4 L Albumin 2.9 L Meds: Medications Hydrocodone Bitart/Acetaminophen ([place] 5/325mg) 1 tab PO Q4HP PRN; Protocol PRN Reason: Per Pain Protocol Last Admin: 11/07/19 10:13 Dose: 1 tab Documented by: Apixaban (Eliquis) 2.5 mg PO BID [facility] Last Admin: 11/07/19 10:12 Dose: Not Given Documented by: Carvedilol (Coreg) 6.25 mg PO BIDCC [facility] Last Admin: 11/07/19 10:12 Dose: 6.25 mg Documented by: Chlordiazepoxide HCl (Librium) 10 mg PO Q8HP PRN PRN Reason: Alcohol Withdrawal Last Admin: 11/07/19 15:25 Dose: 10 mg Documented by: Docusate Sodium (Colace) 100 mg PO BID [facility] Last Admin: 11/07/19 10:12 Dose: 100 mg Documented by: Furosemide (Lasix) 40 mg PO DAILY [facility] Last Admin: 11/07/19 10:13 Dose: 40 mg Documented by: Hydralazine HCl (Apresoline) 20 mg IV Q4-6HP PRN PRN Reason: Hypertension Iron Carb/Multivit/[place]/Folic Acid (Multivitamin W/Minerals) 1 tab PO DAILY [facility] Last Admin: 11/07/19 10:12 Dose: 1 tab Documented by: Lactulose (Cephulac) 10 gm PO DAILYP PRN PRN Reason: Constipation Lisinopril (Zestril) 20 mg PO DAILY [facility] Last Admin: 11/07/19 10:12 Dose: 20 mg Documented by: Lorazepam (Ativan) 2 mg IV Q2HP PRN PRN Reason: agitation Melatonin (Melatonin 3mg Tablet) 3 mg PO HS [facility] Last Admin: 11/06/19 20:47 Dose: 3 mg Documented by: Methocarbamol (Robaxin) 750 mg PO BIDP PRN PRN Reason: Muscle Spasm Last Admin: 11/07/19 10:13 Dose: 750 mg Documented by: Nicotine (Nicoderm) 21 mg TOPICAL DAILY@1000 [facility] Last Admin: 11/07/19 10:13 Dose: 21 mg Documented by: Olanzapine (Zyprexa) 5 mg PO HSP PRN PRN Reason: Anxiety Ondansetron HCl (Zofran) 4 mg IV Q4HP PRN; Protocol PRN Reason: Nausea And Vomiting Senna (Senokot) 2 tab PO HSP PRN PRN Reason: Constipation Sodium Chloride (Saline Flush) 10 ml IV Q8 [facility] Last Admin: 11/07/19 15:26 Dose: 10 ml Documented by: Spironolactone (Aldactone) 50 mg PO DAILY [facility] Last Admin: 11/07/19 10:12 Dose: 50 mg Documented by: Tamsulosin HCl (Flomax) 0.4 mg PO HS [facility] Last Admin: 11/06/19 20:47 Dose: 0.4 mg Documented by: Thiamine HCl (Vitamin B1) 100 mg PO TID [facility] Stop: 11/07/19 21:01 Last Admin: 11/07/19 15:25 Dose: 100 mg Documented by: A/P Assessment and plan (1) Alcohol withdrawal delirium, acute, hyperactive: Status: Acute Comment: pt was not on benzo or alcohol [facility] and had more withdrawal. Will work towards complete abstinence from alcohol as discussed with today complicated course due to alcohol dependence and withdrawal and more falls and congestive heart failure. pt counseled that he has lost control of his health due to alcohol withdrawal and dependence. (2) Delirium due to another medical condition: Status: Acute Comment: recent illness and also alcoholism. will replace thiamine. mild low na of 131 today. hx of siadh much improved. fluid restrict 2000cc/daily including ensure. change to normal diet. (3) Hyponatremia: Status: Acute Comment: due to hyponatremia has been on fluid restriction and regular diet not salt restricted (4) Congestive heart failure: Status: Acute Comment: resolved and is on diuretic. will decrease dose. of note pt was very bradycardic on clonidine. that has been stopped. will decrease metoprolol as well. Time Spent With Patient Time: Total time spent is greater than 50% in coordination of care (as documented) at patient's floor/unit and/or counseling patient: 35 QUALITY VTE Deep Vein Thrombosis/Pulmonary Embolism Present on Admission: No
[2019-11-07] MEDS ORDERED: BENZOCAINE/MENTHOL 1 LOZENGE PO PRN (19:22)
[2019-11-07] MEDS: TAMSULOSIN 0.4 MG CAPSULE PO SCH (19:42)
[2019-11-07] MEDS: MELATONIN 3 MG TABLET PO SCH (19:42)
[2019-11-07] MEDS: LORazepam 2 MG/ML VIAL IV PRN ×2 (21:41→23:29)
[2019-11-08] MEDS: hydrALAZINE 20 MG/ML VIAL IV PRN ×2 (00:08→14:55)
[2019-11-08] MEDS: HYDROcodone/APAP 5/325MG TABLET PO PRN ×4 (03:11→19:13)
[2019-11-08] MEDS: chlordiazePOXIDE 5 MG CAPSULE PO PRN (03:11)
[2019-11-08] MEDS: 0.9 % SODIUM CHLORIDE 10 ML SYRINGE IV SCH ×3 (05:30→20:53)
[2019-11-08] MEDS: DOCUSATE SODIUM 100 MG CAPSULE PO SCH ×2 (09:07→20:53)
[2019-11-08] MEDS: SPIRONOLACTONE 25 MG TABLET PO SCH (09:07)
[2019-11-08] MEDS: APIXABAN 5 MG TABLET PO SCH ×2 (09:08→20:53)
[2019-11-08] MEDS: FUROSEMIDE 40 MG TABLET PO SCH (09:08)
[2019-11-08] MEDS: MULTIVIT,THER IRON,CA,FA & MIN 1 TABLET PO SCH (09:08)
[2019-11-08] MEDS: LISINOPRIL 20 MG TABLET PO SCH (09:08)
[2019-11-08] MEDS: NICOTINE 21 MG PATCH TOPICAL SCH (09:47)
[2019-11-08] MEDS: chlordiazePOXIDE 5 MG CAPSULE PO SCH ×2 (09:47→17:07)
[2019-11-08] MEDS: IPRATROPIUM/ALBUTEROL 3 ML AMPUL.NEB NEB PRN ×2 (10:39→15:51)
[2019-11-08] MEDS: METHOCARBAMOL 750 MG TABLET PO PRN (17:07)
--- NOTE | 2019-11-08 19:04 | Internal Med Progress Note ---
SUBJECTIVE Subjective Patient information: Note initiated : 11/08/19 at 6:58 pm Service Date, if different from initiated Date: [] Patient: Pedrito Escudero 74 y/o M admitted on 11/04/19 for SOB . Chief Complaint: Follow-up withdrawal, heart failure Interval history: Patient noted to be picking at things, apparent hallucination early this morning. He notes that he felt like he was having hallucinations and seeing things. When I see him, he is awake and alert and oriented to person, place and situation. Breathing is getting better. Hips are still painful, both the postoperative hip and the one with the nonoperative fracture. No chest pain. Pertinent ROS: As above Constitutional Vitals: Vital Signs Temp Pulse Resp BP Pulse Ox 97.8 F 80 18 126/100 100 11/08/19 16:16 11/08/19 18:01 11/08/19 15:51 11/08/19 18:01 11/08/19 18:01 Period Temp Pulse Resp BP Sys/Castro Pulse Ox Last 24 Hr 97 F-98.2 F 39-95 18-22 112-185/56-156 89-100 Intake and Output 11/08/19 11/08/19 11/08/19 05:59 13:59 21:59 Intake Total 400 240 Output Total 200 425 450 Balance -200 -25 -210 General: Sitting up in bed's height in chair, appears comfortable Chest: Mildly coarse at bases bilaterally, respirations unlabored Cardiovascular: Irregular, distant, 1+ edema. Abdomen: Soft, nontender Neuro: Alert, oriented to person, place and situation. No active hallucinations during our encounter. Has generalized weakness, working with therapies. Intake & Output: Intake & Output 11/08/19 11/08/19 11/08/19 05:59 13:59 21:59 Intake Total 400 240 Output Total 200 425 450 Balance -200 -25 -210 Intake: Oral 400 240 Output: Void Amount 200 425 450 Other: Meal Breakfast Nourishment/Supplement name Ensure Urine Appearance Clear Urine Color Dark Yellow OBJ DATA Labs CBC & Chem 7: 11/04/19 07:58 11/06/19 05:10 Labs: Abnormal Lab Results 11/06/19 05:10 Sodium 131 L Calcium 8.4 L Total Protein 5.4 L Albumin 2.9 L Meds: Medications Hydrocodone Bitart/Acetaminophen ([place] 5/325mg) 1 tab PO Q4HP PRN; Protocol PRN Reason: Per Pain Protocol Last Admin: 11/08/19 14:54 Dose: 1 tab Documented by: Albuterol/Ipratropium (Duoneb) 3 ml NEB Q4HP PRN PRN Reason: Shortness Of Breath Last Admin: 11/08/19 15:51 Dose: 3 ml Documented by: Apixaban (Eliquis) 2.5 mg PO BID [facility] Last Admin: 11/08/19 09:08 Dose: 2.5 mg Documented by: Chlordiazepoxide HCl (Librium) 10 mg PO Q8H [facility] Last Admin: 11/08/19 17:07 Dose: 10 mg Documented by: Docusate Sodium (Colace) 100 mg PO BID [facility] Last Admin: 11/08/19 09:07 Dose: 100 mg Documented by: Furosemide (Lasix) 20 mg PO DAILY [facility] Last Admin: 11/08/19 09:08 Dose: 20 mg Documented by: Hydralazine HCl (Apresoline) 20 mg IV Q4-6HP PRN PRN Reason: Hypertension Last Admin: 11/08/19 14:55 Dose: 20 mg Documented by: Iron Carb/Multivit/[employer]ank [employer]/Folic Acid (Multivitamin W/Minerals) 1 tab PO DAILY [facility] Last Admin: 11/08/19 09:08 Dose: 1 tab Documented by: Lactulose (Cephulac) 10 gm PO DAILYP PRN PRN Reason: Constipation Lisinopril (Zestril) 20 mg PO DAILY [facility] Last Admin: 11/08/19 09:08 Dose: 20 mg Documented by: Lorazepam (Ativan) 2 mg IV Q2HP PRN PRN Reason: agitation Last Admin: 11/07/19 23:29 Dose: 2 mg Documented by: Melatonin (Melatonin 3mg Tablet) 3 mg PO HS [facility] Last Admin: 11/07/19 19:42 Dose: 3 mg Documented by: Methocarbamol (Robaxin) 750 mg PO BIDP PRN PRN Reason: Muscle Spasm Last Admin: 11/08/19 17:07 Dose: 750 mg Documented by: Nicotine (Nicoderm) 21 mg TOPICAL DAILY@1000 [facility] Last Admin: 11/08/19 09:47 Dose: 21 mg Documented by: Olanzapine (Zyprexa) 5 mg PO HSP PRN PRN Reason: Anxiety Last Admin: 11/07/19 19:42 Dose: 5 mg Documented by: Ondansetron HCl (Zofran) 4 mg IV Q4HP PRN; Protocol PRN Reason: Nausea And Vomiting Senna (Senokot) 2 tab PO HSP PRN PRN Reason: Constipation Sodium Chloride (Saline Flush) 10 ml IV Q8 [facility] Last Admin: 11/08/19 14:56 Dose: 10 ml Documented by: Spironolactone (Aldactone) 50 mg PO DAILY [facility] Last Admin: 11/08/19 09:07 Dose: 50 mg Documented by: Tamsulosin HCl (Flomax) 0.4 mg PO HS [facility] Last Admin: 11/07/19 19:42 Dose: 0.4 mg Documented by: Throat Lozenges (Cepacol) 1 lozenge PO PRN PRN PRN Reason: Sore Throat Last Admin: 11/07/19 19:41 Dose: 1 lozenge Documented by: A/P Narrative A/P Narrative: Alcohol withdrawal delirium, acute. Patient had significant beer and wine intake prior to his hip fractures. Apparently was not getting benzos or wine while at [employer]. Both he and his were in the room today, reiterated that he really needs to abstain from alcohol completely at this point given his falls and congestive heart failure. He is in agreement with that. 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 Begin Librium scheduled Continue PRN lorazepam Anticipate fairly rapid outpatient taper of Librium Replace thiamine Congestive heart failure. Improving with diuretic. Dose was decreased yes terday. He had been on clonidine during this hospitalization became bradycardic, that is been stopped. Metoprolol was decreased. Continue with 2000 cc/day fluid restriction Continue with current diuretics History of SIADH. Was noted during his hospitalization where he underwent ORIF of right hip fracture. Fluid restriction as above Monitor sodium Closed fracture of proximal end of femur (left greater trochanter). Being treated nonoperatively. Weightbearing status is 50%. Previous periprosthetic right hip fracture with ORIF on 10/26/2019. Continue physical therapy Atrial fibrillation, chronic. Currently rate controlled. Continue Eliquis Continue rate controlling agents Time Spent With Patient Time: Total time spent is greater than 50% in coordination of care (as documented) at patient's floor/unit and/or counseling patient: Total time spent with greater than 50% in coordination of care (as documented) at patient's floor/unit and/or counseling patient:: Greater than 35 minutes QUALITY VTE Deep Vein Thrombosis/Pulmonary Embolism Present on Admission: No
[2019-11-08] MEDS: MELATONIN 3 MG TABLET PO SCH (20:53)
[2019-11-08] MEDS: TAMSULOSIN 0.4 MG CAPSULE PO SCH (20:53)
[2019-11-09] MEDS: chlordiazePOXIDE 5 MG CAPSULE PO SCH ×2 (00:08→09:38)
[2019-11-09] MEDS: HYDROcodone/APAP 5/325MG TABLET PO PRN ×2 (00:08→09:33)
[2019-11-09] MEDS: hydrALAZINE 20 MG/ML VIAL IV PRN (02:47)
[2019-11-09] MEDS: LORazepam 2 MG/ML VIAL IV PRN (02:55)
[2019-11-09] MEDS: METHOCARBAMOL 750 MG TABLET PO PRN (03:38)
[2019-11-09] MEDS: 0.9 % SODIUM CHLORIDE 10 ML SYRINGE IV SCH ×2 (05:50→16:34)
[2019-11-09 05:59] LABS: Basophils # (Auto) 0.04 K/mcL (0.00-0.30); Basophils % (Auto) 0.5 % (0.0-2.0); Eosinophils % (Auto) 3.7 % (0.0-7.0); Granulocytes % (Auto) 67.4 % (38.0-78.0); Hematocrit 27.7 % (40.1-51.0); Lymphocytes # (Auto) 1.57 K/mcL (1.50-4.80); Lymphocytes % (Auto) 19.1 % (15.5-49.0); Mean Cell Volume 99.3 fL (80.0-100.0); Mean Corpuscular HGB Conc 32.5 g/dL (31.0-36.0); Mean Platelet Volume 9.3 fL (7.4-10.4); Monocytes # (Auto) 0.76 K/mcL (0.10-0.90); Monocytes % (Auto) 9.3 % (1.0-12.0); Platelet Count 359 K/mcL (140-440); RBC 2.79 M/mcL (4.63-6.08); Red Cell Distribution Width 13.2 % (11.5-14.5); WBC 8.2 K/mcL (4.50-11.00)
[2019-11-09 06:36] LABS: ALT/SGPT 28 U/l (0-40); AST/SGOT 23 U/l (0-37); Albumin 2.8 gm/dL (3.2-5.2); Alkaline Phosphatase 83 U/L (39-117); Bilirubin,Direct 0.4 mg/dL (0.0-0.3); Blood Urea Nitrogen 19 mg/dl (8-23); Calcium 8.6 mg/dl (8.6-10.4); Carbon Dioxide 23 mmol/L (22-30); Chloride 103 mmol/L (96-108); Globulin 2.7 gm/dL (2.2-3.7); Glomerular Filtration Rate 94; Glucose 115 mg/dL (70-105); Lactate Dehydrogenase 176 U/L (94-250); Phosphorous 3.9 mg/dL (2.7-4.5); Triglycerides 56 mg/dl (<150); Uric Acid 6.7 mg/dL (2.5-8.0)
[2019-11-09] MEDS: APIXABAN 5 MG TABLET PO SCH (09:31)
[2019-11-09] MEDS: SPIRONOLACTONE 25 MG TABLET PO SCH (09:31)
[2019-11-09] MEDS: MULTIVIT,THER IRON,CA,FA & MIN 1 TABLET PO SCH (09:31)
[2019-11-09] MEDS: LISINOPRIL 20 MG TABLET PO SCH (09:31)
[2019-11-09] MEDS: DOCUSATE SODIUM 100 MG CAPSULE PO SCH (09:32)
[2019-11-09] MEDS: FUROSEMIDE 40 MG TABLET PO SCH (09:32)
[2019-11-09] MEDS: NICOTINE 21 MG PATCH TOPICAL SCH (09:36)
--- NOTE | 2019-11-09 12:59 | Discharge Summary ---
Discharge Provider Provider Patient information: Note initiated : 11/09/19 at 12:58 pm Service Date, if different from initiated Date: [] Patient: Pedrito Escudero 74 y/o M admitted on 11/04/19 for SOB . Chief Complaint: Dyspnea Date of admission: 11/04/19 16:53 Discharge date: 11/09/19 Primary care physician: Dillan Jimenez Attending physician on admission: Carlos Collins Consults: 11/04/19 Consult to Physician [CONS] Stat Comment: Consulting Provider: Carlos Collins Reason For Exam: Physician to Consult Attending physician on discharge: Fabienne Pineda Discharge Meds Discharge Medications Home Medications lisinopril 20 mg PO DAILY 03/14/15 [History Confirmed 11/04/19 Last Taken 11/03/19 08:00] Eliquis 2.5 mg PO BID #56 tab 11/01/19 [Rx Confirmed 11/04/19 Last Taken 11/03/19 20:00] carvedilol 12.5 mg PO BIDCC #60 tab 11/01/19 [Rx Confirmed 11/04/19 Last Taken 11/03/19 17:00] docusate sodium 100 mg PO BID #30 cap 11/01/19 [Rx Confirmed 11/04/19 Last Taken 11/03/19 20:00] melatonin 3 mg PO HS #15 tab 11/01/19 [Rx Confirmed 11/04/19 Last Taken 11/03/19 20:00] tamsulosin 0.4 mg PO HS #30 cap 11/01/19 [Rx Confirmed 11/04/19 Last Taken 11/03/19 20:00] Nicotine [Nicoderm] 21 mg TOPICAL DAILY@1000 #0 11/09/19 [Rx Last Taken Unknown] chlordiazepoxide HCl 10 mg PO Q8H #24 cap 11/09/19 [Rx Last Taken Unknown] furosemide 20 mg PO DAILY #0 tab 11/09/19 [Rx Last Taken Unknown] hydrocodone-acetaminophen 1 tab PO Q4HP PRN #14 tab 11/09/19 [Rx Last Taken Unknown] lorazepam 1 mg PO TID PRN #10 tab 11/09/19 [Rx Last Taken Unknown] methocarbamol 750 mg PO BIDP PRN #10 tab 11/09/19 [Rx Last Taken Unknown] tyihjbkf-gcqg-KR-calcium-mins [Thera M Plus (ferrous fumarat)] 1 tab PO DAILY #0 tab 11/09/19 [Rx Last Taken Unknown] spironolactone 50 mg PO DAILY #0 tab 11/09/19 [Rx Last Taken Unknown] thiamine HCl (vitamin B1) 100 mg PO QDAY #30 tab 11/09/19 [Rx Last Taken Unknown] COURSE Hospital Course Hospital course: History of present illness: Mr. Escudero is a 74 year old M fell on 10/21/2019 with. He had fx around his past R hip prosthesis and was admitted from 10/20-10/30. 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 Also had alcohol delirium tremens, afib, bilateral atrial dilation, occluded right common external iliac artery. infrarenal aneurysm. and hypertension. ORIF was on 10/26/2019. He fell at [facility] on 11/03/19 with a nondisplaced hip fracture left greater trochanter rec for non surgical management. Pt today came in with sob and w/u for PE found actually he had CHF. admitted for diuresis but was also given maintainence fluid in the EMD. He is however improved. tonight is confused and a horrible historian. Course: CHF: The patient was admitted and treated for acute on chronic diastolic heart failure. He had an echocardiogram from 10/26 which showed normal LV ejection fraction. Patient diuresed well, improvement in dyspnea, improvement in edema. At the time of discharge his weight is 188 pounds, which likely represents a good dry weight. Alcohol withdrawal: The patient previously had gone through alcohol withdrawal i n conjunction with his right hip fracture and ORIF. During subsequent hospitalizations for his left trochanteric, nonoperative hip fracture, he is maintained on wine with meals to prevent withdrawal. Apparently at his skilled facility he did not have alcohol or benzos and was experiencing withdrawal during this hospitalization. He was treated with as needed lorazepam, eventually started on lower dose Librium (10 mg 3 times a day) which resolved his hallucinosis and confusion. He will be discharged on Librium taper with PRN lorazepam. Both Dr. Collins and Martha have spoke with the patient about remaining abstinent from alcohol as it is significantly interfering with his health. He will be discharged with thiamine replacement. History of SIADH: Serum sodium was 139 at discharge. He was placed on 2000 mL fluid restriction in the hospital which he tolerated. Atrial fibrillation: Patient is rate controlled. He also experienced bradycardia with clonidine which she was given for withdrawal symptoms. He continues on Eliquis for stroke prophylaxis. Hypertension: Patient's blood pressure did not require amlodipine therapy, he is continued on lisinopril and carvedilol at discharge. If his blood pressure rises out of the hospital, amlodipine can be resumed as an outpatient. Hip fractures: Patient continued to work with physical therapy and will be discharged back to skilled facility for further therapies. Discharge diagnosis: Acute on chronic diastolic congestive heart failure Secondary discharge diagnosis: Alcohol withdrawal with delirium, resolved Atrial fibrillation, rate controlled, on Eliquis for stroke prophylaxis Right hip fracture, status post previous ORIF earlier this month Left hip fracture, nonoperative greater trochanter fracture Hyponatremia with history of SIADH, resolved Reason for admission: Dyspnea, congestive heart failure Time Spent with Patient Time attestation: Total time spent providing and/or coordinating discharge services: 40 minutes EXAM Constitutional Vitals: Temp Pulse Resp BP Pulse Ox 97.3 F 87 20 157/77 100 11/09/19 12:07 11/09/19 07:00 11/09/19 12:07 11/09/19 12:07 11/09/19 12:07 General: In bed no acute distress Chest: Clear bilaterally though mildly diminished in the bases, unlabored Cardiovascular: Irregular, trace lower extremity edema Abdomen: Soft, nontender Neuro: Alert, oriented to person, place, situation. No tremor, no hallucinations Discharge Data Data Completed and Pending Labs on day of discharge: Labs from last 24 hours 11/09/19 11/09/19 05:05 05:05 WBC 8.2 RBC 2.79 L Hgb 9.0 L Hct 27.7 L MCV 99.3 MCH 32.3 MCHC 32.5 RDW 13.2 Plt Count 359 MPV 9.3 Gran % 67.4 Lymph % (Auto) 19.1 [place] % (Auto) 9.3 Eos % (Auto) 3.7 Baso % (Auto) 0.5 Gran # 5.53 Lymph # (Auto) 1.57 [place] # (Auto) 0.76 Eos # (Auto) 0.30 Baso # (Auto) 0.04 Sodium 139 Potassium 3.5 Chloride 103 Carbon Dioxide 23 Anion Gap 13.0 BUN 19 Creatinine 0.7 GFR Calculation 94 Glucose 115 H Uric Acid 6.7 Calcium 8.6 Phosphorus 3.9 Magnesium 2.0 Total Bilirubin 1.0 Direct Bilirubin 0.4 H GGT 90 H AST 23 ALT 28 Alkaline Phosphatase 83 Lactate Dehydrogenase 176 Total Protein 5.5 L Albumin 2.8 L Globulin 2.7 Albumin/Globulin Ratio 1.0 Triglycerides 56 Impressions Impressions: EKG at admission: Atrial fibrillation without injury pattern, unchanged from previous Chest x-ray 11/03: IMPRESSION: 1. Increased cardiomegaly 2. Increasing bilateral interstitial infiltrates. Findings may be due to interstitial pulmonary edema but pneumonia including viral pneumonia is possible 3. Possible narrowing of the distal trachea. Follow-up examination or CT scan recommended to evaluate for mediastinal adenopathy CTA of the chest 11/03: IMPRESSION: 1. Negative pulmonary CTA. Negative examination for pulmonary embolus 2. Severe atherosclerotic disease including severe coronary artery calcification 3. Cardiomegaly with left ventricular and left atrial enlargement. No evidence for right heart strain 4. Bilateral pleural effusions are probably secondary to congestive heart failure 5. Pulmonary parenchymal infiltrates. Interlobular septal thickening is probably related to interstitial edema. Patchy infiltrates may be pulmonary edema or pneumonia. 6. Dilated main pulmonary artery consistent with pulmonary arterial hypertension Discharge Plan Patient/Caregiver Discharge Instructions Activity: as per physical therapy and increase activity as tolerated Diet: Low Sodium (2gm) Instructions: Heart Failure (DC), Heart Healthy Diet (DC) Activity Restrictions/Additional Instructions: Follow up with Dr. Adames [facility] if right heel wound does not heal within 10 days Prescriptions: New chlordiazepoxide HCl 5 mg Capsule 10 mg PO Q8H Qty: 24 RF: 0 furosemide 40 mg Tablet 20 mg PO DAILY Qty: 0 RF: 0 spironolactone 25 mg Tablet 50 mg PO DAILY Qty: 0 RF: 0 Thera M Plus (ferrous fumarat) 9 mg iron-400 mcg Tablet 1 tab PO DAILY Qty: 0 RF: 0 Nicotine [Nicoderm] 21 mg topical DAILY@1000 Qty: 0 RF: 0 lorazepam 1 mg tablet 1 mg PO TID PRN (Reason: anxiety) Qty: 10 RF: 0 thiamine HCl (vitamin B1) 100 mg tablet 100 mg PO QDAY Qty: 30 RF: 0 Continued lisinopril 20 MG tablet 20 mg PO DAILY RF: 0 Eliquis 5 mg Tablet 2.5 mg PO BID Qty: 56 RF: 0 carvedilol 12.5 mg Tablet 12.5 mg PO BIDCC Qty: 60 RF: 0 melatonin 3 mg Tablet 3 mg PO HS Qty: 15 RF: 0 tamsulosin 0.4 mg Capsule 0.4 mg PO HS Qty: 30 RF: 0 docusate sodium 100 mg Capsule 100 mg PO BID Qty: 30 RF: 0 hydrocodone-acetaminophen 5-325 mg Tablet 1 tab PO Q4HP PRN (Reason: Per Pain Protocol) Qty: 14 RF: 0 methocarbamol 750 mg Tablet 750 mg PO BIDP PRN (Reason: Muscle Spasm) Qty: 10 RF: 0 Discontinued methocarbamol 750 mg Tablet 750 mg PO TIDP PRN (Reason: Muscle Spasm) Qty: 25 RF: 0 amlodipine 10 mg Tablet 10 mg PO DAILY Qty: 30 RF: 0 Other Ambulatory Orders: OT Discharge Order (Routine) Facility: [facility] - Location: [facility] Ordered By: Fabienne Pineda Physical Therapy at Discharge - General (Routine) Facility: [facility] - Location: [facility] Ordered By: Fabienne Pineda Follow Up Plan Follow up with: Dillan Jimenez MD [Primary Care Provider] - Patient Disposition: Xfer SNF Rehab Potential: Fair I certify that the patient requires SNF services: Yes Overall status at discharge: patient is progressing back to baseline Discharge Orders: Discharge Order (Routine); Ordered 11/09/19 Ordered By: Fabienne Pineda QUALITY VTE Deep Vein Thrombosis/Pulmonary Embolism Present on Admission: No
== END 2019-11-09 15:00 | DRG 291 ==
LOC: ED 07:27 → ICU 16:53
PROVIDERS: ADMIT Internal Medicine; ATTEND Internal Medicine